=== PATIENT | male | born 1980 | race African-American/Black ===

== ENCOUNTER 2017-01-09 04:27 | Emergency (ER) | payer MEDICAID, OTHER ==
[~2017-01-09] VITALS: Ht 195.6 cm; Wt 94.0 kg
[~2017-01-09 04:27] MED LIST: DEPAKOTE PO; Docusate Sodium PO; FURO-151 PO; LAM25 PO; PHEN100C4 PO; VALP250C PO
[2017-01-09 07:32] VITALS: BP 128/71
== END 2017-01-09 08:10 | disposition home or self-care (01) ==
LOC: ER 08:05
DX: Z76.0 Encounter for issue of repeat prescription (principal)
CPT/HCPCS: 99283

== ENCOUNTER 2017-01-14 15:53 | Emergency (ER) | payer MEDICAID, OTHER ==
[~2017-01-14] VITALS: Ht 182.9 cm; Wt 86.0 kg
[2017-01-14] MEDS ORDERED: LORAZEPAM 2MG/ML CPJ ONE (16:13)
[2017-01-14] MEDS ORDERED: SODIUM CHLORIDE 0.9% 1,000 ML IV ONE (16:41)
[2017-01-14] MEDS ORDERED: LORAZEPAM 2MG/ML CPJ IV ONE (16:45)
[2017-01-14 18:41] LABS: BASOPHILS % 0.7 % (0.0-2.0); EOSINOPHILS % 0.4 % (0.0-5.0); HEMATOCRIT. 44.8 % (42.0-52.0); HEMOGLOBIN. 14.9 g/dL (14.0-18.0); LYMPHOCYTES % 10.7 % (20.0-50.0); MEAN CORPUSCULAR HEMOGLOBIN 30.1 pg (28.0-32.0); MEAN CORPUSCULAR HGB CONC 33.2 g/dL (31.0-37.0); MEAN CORPUSCULAR VOLUME 90.7 fL (80.0-94.0); MEAN PLATELET VOLUME 10.8 fl (7.4-10.4); MONOCYTES % 4.5 % (2.0-8.0); NEUTROPHILS % 83.7 % (40.0-76.0); PLATELET 143 x1000/uL (130-400); RED BLOOD CELL COUNT 4.94 mill/uL (4.7-6.1); RED CELL DISTRIBUTION WIDTH 14.4 % (11.6-14.6); WHITE BLOOD COUNT 6.9 x1000/uL (4.5-11.0)
[2017-01-14 18:45] LABS: CHLORIDE 105 mEq/L (98-107); INDEX HEMOLYSI 1 (1-3); INDEX ICTERIC 1 (1-4); INDEX LIPEMIC 1 (1-3)
[2017-01-14 18:55] LABS: ALANINE AMINOTRANSFERASE 16 IU/L (13-61); ALBUMIN 3.4 g/dL (3.4-5.0); ANION GAP 14; CALCIUM 8.8 mg/dL (8.5-10.1); CARBON DIOXIDE 28 mEq/L (21-32); ETHANOL BLOOD < 10 mg/dL; UREA NITROGEN BLOOD 15 mg/dL (7-21); eGFR > 60 mL/min (>60)
[2017-01-14 18:56] LABS: PHENYTOIN 0.8 ug/mL (10-20); VALPROIC ACID 44.7 ug/mL (50-100)
[2017-01-14 18:59] LABS: CARBAMAZEPINE < 0.5 ug/mL (4-12); PHENOBARBITAL < 2.1 ug/mL (15.0-40.0)
[2017-01-14] MEDS ORDERED: PHENYTOIN SODIUM 1,000 MG in SODIUM CHLORIDE 0.9% 100 ML IV ONE (19:15)
[2017-01-14 19:25] VITALS: BP 142/69
== END 2017-01-15 00:45 | disposition home or self-care (01) ==
LOC: ER 15:54
DX: G40.909 Epilepsy, unspecified, not intractable, without status epilepticus (principal); R91.1 Solitary pulmonary nodule; J18.9 Pneumonia, unspecified organism; F12.10 Cannabis abuse, uncomplicated; Z91.14 Patient's other noncompliance with medication regimen; Z98.890 Other specified postprocedural states
CPT/HCPCS: 36415; 70450; 71010; 80053; 80156; 80165; 80184; 80185; 85025; 93005; 96361; 96365; 99285; G0482; J1165; J2060; Z7610; J7030; J7050

== ENCOUNTER 2017-01-15 06:00 | Emergency (ER) | payer OTHER | END 2017-01-15 07:45 | disposition left against medical advice (07) | LOC: ER 07:33 | DX: Z53.21 Procedure and treatment not carried out due to patient leaving prior to being seen by health care provider (principal) ==

== ENCOUNTER 2017-01-24 02:48 | Emergency (ER) | payer MEDICAID, OTHER ==
[~2017-01-24] VITALS: Ht 195.6 cm; Wt 94.0 kg
[2017-01-24 02:59] VITALS: BP 143/69
[2017-01-24] MEDS ORDERED: PHENYTOIN SODIUM EXTENDED 100MG CAPSULE PO NR (07:30)
== END 2017-01-24 08:44 | disposition left against medical advice (07) ==
LOC: ER 05:09
DX: Z76.0 Encounter for issue of repeat prescription (principal); Z79.899 Other long term (current) drug therapy
CPT/HCPCS: 36415; 80185; 99283

== ENCOUNTER 2017-02-07 01:39 | Emergency (ER) | payer MEDICAID, OTHER ==
[~2017-02-07] VITALS: Ht 175.3 cm; Wt 69.0 kg
[2017-02-07] MEDS ORDERED: HYDROCODONE/ACETAMINOPHEN 10/325MG TABLET PO ONE (06:45)
[2017-02-07 08:37] VITALS: BP 133/81
== END 2017-02-07 09:47 | disposition home or self-care (01) ==
LOC: ER 05:41
DX: M25.552 Pain in left hip (principal); F17.210 Nicotine dependence, cigarettes, uncomplicated; G81.94 Hemiplegia, unspecified affecting left nondominant side
CPT/HCPCS: 73502; 99284; Z7610

== ENCOUNTER 2017-02-10 03:15 | Emergency (ER) | payer OTHER ==
[~2017-02-10] VITALS: Ht 193 cm; Wt 94.0 kg
[2017-02-10 03:39] VITALS: BP 149/87
== END 2017-02-10 07:09 | disposition left against medical advice (07) ==
LOC: ER 03:15
DX: M79.606 Pain in leg, unspecified (principal); Z53.21 Procedure and treatment not carried out due to patient leaving prior to being seen by health care provider

== ENCOUNTER 2017-02-16 03:13 | Emergency (ER) | payer OTHER ==
[~2017-02-16] VITALS: Ht 195.6 cm; Wt 91.0 kg
[2017-02-16] MEDS ORDERED: KETOROLAC 60MG/2ML VIAL IM ONE (07:30)
[2017-02-16 08:17] VITALS: BP 142/58
== END 2017-02-16 08:47 | disposition left against medical advice (07) ==
LOC: ER 07:12
DX: M79.652 Pain in left thigh (principal); Z79.899 Other long term (current) drug therapy; F17.200 Nicotine dependence, unspecified, uncomplicated
CPT/HCPCS: 96372; 99283; J1885; Z7610

== ENCOUNTER 2017-02-17 01:39 | Emergency (ER) | payer OTHER ==
[~2017-02-17] VITALS: Ht 195.6 cm; Wt 94.0 kg
[2017-02-17] MEDS: IBUPROFEN 600MG TABLET PO ONE (07:17)
[2017-02-17 07:51] VITALS: BP 138/79
== END 2017-02-17 08:05 | disposition home or self-care (01) ==
LOC: ER 01:40
DX: R60.0 Localized edema (principal); Z79.899 Other long term (current) drug therapy; F17.200 Nicotine dependence, unspecified, uncomplicated
CPT/HCPCS: 99283; Z7610

== ENCOUNTER 2017-03-03 02:01 | Emergency (ER) | payer MEDICAID, OTHER ==
[~2017-03-03] VITALS: Ht 195.6 cm; Wt 94.0 kg
[2017-03-03 06:17] VITALS: BP 140/81
[2017-03-03] MEDS ORDERED: ACETAMINOPHEN 500MG TABLET PO ONE (07:00)
== END 2017-03-03 08:03 | disposition home or self-care (01) ==
LOC: ER 02:01
DX: M25.552 Pain in left hip (principal); G89.29 Other chronic pain; F17.200 Nicotine dependence, unspecified, uncomplicated; Z92.29 Personal history of other drug therapy
CPT/HCPCS: 99282

== ENCOUNTER 2017-03-25 05:00 | Emergency (ER) | payer MEDICAID, OTHER ==
[~2017-03-25] VITALS: Ht 190.5 cm; Wt 94.0 kg
[2017-03-25 05:49] VITALS: BP 121/61
== END 2017-03-25 08:16 | disposition left against medical advice (07) ==
LOC: ER 08:09
DX: M25.552 Pain in left hip (principal); Z53.21 Procedure and treatment not carried out due to patient leaving prior to being seen by health care provider

== ENCOUNTER 2017-03-27 06:30 | Emergency (ER) | payer OTHER ==
[~2017-03-27] VITALS: Ht 182.9 cm; Wt 80.0 kg
[2017-03-27] MEDS ORDERED: IBUPROFEN 800MG TABLET PO ONE (08:45)
[2017-03-27 11:21] VITALS: BP 132/91
[2017-03-27] MEDS ORDERED: CEFTRIAXONE SODIUM 250 MG/VIAL IM ONE (11:45)
[2017-03-27] MEDS ORDERED: LIDOCAINE HCL 1% 20ML VIAL (Pyxis) INJ INFIL ONE (11:45)
[2017-03-27] MEDS ORDERED: AZITHROMYCIN 500 MG TABLET PO ONE (11:45)
== END 2017-03-27 13:14 | disposition home or self-care (01) ==
LOC: ER 06:30
DX: N45.3 Epididymo-orchitis (principal); L72.0 Epidermal cyst; L03.116 Cellulitis of left lower limb; K59.00 Constipation, unspecified; Z79.899 Other long term (current) drug therapy; Z98.890 Other specified postprocedural states
CPT/HCPCS: 76870; 93976; 96365; 99284; J0696; J3490; Z7610

== ENCOUNTER 2017-04-21 04:39 | Emergency (ER) | payer OTHER ==
[~2017-04-21] VITALS: Ht 180.3 cm; Wt 95.0 kg
[2017-04-21 07:30] VITALS: BP 110/80
[2017-04-21] MEDS ORDERED: PHENYTOIN SODIUM 100MG/2ML VIAL IV ONE (08:15)
[2017-04-21] MEDS ORDERED: PHENYTOIN SODIUM EXTENDED 100MG CAPSULE PO ONE (08:30)
== END 2017-04-21 09:00 | disposition home or self-care (01) ==
LOC: ER 08:20
DX: Z76.0 Encounter for issue of repeat prescription (principal); F17.200 Nicotine dependence, unspecified, uncomplicated
CPT/HCPCS: 36415; 80185; 99283; Z7610

== ENCOUNTER 2017-04-25 08:10 | Emergency (ER) | payer OTHER ==
[~2017-04-25] VITALS: Ht 195.6 cm; Wt 94.0 kg
[2017-04-25 08:17] VITALS: BP 126/72
[2017-04-25 12:45] LABS: BASOPHILS % 1.1 % (0.0-2.0); EOSINOPHILS % 3.8 % (0.0-5.0); HEMATOCRIT. 42.6 % (42.0-52.0); HEMOGLOBIN. 14.5 g/dL (14.0-18.0); LYMPHOCYTES % 34.1 % (20.0-50.0); MEAN CORPUSCULAR HEMOGLOBIN 31.5 pg (28.0-32.0); MEAN CORPUSCULAR VOLUME 92.2 fL (80.0-94.0); MEAN PLATELET VOLUME 10.7 fl (7.4-10.4); MONOCYTES % 8.1 % (2.0-8.0); NEUTROPHILS % 52.9 % (40.0-76.0); PLATELET 138 x1000/uL (130-400); RED BLOOD CELL COUNT 4.61 mill/uL (4.7-6.1); RED CELL DISTRIBUTION WIDTH 13.4 % (11.6-14.6)
[2017-04-25] MEDS ORDERED: HEPARIN 5000 UNITS/ML VIAL IV ONE (12:45)
[2017-04-25 12:52] LABS: PARTIAL THROMBOPLASTIN TIME 29.1 sec (24.0-34.0); PROTHROMBIN TIME 10.6 sec
[2017-04-25 13:01] LABS: CARBON DIOXIDE 30 mEq/L (21-32); CHLORIDE 108 mEq/L (98-107); PHENYTOIN 0.7 ug/mL (10-20)
[2017-04-25] MEDS ORDERED: PHENYTOIN SODIUM EXTENDED 100MG CAPSULE PO ONE ×2 (14:00→14:15)
[2017-04-25] MEDS ORDERED: WARFARIN SODIUM 5MG TABLET PO ONE (14:00)
== END 2017-04-25 15:32 | disposition left against medical advice (07) ==
LOC: ER 11:04 → CANBEDREQ 16:51
DX: I82.432 Acute embolism and thrombosis of left popliteal vein (principal); F17.210 Nicotine dependence, cigarettes, uncomplicated; Z79.01 Long term (current) use of anticoagulants; Z99.3 Dependence on wheelchair; Z87.820 Personal history of traumatic brain injury
CPT/HCPCS: 36415; 73502; 73552; 80053; 80185; 83880; 85025; 85610; 85730; 93971; 99285; Z7610

== ENCOUNTER 2017-04-26 16:26 | Emergency (ER) | payer OTHER ==
[~2017-04-26] VITALS: Ht 177.8 cm; Wt 89.0 kg
[2017-04-26] MEDS ORDERED: ENOXAPARIN 120MG/0.8ML SYR SUBCUT ONE (18:30)
[2017-04-26 20:30] VITALS: BP 147/70
== END 2017-04-26 22:20 | disposition home or self-care (01) ==
LOC: ER 16:33
DX: I82.402 Acute embolism and thrombosis of unspecified deep veins of left lower extremity (principal); Z86.73 Personal history of transient ischemic attack (TIA), and cerebral infarction without residual deficits
CPT/HCPCS: 96372; 99283; J1650; Z7610

== ENCOUNTER 2017-05-11 03:24 | Emergency (ER) | payer OTHER ==
[~2017-05-11] VITALS: Ht 195.6 cm; Wt 91.0 kg
[2017-05-11] MEDS ORDERED: FAMOTIDINE 20MG TABLET PO ONE (08:30)
[2017-05-11 08:50] VITALS: BP 120/75
[2017-05-11] MEDS ORDERED: LORATADINE 10MG TABLET PO SCH (09:00)
== END 2017-05-11 09:10 | disposition home or self-care (01) ==
LOC: ER 03:24
DX: B86 Scabies (principal); Z86.73 Personal history of transient ischemic attack (TIA), and cerebral infarction without residual deficits
CPT/HCPCS: 99283

== ENCOUNTER 2017-05-16 02:47 | Emergency (ER) | payer OTHER ==
[~2017-05-16] VITALS: Ht 195.6 cm; Wt 94.0 kg
[2017-05-16 04:31] VITALS: BP 154/91
== END 2017-05-16 05:15 | disposition home or self-care (01) ==
LOC: ER 02:47
DX: I82.502 Chronic embolism and thrombosis of unspecified deep veins of left lower extremity (principal); R03.0 Elevated blood-pressure reading, without diagnosis of hypertension; M24.50 Contracture, unspecified joint; Z79.01 Long term (current) use of anticoagulants; F17.210 Nicotine dependence, cigarettes, uncomplicated
CPT/HCPCS: 99281; Z7610

== ENCOUNTER 2017-05-21 03:59 | Emergency (ER) | payer OTHER ==
[~2017-05-21] VITALS: Ht 182.9 cm; Wt 91.0 kg
[2017-05-21 04:12] VITALS: BP 142/56
== END 2017-05-21 11:19 | disposition left against medical advice (07) ==
LOC: ER 03:59
DX: Z53.21 Procedure and treatment not carried out due to patient leaving prior to being seen by health care provider (principal)
CPT/HCPCS: J7030

== ENCOUNTER 2017-06-07 03:51 | Emergency (ER) | payer OTHER ==
[~2017-06-07] VITALS: Ht 193 cm; Wt 97.0 kg
[2017-06-07 04:01] VITALS: BP 120/57
== END 2017-06-08 10:39 | disposition left against medical advice (07) ==
LOC: ER 10:58
DX: M25.559 Pain in unspecified hip (principal); Z53.21 Procedure and treatment not carried out due to patient leaving prior to being seen by health care provider

== ENCOUNTER 2017-06-17 22:12 | Inpatient (IN) | payer MEDICAID, OTHER ==
[~2017-06-17] VITALS: Ht 190.5 cm; Wt 93.4 kg
[2017-06-18] MEDS ORDERED: ASPIRIN 81MG TABLET PO ONE (02:00)
[2017-06-18 02:18] LABS: BASOPHILS % 0.7 % (0.0-2.0); EOSINOPHILS % 3.2 % (0.0-5.0); HEMATOCRIT. 42.4 % (42.0-52.0); HEMOGLOBIN. 14.6 g/dL (14.0-18.0); MEAN CORPUSCULAR HEMOGLOBIN 31.7 pg (28.0-32.0); MEAN CORPUSCULAR VOLUME 91.8 fL (80.0-94.0); MEAN PLATELET VOLUME 10.2 fl (7.4-10.4); MONOCYTES % 13.4 % (2.0-8.0); NEUTROPHILS % 57.7 % (40.0-76.0); PLATELET 157 x1000/uL (130-400); RED BLOOD CELL COUNT 4.61 mill/uL (4.7-6.1); RED CELL DISTRIBUTION WIDTH 13.2 % (11.6-14.6)
[2017-06-18 02:21] LABS: D-DIMER 0.41 mg/L FEU (<0.50); PROTHROMBIN TIME 10.9 sec (9.4-11.6)
[2017-06-18 02:32] LABS: CARBON DIOXIDE 26 mEq/L (21-32); CHLORIDE 100 mEq/L (98-107); ETHANOL BLOOD < 10 mg/dL; TROPONIN I < 0.02 ng/mL (0.00-0.04)
[2017-06-18 04:04] LABS: *AMPHETAMINES SCREEN URINE NEGATIVE (NEGATIVE); *BARBITURATES SCREEN URINE NEGATIVE (NEGATIVE); *BENZODIAZEPINES SCREEN URINE NEGATIVE (NEGATIVE); *COCAINE SCREEN URINE NEGATIVE (NEGATIVE); CANNABINOID URINE SCREEN PRESUMTIVE POSITIVE (NEGATIVE); METHADONE URINE SCREEN NEGATIVE (NEGATIVE); OPIATES URINE SCREEN NEGATIVE (NEGATIVE); PHENCYCLIDINE URINE SCREEN PRESUMTIVE POSITIVE (NEGATIVE)
[2017-06-18] MEDS ORDERED: VALPROATE SODIUM 1,000 MG in DEXT 5% WATER 100 ML IV NR (04:30)
[2017-06-18] MEDS ORDERED: PHENYTOIN SODIUM 1,000 MG in SODIUM CHLORIDE 0.9% 80 ML IV NR (04:30)
[2017-06-18] MEDS ORDERED: POTASSIUM BICARB/CIT ACID 25 MEQ TABLET.EFF PO NR (05:45)
[2017-06-18] MEDS: SODIUM CHLORIDE 0.9% INJ 3ML FLUSH IVF SCH ×2 (06:00→21:34)
[2017-06-18 09:00] VITALS: BP 129/74
[2017-06-18 09:37] VITALS: BP 129/74
[2017-06-18] MEDS ORDERED: FUROSEMIDE 40MG/4ML VIAL IVP SCH (10:00)
[2017-06-18 10:30] LABS: T4 FREE 0.94 ng/dL (0.76-1.46)
[2017-06-18] MEDS ORDERED: NA PHOS,M-B/NA PHOS,DI-BA ENEMA 118ML PR PRN (11:30)
[2017-06-18] MEDS ORDERED: CLONIDINE 0.1MG TABLET PO PRN (11:30)
[2017-06-18] MEDS ORDERED: DOCUSATE SODIUM 100MG CAPSULE PO PRN (11:30)
[2017-06-18] MEDS ORDERED: IPRATROPIUM/ALBUTEROL 0.5-3(2.5)MG/3ML NEB INH PRN (11:30)
[2017-06-18] MEDS ORDERED: GUAIFENESIN 200MG/10ML SUGAR FREE UDC PO PRN (11:30)
[2017-06-18] MEDS ORDERED: ACETAMINOPHEN 650MG/20.3ML UDC GT PRN (11:30)
[2017-06-18] MEDS ORDERED: ONDANSETRON HCL 4MG/2ML VIAL IV PRN (11:30)
[2017-06-18] MEDS ORDERED: HYDROCODONE/ACETAMINOPHEN 5/325MG TABLET PO PRN (11:30)
[2017-06-18] MEDS ORDERED: MAGNESIUM/ALUMINUM HYDROXIDE/SIMETHICONE 30ML UDC PO PRN (11:30)
[2017-06-18] MEDS: FUROSEMIDE 40MG/4ML VIAL IV SCH (11:30)
[2017-06-18] MEDS ORDERED: ACETAMINOPHEN 325MG TABLET PO PRN (11:30)
[2017-06-18] MEDS ORDERED: DIPHENHYDRAMINE 50MG/ML VIAL IV PRN (11:30)
[2017-06-18 12:00] VITALS: BP 135/71
[2017-06-18 16:00] VITALS: BP 125/56
[2017-06-18] MEDS ORDERED: RIVAROXABAN 10 MG TABLET PO SCH (17:00)
[2017-06-18] MEDS ORDERED: RIVAROXABAN 20 MG TABLET PO SCH (17:00)
[2017-06-18] MEDS: RIVAROXABAN 20 MG TABLET PO SCH (18:45)
[2017-06-18 20:00] VITALS: BP 139/58
[2017-06-18] MEDS ORDERED: PHENYTOIN SODIUM EXTENDED 100MG CAPSULE PO SCH (23:21)
[2017-06-19] VITALS: BP 140/60
[2017-06-19 01:15] LABS: CARBON DIOXIDE 28 mEq/L (21-32); CHLORIDE 107 mEq/L (98-107); CREATINE KINASE 172 IU/L (39-308)
[2017-06-19 01:17] LABS: CREATINE KINASE MB FRACTION 1.1 ng/mL (0.5-3.6); TROPONIN I < 0.02 ng/mL (0.00-0.04)
[2017-06-19 04:00] VITALS: BP 138/67
[2017-06-19] MEDS: VALPROIC ACID 250MG CAPSULE PO SCH ×2 (06:01→15:50)
[2017-06-19] MEDS: LAMOTRIGINE 25MG TABLET PO SCH ×2 (06:01→08:17)
[2017-06-19] MEDS: SODIUM CHLORIDE 0.9% INJ 3ML FLUSH IVF SCH ×2 (06:03→14:00)
[2017-06-19] MEDS: FUROSEMIDE 40MG/4ML VIAL IV SCH (08:17)
[2017-06-19] MEDS ORDERED: FUROSEMIDE 40MG TABLET PO SCH (09:00)
[2017-06-19 09:08] VITALS: BP 132/68
[2017-06-19 12:47] VITALS: BP 130/85
[2017-06-19 16:35] VITALS: BP 123/59
[2017-06-19] MEDS: RIVAROXABAN 20 MG TABLET PO SCH (17:03)
[2017-06-19 17:21] VITALS: BP 125/53
== END 2017-06-19 18:15 | disposition home or self-care (01) | DRG 197 ==
LOC: ER 22:12 → 6WST 06-18 02:12 → ENRESERV 06-18 07:07 → 6WST 06-18 10:09
PROVIDERS: ADMIT Family Medicine; ATTEND Family Medicine
DX: I82.432 Acute embolism and thrombosis of left popliteal vein (principal); E44.1 Mild protein-calorie malnutrition; G83.9 Paralytic syndrome, unspecified; Q24.0 Dextrocardia; I10 Essential (primary) hypertension; E78.00 Pure hypercholesterolemia, unspecified; E78.5 Hyperlipidemia, unspecified; E87.6 Hypokalemia; F17.210 Nicotine dependence, cigarettes, uncomplicated; G40.909 Epilepsy, unspecified, not intractable, without status epilepticus; J98.11 Atelectasis; Z79.01 Long term (current) use of anticoagulants; Z59.0 Homelessness; Z87.820 Personal history of traumatic brain injury; Z91.14 Patient's other noncompliance with medication regimen; Z79.899 Other long term (current) drug therapy; Z88.8 Allergy status to other drugs, medicaments and biological substances; Z68.25 Body mass index [BMI] 25.0-25.9, adult; Z86.718 Personal history of other venous thrombosis and embolism
CPT/HCPCS: 36415; 70450; 71010; 80048; 80053; 80061; 80165; 80185; 80305; 82550; 82553; 83036; 83605; 83690; 83880; 84439; 84443; 84484; 85025; 85379; 85610; 93005; 93306; 93970; 96365; 96366; 99291; C1893; G0482; J1165; J3490; J7050; J7060

== ENCOUNTER 2017-06-25 04:55 | Emergency (ER) | payer MEDICAID, OTHER ==
[~2017-06-25] VITALS: Ht 195.6 cm; Wt 97.0 kg
[2017-06-25 05:01] VITALS: BP 136/75
== END 2017-06-25 07:09 | disposition left against medical advice (07) ==
LOC: ER 04:55
DX: M79.605 Pain in left leg (principal); Z53.21 Procedure and treatment not carried out due to patient leaving prior to being seen by health care provider

== ENCOUNTER 2017-06-28 01:47 | Emergency (ER) | payer OTHER ==
[~2017-06-28] VITALS: Ht 185.4 cm; Wt 73.0 kg
[2017-06-28 07:45] VITALS: BP 130/88
== END 2017-06-28 09:53 | disposition home or self-care (01) ==
LOC: ER 02:51
DX: L25.9 Unspecified contact dermatitis, unspecified cause (principal); S70.369A Insect bite (nonvenomous), unspecified thigh, initial encounter; E78.00 Pure hypercholesterolemia, unspecified; I10 Essential (primary) hypertension; R56.9 Unspecified convulsions; W57.XXXA Bitten or stung by nonvenomous insect and other nonvenomous arthropods, initial encounter; Y93.89 Activity, other specified; Y92.89 Other specified places as the place of occurrence of the external cause
CPT/HCPCS: 99283

== ENCOUNTER 2017-07-10 02:56 | Emergency (ER) | payer OTHER ==
[~2017-07-10] VITALS: Ht 170.2 cm; Wt 72.0 kg
[2017-07-10] MEDS ORDERED: KETOROLAC 60MG/2ML VIAL IM ONE (06:45)
[2017-07-10 10:35] VITALS: BP 101/65
== END 2017-07-10 11:09 | disposition home or self-care (01) ==
LOC: ER 02:56
DX: M79.605 Pain in left leg (principal); Z91.018 Allergy to other foods; Z86.718 Personal history of other venous thrombosis and embolism; Z79.01 Long term (current) use of anticoagulants; Z87.828 Personal history of other (healed) physical injury and trauma
CPT/HCPCS: 73560; 93970; 96372; 99284; J1885

== ENCOUNTER 2017-07-13 04:46 | Emergency (ER) | payer OTHER ==
[~2017-07-13] VITALS: Ht 182.9 cm; Wt 93.0 kg
[2017-07-13 07:48] VITALS: BP 137/85
== END 2017-07-13 10:27 | disposition left against medical advice (07) ==
LOC: ER 04:46
DX: Z48.00 Encounter for change or removal of nonsurgical wound dressing (principal); Z53.21 Procedure and treatment not carried out due to patient leaving prior to being seen by health care provider

== ENCOUNTER 2017-07-15 09:11 | Emergency (ER) | payer OTHER | END 2017-07-15 10:55 | disposition left against medical advice (07) | LOC: ER 09:11 | DX: Z76.0 Encounter for issue of repeat prescription (principal); Z53.21 Procedure and treatment not carried out due to patient leaving prior to being seen by health care provider ==

== ENCOUNTER 2017-07-24 02:38 | Emergency (ER) | payer OTHER ==
[~2017-07-24] VITALS: Ht 195.6 cm; Wt 95.0 kg
[2017-07-24 02:50] VITALS: BP 138/79
[2017-07-24] MEDS ORDERED: KETOROLAC 30MG/ML VIAL IV STA (06:25)
[2017-07-24] MEDS ORDERED: SODIUM CHLORIDE 0.9% 1,000 ML IV ONE (06:25)
[2017-07-24] MEDS ORDERED: ONDANSETRON HCL 4MG/2ML VIAL IV STA (06:25)
[2017-07-24] MEDS ORDERED: KETOROLAC 60MG/2ML VIAL IM ONE (07:00)
== END 2017-07-24 09:20 | disposition left against medical advice (07) ==
LOC: ER 02:38
DX: M79.605 Pain in left leg (principal); G40.909 Epilepsy, unspecified, not intractable, without status epilepticus; Z87.828 Personal history of other (healed) physical injury and trauma; Z87.891 Personal history of nicotine dependence; Z91.011 Allergy to milk products; Z91.018 Allergy to other foods
CPT/HCPCS: 93971; 99284; J1885; J7030

== ENCOUNTER 2017-08-02 02:45 | Emergency (ER) | payer OTHER ==
[~2017-08-02] VITALS: Ht 195.6 cm; Wt 94.0 kg
[2017-08-02] MEDS ORDERED: KETOROLAC 30MG/ML VIAL IV STA (03:05)
[2017-08-02] MEDS ORDERED: MORPHINE SULFATE 2 MG/ML CPJ (NOT FOR IM USE) IV STA (03:24)
[2017-08-02 03:47] LABS: BASOPHILS % 0.8 % (0.0-2.0); EOSINOPHILS % 8.1 % (0.0-5.0); HEMATOCRIT. 43.2 % (42.0-52.0); HEMOGLOBIN. 14.7 g/dL (14.0-18.0); LYMPHOCYTES % 25.5 % (20.0-50.0); MEAN CORPUSCULAR VOLUME 94.3 fL (80.0-94.0); MEAN PLATELET VOLUME 10.6 fl (7.4-10.4); MONOCYTES % 6.9 % (2.0-8.0); NEUTROPHILS % 58.7 % (40.0-76.0); PLATELET 140 x1000/uL (130-400); RED BLOOD CELL COUNT 4.58 mill/uL (4.7-6.1); RED CELL DISTRIBUTION WIDTH 13.5 % (11.6-14.6)
[2017-08-02 04:02] LABS: CARBON DIOXIDE 24 mEq/L (21-32); CHLORIDE 110 mEq/L (98-107); ETHANOL BLOOD < 10 mg/dL
[2017-08-02 04:30] VITALS: BP 138/82
[2017-08-02] MEDS ORDERED: VALPROIC ACID 250MG CAPSULE PO NR (04:45)
[2017-08-02] MEDS ORDERED: PHENYTOIN SODIUM EXTENDED 100MG CAPSULE PO NR (04:45)
[2017-08-02 05:57] LABS: *AMPHETAMINES SCREEN URINE NEGATIVE (NEGATIVE); *BARBITURATES SCREEN URINE NEGATIVE (NEGATIVE); *BENZODIAZEPINES SCREEN URINE NEGATIVE (NEGATIVE); *COCAINE SCREEN URINE NEGATIVE (NEGATIVE); CANNABINOID URINE SCREEN PRESUMTIVE POSITIVE (NEGATIVE); METHADONE URINE SCREEN NEGATIVE (NEGATIVE); OPIATES URINE SCREEN NEGATIVE (NEGATIVE); PHENCYCLIDINE URINE SCREEN NEGATIVE (NEGATIVE)
[2017-08-02 06:08] LABS: D-DIMER 0.45 mg/L FEU (<0.50); PARTIAL THROMBOPLASTIN TIME 26.1 sec (23.4-31.0); PROTHROMBIN TIME 10.7 sec (9.4-11.6)
== END 2017-08-02 07:09 | disposition home or self-care (01) ==
LOC: ER 02:46
DX: R60.0 Localized edema (principal); S06.899S Other specified intracranial injury with loss of consciousness of unspecified duration, sequela; G81.94 Hemiplegia, unspecified affecting left nondominant side; X93.XXXS Assault by handgun discharge, sequela; F17.210 Nicotine dependence, cigarettes, uncomplicated; Z91.14 Patient's other noncompliance with medication regimen; Z91.011 Allergy to milk products; Z91.018 Allergy to other foods
CPT/HCPCS: 36415; 80053; 80165; 80185; 80305; 85025; 85379; 85610; 85730; 93970; 96374; 99285; G0482; J1885; Z7610

== ENCOUNTER 2017-08-25 03:24 | Emergency (ER) | payer OTHER ==
[~2017-08-25] VITALS: Ht 195.6 cm; Wt 98.0 kg
[2017-08-25] MEDS ORDERED: HYDROCODONE/ACETAMINOPHEN 5/325MG TABLET PO ONE (06:45)
[2017-08-25 07:35] VITALS: BP 107/65
[2017-08-25] MEDS ORDERED: PHENYTOIN SODIUM EXTENDED 100MG CAPSULE PO ONE (07:45)
[2017-08-25] MEDS ORDERED: DIVALPROEX SODIUM 250MG DR TABLET PO ONE (07:45)
== END 2017-08-25 08:15 | disposition home or self-care (01) ==
LOC: ER 03:24
DX: R21 Rash and other nonspecific skin eruption (principal); R60.0 Localized edema; I87.2 Venous insufficiency (chronic) (peripheral); R03.0 Elevated blood-pressure reading, without diagnosis of hypertension; F17.200 Nicotine dependence, unspecified, uncomplicated; Z91.011 Allergy to milk products
CPT/HCPCS: 99284; Z7610

== ENCOUNTER 2017-09-02 02:23 | Emergency (ER) | payer OTHER ==
[~2017-09-02] VITALS: Ht 195.6 cm; Wt 94.0 kg
[2017-09-02 06:40] VITALS: BP 127/78
== END 2017-09-02 07:04 | disposition home or self-care (01) ==
LOC: ER 02:47
DX: Z76.0 Encounter for issue of repeat prescription (principal); R56.9 Unspecified convulsions; F17.200 Nicotine dependence, unspecified, uncomplicated; Z91.011 Allergy to milk products
CPT/HCPCS: 99281

== ENCOUNTER 2017-09-10 02:03 | Emergency (ER) | payer OTHER ==
[~2017-09-10] VITALS: Ht 175.3 cm; Wt 97.0 kg
[2017-09-10 06:25] VITALS: BP 138/81
== END 2017-09-10 07:09 | disposition home or self-care (01) ==
LOC: ER 02:03
DX: R21 Rash and other nonspecific skin eruption (principal); Z91.011 Allergy to milk products
CPT/HCPCS: 99283; Z7610

== ENCOUNTER 2017-09-14 02:29 | Emergency (ER) | payer OTHER ==
[~2017-09-14] VITALS: Ht 193 cm; Wt 85.0 kg
[2017-09-14] MEDS ORDERED: NON FORMULARY PATIENT HOME MED EA INJ SCH (08:00)
[2017-09-14 09:00] LABS: EOSINOPHILS % 8.8 % (0.0-5.0); HEMATOCRIT. 43.9 % (42.0-52.0); HEMOGLOBIN. 14.5 g/dL (14.0-18.0); LYMPHOCYTES % 24.6 % (20.0-50.0); MEAN CORPUSCULAR HEMOGLOBIN 31.3 pg (28.0-32.0); MEAN CORPUSCULAR VOLUME 94.5 fL (80.0-94.0); MEAN PLATELET VOLUME 9.6 fl (7.4-10.4); MONOCYTES % 8.7 % (2.0-8.0); NEUTROPHILS % 56.9 % (40.0-76.0); PLATELET 208 x1000/uL (130-400); RED BLOOD CELL COUNT 4.65 mill/uL (4.7-6.1); RED CELL DISTRIBUTION WIDTH 13.8 % (11.6-14.6)
[2017-09-14 09:07] LABS: CHLORIDE 109 mEq/L (98-107)
[2017-09-14 09:18] LABS: CARBON DIOXIDE 31 mEq/L (21-32)
[2017-09-14 09:19] LABS: VALPROIC ACID < 3.0 ug/mL (50-100)
[2017-09-14 11:14] VITALS: BP 145/96
== END 2017-09-14 11:38 | disposition home or self-care (01) ==
LOC: ER 02:29
DX: L03.116 Cellulitis of left lower limb (principal); L03.115 Cellulitis of right lower limb; B35.4 Tinea corporis; Z91.011 Allergy to milk products
CPT/HCPCS: 36415; 80048; 80165; 80185; 85025; 99284; Z7610

== ENCOUNTER 2017-09-21 03:21 | Emergency (ER) | payer OTHER ==
[~2017-09-21] VITALS: Ht 195.6 cm; Wt 93.0 kg
[2017-09-21 03:32] VITALS: BP 127/68
== END 2017-09-21 09:02 | disposition left against medical advice (07) ==
LOC: ER 03:21
DX: R21 Rash and other nonspecific skin eruption (principal); Z53.21 Procedure and treatment not carried out due to patient leaving prior to being seen by health care provider

== ENCOUNTER 2017-10-01 04:21 | Emergency (ER) | payer OTHER | END 2017-10-01 05:39 | disposition left against medical advice (07) | LOC: ER 04:21 | DX: R21 Rash and other nonspecific skin eruption (principal); Z53.21 Procedure and treatment not carried out due to patient leaving prior to being seen by health care provider ==

== ENCOUNTER 2017-10-21 02:13 | Emergency (ER) | payer OTHER ==
[~2017-10-21] VITALS: Ht 193 cm; Wt 85.0 kg
[2017-10-21 02:26] VITALS: BP 135/68
== END 2017-10-21 09:48 | disposition left against medical advice (07) ==
LOC: ER 02:46
DX: Z53.21 Procedure and treatment not carried out due to patient leaving prior to being seen by health care provider (principal)

== ENCOUNTER 2017-10-26 04:10 | Emergency (ER) | payer OTHER ==
[~2017-10-26] VITALS: Ht 195.6 cm; Wt 98.0 kg
[2017-10-26 08:56] VITALS: BP 124/76
== END 2017-10-26 08:59 | disposition home or self-care (01) ==
LOC: ER 04:23
DX: G40.909 Epilepsy, unspecified, not intractable, without status epilepticus (principal); F17.200 Nicotine dependence, unspecified, uncomplicated; Z91.011 Allergy to milk products
CPT/HCPCS: 99283

== ENCOUNTER 2017-11-03 02:30 | Emergency (ER) | payer OTHER ==
[~2017-11-03] VITALS: Ht 195.6 cm; Wt 98.0 kg
[2017-11-03 02:47] VITALS: BP 140/82
== END 2017-11-03 10:46 | disposition left against medical advice (07) ==
LOC: ER 02:30
DX: Z53.21 Procedure and treatment not carried out due to patient leaving prior to being seen by health care provider (principal)

== ENCOUNTER 2017-11-15 01:27 | Emergency (ER) | payer OTHER ==
[~2017-11-15] VITALS: Ht 195.6 cm; Wt 97.0 kg
[2017-11-15 01:36] VITALS: BP 142/80
== END 2017-11-15 09:31 | disposition left against medical advice (07) ==
LOC: ER 01:27
DX: Z53.21 Procedure and treatment not carried out due to patient leaving prior to being seen by health care provider (principal); F17.210 Nicotine dependence, cigarettes, uncomplicated

== ENCOUNTER 2017-12-13 06:25 | Emergency (ER) | payer OTHER ==
[~2017-12-13] VITALS: Ht 195.6 cm; Wt 85.0 kg
[2017-12-13] MEDS ORDERED: PHENYTOIN SODIUM EXTENDED 100MG CAPSULE PO ONE (11:30)
[2017-12-13 11:55] VITALS: BP 145/89
[2017-12-19 10:06] LABS: BARBITURATE SCREEN Negative ug/mL (Cutoff:0.1); BENZODIAZEPINE SCREEN Negative ng/mL (Cutoff:20); OPIATES SCREEN Negative ng/mL (Cutoff:5); PHENCYCLIDINE SCREEN Negative ng/mL (Cutoff:8)
== END 2017-12-13 12:05 | disposition home or self-care (01) ==
LOC: ER 07:38
DX: G40.909 Epilepsy, unspecified, not intractable, without status epilepticus (principal); Z76.0 Encounter for issue of repeat prescription; F17.200 Nicotine dependence, unspecified, uncomplicated; Z91.011 Allergy to milk products
CPT/HCPCS: 36415; 80165; 80185; 80307; 99284

== ENCOUNTER 2017-12-18 03:36 | Emergency (ER) | payer OTHER ==
[~2017-12-18] VITALS: Ht 195.6 cm; Wt 97.0 kg
[2017-12-18 06:24] VITALS: BP 112/65
== END 2017-12-18 08:01 | disposition home or self-care (01) ==
LOC: ER 03:36
DX: Z76.0 Encounter for issue of repeat prescription (principal); Z91.011 Allergy to milk products; Z91.018 Allergy to other foods
CPT/HCPCS: 99283; Z7610

== ENCOUNTER 2017-12-19 04:10 | Emergency (ER) | payer OTHER ==
[~2017-12-19] VITALS: Ht 188 cm; Wt 100.0 kg
[2017-12-19] MEDS ORDERED: ACETAMINOPHEN 325MG TABLET PO ONE (08:45)
[2017-12-19 09:05] LABS: BASOPHILS % 1.1 % (0.0-2.0); EOSINOPHILS % 4.9 % (0.0-5.0); HEMATOCRIT. 38.6 % (42.0-52.0); HEMOGLOBIN. 13.2 g/dL (14.0-18.0); LYMPHOCYTES % 31.8 % (20.0-50.0); MEAN CORPUSCULAR HEMOGLOBIN 31.2 pg (28.0-32.0); MEAN PLATELET VOLUME 10.3 fl (7.4-10.4); MONOCYTES % 6.9 % (2.0-8.0); NEUTROPHILS % 55.3 % (40.0-76.0); PLATELET 190 x1000/uL (130-400); RED BLOOD CELL COUNT 4.24 mill/uL (4.7-6.1)
[2017-12-19 09:14] LABS: CHLORIDE 109 mEq/L (98-107)
[2017-12-19 09:24] LABS: INR 1.1; PARTIAL THROMBOPLASTIN TIME 26.9 sec (23.4-31.0)
[2017-12-19] MEDS ORDERED: ENOXAPARIN 40MG/0.4ML SYR SUBCUT ONE (10:00)
[2017-12-19] MEDS ORDERED: ENOXAPARIN 80MG/0.8ML SYR SUBCUT ONE ×2 (10:15→14:30)
[2017-12-19] MEDS ORDERED: CEPHALEXIN 500MG CAPSULE PO ONE (10:30)
[2017-12-19] MEDS ORDERED: ACETAMINOPHEN 325MG TABLET PO PRN (10:30)
[2017-12-19 11:35] VITALS: BP 140/72
[2017-12-19] MEDS ORDERED: ENOXAPARIN 80MG/0.8ML SYR SUBCUT NR (14:22)
== END 2017-12-19 15:02 | disposition left against medical advice (07) ==
LOC: ER 04:10 → EDBEDREQ 10:24 → ER 15:02 → CANBEDREQ 16:41
DX: I82.411 Acute embolism and thrombosis of right femoral vein (principal); G40.909 Epilepsy, unspecified, not intractable, without status epilepticus; Z59.0 Homelessness
CPT/HCPCS: 36415; 71045; 80053; 83880; 85025; 85610; 85730; 93005; 93970; 96372; 99285

== ENCOUNTER 2018-01-23 02:50 | Emergency (ER) | payer MEDICAID, OTHER ==
[~2018-01-23] VITALS: Ht 195.6 cm; Wt 97.5 kg
[2018-01-23 08:56] LABS: KETONES URINE NEGATIVE (NEGATIVE); LEUKOCYTE ESTERASE URINE NEGATIVE (NEGATIVE); NITRITE URINE NEGATIVE (NEGATIVE); OCCULT BLOOD URINE NEGATIVE (NEGATIVE); PH URINE 6.5 (4.5-8.0); PROTEIN URINE NEGATIVE (NEGATIVE); SPECIFIC GRAVITY URINE 1.015 (1.005-1.030)
[2018-01-23 08:59] LABS: CLARITY URINE CLEAR (CLEAR); COLOR URINE YELLOW (YELLOW)
[2018-01-23 09:52] VITALS: BP 158/92
== END 2018-01-23 10:34 | disposition left against medical advice (07) ==
LOC: ER 04:08
DX: M79.89 Other specified soft tissue disorders (principal); M79.661 Pain in right lower leg; F17.200 Nicotine dependence, unspecified, uncomplicated
CPT/HCPCS: 81003; 99283

== ENCOUNTER 2018-01-28 04:49 | Emergency (ER) | payer MEDICAID, OTHER ==
[~2018-01-28] VITALS: Ht 195.6 cm; Wt 95.0 kg
[2018-01-28 05:24] VITALS: BP 159/87
== END 2018-01-28 11:56 | disposition left against medical advice (07) ==
LOC: ER 04:49
DX: Z00.8 Encounter for other general examination (principal); Z53.21 Procedure and treatment not carried out due to patient leaving prior to being seen by health care provider

== ENCOUNTER 2018-01-30 03:16 | Emergency (ER) | payer MEDICAID, OTHER ==
[~2018-01-30] VITALS: Ht 195.6 cm; Wt 94.0 kg
[2018-01-30 03:49] VITALS: BP 128/69
== END 2018-01-30 09:21 | disposition left against medical advice (07) ==
LOC: ER 03:16
DX: Z53.21 Procedure and treatment not carried out due to patient leaving prior to being seen by health care provider (principal)

== ENCOUNTER 2018-02-03 01:35 | Emergency (ER) | payer OTHER ==
[~2018-02-03] VITALS: Ht 185.4 cm; Wt 97.0 kg
[2018-02-03 06:40] VITALS: BP 141/89
== END 2018-02-03 08:00 | disposition left against medical advice (07) ==
LOC: ER 01:35
DX: M79.604 Pain in right leg (principal); Z53.21 Procedure and treatment not carried out due to patient leaving prior to being seen by health care provider

== ENCOUNTER 2018-02-04 17:53 | Emergency (ER) | payer MEDICAID, OTHER ==
[~2018-02-04] VITALS: Ht 193 cm; Wt 90.0 kg
[2018-02-04] MEDS ORDERED: TRAMADOL 50MG TABLET PO ONE (21:15)
[2018-02-04] MEDS ORDERED: KETOROLAC 60MG/2ML VIAL IM ONE (21:15)
[2018-02-04 22:06] VITALS: BP 135/77
== END 2018-02-04 22:40 | disposition home or self-care (01) ==
LOC: ER 18:02
DX: S70.02XA Contusion of left hip, initial encounter (principal); G40.909 Epilepsy, unspecified, not intractable, without status epilepticus; Z91.011 Allergy to milk products; Z86.718 Personal history of other venous thrombosis and embolism; Z99.3 Dependence on wheelchair; V09.9XXA Pedestrian injured in unspecified transport accident, initial encounter; Y93.89 Activity, other specified; Y92.89 Other specified places as the place of occurrence of the external cause; Y99.8 Other external cause status
CPT/HCPCS: 72170; 73552; 96372; 99284; J1885; Z7610

== ENCOUNTER 2018-02-09 23:19 | Emergency (ER) | payer OTHER ==
[~2018-02-09] VITALS: Ht 193 cm; Wt 93.0 kg
[2018-02-10 07:59] VITALS: BP 138/77
== END 2018-02-10 08:20 | disposition home or self-care (01) ==
LOC: ER 23:19
DX: I82.492 Acute embolism and thrombosis of other specified deep vein of left lower extremity (principal); F17.200 Nicotine dependence, unspecified, uncomplicated; G40.909 Epilepsy, unspecified, not intractable, without status epilepticus; Z91.011 Allergy to milk products; Z91.018 Allergy to other foods; Z98.890 Other specified postprocedural states
CPT/HCPCS: 99283; Z7610

== ENCOUNTER 2018-02-12 01:58 | Emergency (ER) | payer OTHER ==
[~2018-02-12] VITALS: Ht 195.6 cm; Wt 93.0 kg
[2018-02-12 05:35] VITALS: BP 159/78
[2018-02-12] MEDS ORDERED: ACETAMINOPHEN 325MG TABLET PO ONE (07:15)
[2018-02-12] MEDS ORDERED: RIVAROXABAN 15 MG TABLET PO SCH (17:00)
== END 2018-02-12 09:50 | disposition home or self-care (01) ==
LOC: ER 01:58
DX: I82.409 Acute embolism and thrombosis of unspecified deep veins of unspecified lower extremity (principal); L03.119 Cellulitis of unspecified part of limb; I10 Essential (primary) hypertension; F17.200 Nicotine dependence, unspecified, uncomplicated; Z91.19 Patient's noncompliance with other medical treatment and regimen; Z86.718 Personal history of other venous thrombosis and embolism
CPT/HCPCS: 99283

== ENCOUNTER 2018-02-16 02:42 | Emergency (ER) | payer OTHER ==
[~2018-02-16] VITALS: Ht 193 cm; Wt 98.0 kg
[2018-02-16] MEDS ORDERED: IBUPROFEN 800MG TABLET PO ONE (03:45)
[2018-02-16] MEDS ORDERED: RIVAROXABAN 15 MG TABLET PO ONE (03:45)
[2018-02-16 06:39] VITALS: BP 139/62
== END 2018-02-16 06:43 | disposition home or self-care (01) ==
LOC: ER 03:01
DX: I82.493 Acute embolism and thrombosis of other specified deep vein of lower extremity, bilateral (principal); I10 Essential (primary) hypertension; R56.9 Unspecified convulsions; F17.200 Nicotine dependence, unspecified, uncomplicated; Z91.011 Allergy to milk products; Z91.018 Allergy to other foods; Z98.890 Other specified postprocedural states
CPT/HCPCS: 99283

== ENCOUNTER 2018-03-12 05:21 | Emergency (ER) | payer OTHER ==
[~2018-03-12] VITALS: Ht 194.9 cm; Wt 98.0 kg
[2018-03-12 05:26] VITALS: BP 143/65
== END 2018-03-12 11:24 | disposition left against medical advice (07) ==
LOC: ER 05:21
DX: M79.605 Pain in left leg (principal); Z53.21 Procedure and treatment not carried out due to patient leaving prior to being seen by health care provider

== ENCOUNTER 2018-03-31 02:55 | Emergency (ER) | payer OTHER ==
[~2018-03-31] VITALS: Ht 193 cm; Wt 91.0 kg
[2018-03-31] MEDS ORDERED: BACITRACIN ZINC OINT UDPKT TOP ONE (08:15)
[2018-03-31 09:23] VITALS: BP 127/89
== END 2018-03-31 09:25 | disposition home or self-care (01) ==
LOC: ER 02:55
DX: S80.812A Abrasion, left lower leg, initial encounter (principal); I82.5Z2 Chronic embolism and thrombosis of unspecified deep veins of left distal lower extremity; Z91.011 Allergy to milk products; X58.XXXA Exposure to other specified factors, initial encounter; Y93.89 Activity, other specified; Y92.89 Other specified places as the place of occurrence of the external cause; Y99.8 Other external cause status
CPT/HCPCS: 99283; Z7610

== ENCOUNTER 2018-04-14 03:54 | Emergency (ER) | payer OTHER ==
[~2018-04-14] VITALS: Ht 193 cm; Wt 94.0 kg
[2018-04-14 04:02] VITALS: BP 114/71
== END 2018-04-14 10:27 | disposition left against medical advice (07) ==
LOC: ER 04:23
DX: M79.605 Pain in left leg (principal); Z53.21 Procedure and treatment not carried out due to patient leaving prior to being seen by health care provider

== ENCOUNTER 2018-04-27 06:19 | Emergency (ER) | payer OTHER ==
[~2018-04-27] VITALS: Ht 193 cm; Wt 95.0 kg
[2018-04-27 08:01] VITALS: BP 135/74
== END 2018-04-27 10:49 | disposition left against medical advice (07) ==
LOC: ER 06:19
DX: Z53.21 Procedure and treatment not carried out due to patient leaving prior to being seen by health care provider (principal)

== ENCOUNTER 2018-05-21 22:42 | Emergency (ER) | payer OTHER ==
[~2018-05-21] VITALS: Ht 195.6 cm; Wt 94.0 kg
[2018-05-21 22:51] VITALS: BP 151/89
== END 2018-05-21 23:53 | disposition home or self-care (01) ==
LOC: ER 22:42
DX: R56.9 Unspecified convulsions (principal); Z76.0 Encounter for issue of repeat prescription; Z91.011 Allergy to milk products; Z98.890 Other specified postprocedural states; Z79.899 Other long term (current) drug therapy
CPT/HCPCS: 99283

== ENCOUNTER 2018-05-22 05:38 | Emergency (ER) | payer OTHER ==
[~2018-05-22] VITALS: Ht 195.6 cm; Wt 94.0 kg
[2018-05-22 07:04] VITALS: BP 124/67
== END 2018-05-22 07:20 | disposition home or self-care (01) ==
LOC: ER 05:38
DX: L03.115 Cellulitis of right lower limb (principal); I87.2 Venous insufficiency (chronic) (peripheral); G40.909 Epilepsy, unspecified, not intractable, without status epilepticus; Z87.820 Personal history of traumatic brain injury; Z91.018 Allergy to other foods; Z91.011 Allergy to milk products; Z99.3 Dependence on wheelchair
CPT/HCPCS: 99283; Z7610

== ENCOUNTER 2018-05-23 23:00 | Emergency (ER) | payer OTHER ==
[~2018-05-23] VITALS: Ht 195.6 cm; Wt 94.0 kg
[2018-05-24] MEDS ORDERED: CLINDAMYCIN PHOSPHATE 600MG/4ML VIAL IM ONE (03:30)
[2018-05-24] MEDS ORDERED: CLINDAMYCIN PHOSPHATE 600MG/4ML VIAL IM NR (04:00)
[2018-05-24 04:05] VITALS: BP 140/84
== END 2018-05-24 04:19 | disposition home or self-care (01) ==
LOC: ER 23:00
DX: L03.115 Cellulitis of right lower limb (principal); F17.200 Nicotine dependence, unspecified, uncomplicated; I87.2 Venous insufficiency (chronic) (peripheral); Z79.899 Other long term (current) drug therapy; Z98.890 Other specified postprocedural states; Z91.011 Allergy to milk products
CPT/HCPCS: 96372; 99283; J3490; Z7610

== ENCOUNTER 2018-06-12 03:46 | Emergency (ER) | payer OTHER ==
[~2018-06-12] VITALS: Ht 195.6 cm; Wt 97.0 kg
[2018-06-12] MEDS ORDERED: MORPHINE SULFATE 4 MG/ML CPJ (NOT FOR IM USE) IV ONE (06:45)
[2018-06-12 07:05] VITALS: BP 139/78
== END 2018-06-12 13:00 | disposition home or self-care (01) ==
LOC: ER 11:28
DX: Z76.0 Encounter for issue of repeat prescription (principal); G40.909 Epilepsy, unspecified, not intractable, without status epilepticus; I10 Essential (primary) hypertension
CPT/HCPCS: 99283; Z7610

== ENCOUNTER 2018-06-30 02:48 | Emergency (ER) | payer OTHER ==
[~2018-06-30] VITALS: Ht 193 cm; Wt 98.0 kg
[2018-06-30] MEDS ORDERED: ACETAMINOPHEN 325MG TABLET PO ONE (06:45)
[2018-06-30 07:20] LABS: BASOPHILS % 0.6 % (0.0-2.0); EOSINOPHILS % 3.4 % (0.0-5.0); HEMATOCRIT. 40.5 % (42.0-52.0); HEMOGLOBIN. 13.7 g/dL (14.0-18.0); LYMPHOCYTES % 39.2 % (20.0-50.0); MEAN CORPUSCULAR HEMOGLOBIN 31.4 pg (28.0-32.0); MEAN PLATELET VOLUME 9.5 fl (7.4-10.4); MONOCYTES % 7.6 % (2.0-8.0); NEUTROPHILS % 49.2 % (40.0-76.0); PLATELET 191 x1000/uL (130-400); RED BLOOD CELL COUNT 4.36 mill/uL (4.7-6.1); RED CELL DISTRIBUTION WIDTH 14.7 % (11.6-14.6)
[2018-06-30 07:26] LABS: CHLORIDE 109 mEq/L (98-107)
[2018-06-30 07:27] LABS: PARTIAL THROMBOPLASTIN TIME 28.6 sec (23.4-31.0); PROTHROMBIN TIME 10.4 sec (9.1-11.1)
[2018-06-30 07:47] VITALS: BP 129/82
[2018-06-30] MEDS ORDERED: RIVAROXABAN 15 MG TABLET PO SCH (17:00)
== END 2018-06-30 08:17 | disposition home or self-care (01) ==
LOC: ER 02:48
DX: I82.593 Chronic embolism and thrombosis of other specified deep vein of lower extremity, bilateral (principal); F17.200 Nicotine dependence, unspecified, uncomplicated; Z98.890 Other specified postprocedural states; Z79.899 Other long term (current) drug therapy; Z91.011 Allergy to milk products
CPT/HCPCS: 36415; 71045; 80053; 85025; 85610; 85730; 93005; 99285

== ENCOUNTER 2018-07-31 00:28 | Emergency (ER) | payer OTHER ==
[~2018-07-31] VITALS: Ht 195.6 cm; Wt 90.9 kg
[2018-07-31] MEDS ORDERED: PHENOBARBITAL 100MG TABLET PO ONE (04:15)
[2018-07-31 06:17] VITALS: BP 136/88
== END 2018-07-31 06:20 | disposition home or self-care (01) ==
LOC: ER 00:28
DX: G40.909 Epilepsy, unspecified, not intractable, without status epilepticus (principal); S20.469A Insect bite (nonvenomous) of unspecified back wall of thorax, initial encounter; W57.XXXA Bitten or stung by nonvenomous insect and other nonvenomous arthropods, initial encounter; Y93.9 Activity, unspecified; Y92.9 Unspecified place or not applicable
CPT/HCPCS: 99283

== ENCOUNTER 2018-08-03 17:34 | Emergency (ER) | payer OTHER ==
[~2018-08-03] VITALS: Ht 180.3 cm; Wt 75.0 kg
[2018-08-03] MEDS ORDERED: SODIUM CHLORIDE 0.9% 1,000 ML IV ONE (18:08)
[2018-08-03 18:52] LABS: BASOPHILS % 0.7 % (0.0-2.0); EOSINOPHILS % 10.3 % (0.0-5.0); HEMATOCRIT. 44.1 % (42.0-52.0); HEMOGLOBIN. 14.8 g/dL (14.0-18.0); LYMPHOCYTES % 26.5 % (20.0-50.0); MEAN CORPUSCULAR HEMOGLOBIN 31.4 pg (28.0-32.0); MEAN CORPUSCULAR VOLUME 93.4 fL (80.0-94.0); MEAN PLATELET VOLUME 10.7 fl (7.4-10.4); MONOCYTES % 9.1 % (2.0-8.0); NEUTROPHILS % 53.4 % (40.0-76.0); PLATELET 215 x1000/uL (130-400); RED BLOOD CELL COUNT 4.72 mill/uL (4.7-6.1); RED CELL DISTRIBUTION WIDTH 13.5 % (11.6-14.6)
[2018-08-03 18:59] LABS: CHLORIDE 108 mEq/L (98-107); INR 1.1; PROTHROMBIN TIME 10.7 sec (9.1-11.1)
[2018-08-03 19:09] LABS: ETHANOL BLOOD < 10 mg/dL
[2018-08-03] MEDS ORDERED: VALPROATE SODIUM 1,000 MG in DEXT 5% WATER 100 ML IV ONE (19:45)
[2018-08-04 05:20] VITALS: BP 119/69
== END 2018-08-04 05:28 | disposition home or self-care (01) ==
LOC: ER 17:34
DX: R56.9 Unspecified convulsions (principal); R21 Rash and other nonspecific skin eruption; B86 Scabies; I87.2 Venous insufficiency (chronic) (peripheral); Z91.14 Patient's other noncompliance with medication regimen; Z86.718 Personal history of other venous thrombosis and embolism; Z79.899 Other long term (current) drug therapy; Z91.011 Allergy to milk products
CPT/HCPCS: 36415; 80053; 80165; 80185; 85025; 85610; 93005; 96365; 99285; G0482; J3490; J7030; J7060

== ENCOUNTER 2018-08-15 04:34 | Emergency (ER) | payer MEDICAID, OTHER ==
[~2018-08-15] VITALS: Ht 195.6 cm; Wt 98.0 kg
[2018-08-15 05:38] VITALS: BP 136/84
== END 2018-08-15 05:55 | disposition home or self-care (01) ==
LOC: ER 04:34
DX: R56.9 Unspecified convulsions (principal); I10 Essential (primary) hypertension; Z91.011 Allergy to milk products; Z98.890 Other specified postprocedural states; Z79.899 Other long term (current) drug therapy
CPT/HCPCS: 99283

== ENCOUNTER 2018-08-15 09:57 | Emergency (ER) | payer MEDICAID | END 2018-08-15 10:10 | disposition left against medical advice (07) | LOC: ER 09:57 | DX: R68.89 Other general symptoms and signs (principal); Z76.0 Encounter for issue of repeat prescription; Z53.21 Procedure and treatment not carried out due to patient leaving prior to being seen by health care provider ==

== ENCOUNTER 2018-09-10 03:29 | Emergency (ER) | payer MEDICAID, OTHER ==
[~2018-09-10] VITALS: Ht 182.9 cm; Wt 91.0 kg
[2018-09-10 09:15] VITALS: BP 142/97
[2018-09-10] MEDS ORDERED: KETOROLAC 15MG/ML VIAL IM ONE (09:45)
== END 2018-09-10 10:24 | disposition left against medical advice (07) ==
LOC: ER 03:29
DX: M79.605 Pain in left leg (principal); M79.89 Other specified soft tissue disorders; I10 Essential (primary) hypertension; Z86.718 Personal history of other venous thrombosis and embolism; Z98.890 Other specified postprocedural states; Z79.899 Other long term (current) drug therapy; Z91.011 Allergy to milk products
CPT/HCPCS: 99283; J1885

== ENCOUNTER 2018-09-13 03:37 | Emergency (ER) | payer OTHER ==
[~2018-09-13] VITALS: Ht 195.6 cm; Wt 91.0 kg
[2018-09-13 03:40] VITALS: BP 142/82
== END 2018-09-13 08:15 | disposition home or self-care (01) ==
LOC: ER 03:37
DX: L25.9 Unspecified contact dermatitis, unspecified cause (principal); I10 Essential (primary) hypertension; Z79.899 Other long term (current) drug therapy; Z91.011 Allergy to milk products; Z86.718 Personal history of other venous thrombosis and embolism
CPT/HCPCS: 99282

== ENCOUNTER 2018-09-29 23:37 | Emergency (ER) | payer OTHER ==
[~2018-09-29] VITALS: Ht 193 cm; Wt 97.0 kg
[2018-09-30 07:04] VITALS: BP 136/66
== END 2018-09-30 09:06 | disposition home or self-care (01) ==
LOC: EDBD → ER 09-30 07:29
DX: B86 Scabies (principal); L08.9 Local infection of the skin and subcutaneous tissue, unspecified; R03.0 Elevated blood-pressure reading, without diagnosis of hypertension; Z91.011 Allergy to milk products; Z91.018 Allergy to other foods
CPT/HCPCS: 99283

== ENCOUNTER 2018-10-11 01:38 | Emergency (ER) | payer OTHER ==
[~2018-10-11] VITALS: Ht 198.1 cm; Wt 99.0 kg
[2018-10-11] MEDS ORDERED: KETOROLAC 30MG/ML VIAL IV STA (02:32)
[2018-10-11] MEDS ORDERED: CLINDAMYCIN 600 MG in DEXTROSE 5% WATER 50 ML IV ONE (02:45)
[2018-10-11 03:33] LABS: BASOPHILS % 0.9 % (0.0-2.0); EOSINOPHILS % 7.7 % (0.0-5.0); HEMATOCRIT. 44.1 % (42.0-52.0); HEMOGLOBIN. 14.7 g/dL (14.0-18.0); LYMPHOCYTES % 27.8 % (20.0-50.0); MEAN CORPUSCULAR HEMOGLOBIN 30.7 pg (28.0-32.0); MEAN CORPUSCULAR VOLUME 92.5 fL (80.0-94.0); MEAN PLATELET VOLUME 10.7 fl (7.4-10.4); MONOCYTES % 8.1 % (2.0-8.0); NEUTROPHILS % 55.5 % (40.0-76.0); PLATELET 193 x1000/uL (130-400); RED BLOOD CELL COUNT 4.77 mill/uL (4.7-6.1); RED CELL DISTRIBUTION WIDTH 12.8 % (11.6-14.6)
[2018-10-11 03:40] LABS: CHLORIDE 108 mEq/L (98-107)
[2018-10-11 03:42] LABS: INR 1.1; PROTHROMBIN TIME 10.6 sec (9.1-11.1)
[2018-10-11] MEDS ORDERED: SODIUM CHLORIDE 0.9% 1000ML BAG (SEPSIS BOLUS) IV ONE (04:30)
[2018-10-11 07:46] VITALS: BP 134/88
== END 2018-10-12 00:06 | disposition short-term general hospital (02) ==
LOC: EDBD → ER 01:38
DX: L03.116 Cellulitis of left lower limb (principal); L03.115 Cellulitis of right lower limb; Z86.718 Personal history of other venous thrombosis and embolism
CPT/HCPCS: 36415; 80053; 83605; 85025; 85610; 87040; 93971; 96365; 96375; 99285; J1885; J3490; J7030; J7060; Z7610

== ENCOUNTER 2018-11-02 00:31 | Emergency (ER) | payer OTHER ==
[~2018-11-02] VITALS: Ht 195.6 cm; Wt 98.0 kg
[2018-11-02 01:47] VITALS: BP 177/89
== END 2018-11-02 05:48 | disposition home or self-care (01) ==
LOC: EDBD → ER 00:31
DX: M79.662 Pain in left lower leg (principal); G89.29 Other chronic pain; G40.909 Epilepsy, unspecified, not intractable, without status epilepticus; I10 Essential (primary) hypertension; Z87.820 Personal history of traumatic brain injury; Z91.011 Allergy to milk products; Z98.890 Other specified postprocedural states; Z91.018 Allergy to other foods
CPT/HCPCS: 99283; Z7610

== ENCOUNTER 2018-11-19 02:49 | Emergency (ER) | payer OTHER ==
[~2018-11-19] VITALS: Ht 177.8 cm; Wt 77.0 kg
[2018-11-19] MEDS ORDERED: DIPHENHYDRAMINE 25MG CAPSULE PO ONE (08:45)
[2018-11-19 09:06] VITALS: BP 138/71
== END 2018-11-19 09:10 | disposition home or self-care (01) ==
LOC: EDBD → ER 03:33
DX: L29.9 Pruritus, unspecified (principal); I10 Essential (primary) hypertension; Z86.718 Personal history of other venous thrombosis and embolism; Z98.890 Other specified postprocedural states; Z91.011 Allergy to milk products; Z79.899 Other long term (current) drug therapy
CPT/HCPCS: 99283

== ENCOUNTER 2018-11-20 03:58 | Emergency (ER) | payer OTHER ==
[~2018-11-20] VITALS: Ht 193 cm; Wt 97.0 kg
[2018-11-20 04:10] VITALS: BP 148/91
[2018-11-20] MEDS ORDERED: BACITRACIN 15GM TUBE TOP ONE (07:00)
== END 2018-11-20 07:05 | disposition home or self-care (01) ==
LOC: EDBD → ER 03:58
DX: S30.810A Abrasion of lower back and pelvis, initial encounter (principal); X58.XXXA Exposure to other specified factors, initial encounter; Y93.9 Activity, unspecified; Y92.89 Other specified places as the place of occurrence of the external cause; G81.94 Hemiplegia, unspecified affecting left nondominant side; R03.0 Elevated blood-pressure reading, without diagnosis of hypertension
CPT/HCPCS: 99282

== ENCOUNTER 2018-12-12 05:16 | Emergency (ER) | payer MEDICAID, OTHER ==
[~2018-12-12] VITALS: Ht 195.6 cm; Wt 97.8 kg
[2018-12-12 06:26] VITALS: BP 142/71
== END 2018-12-12 06:28 | disposition home or self-care (01) ==
LOC: EDBD → ER 05:16
DX: R56.9 Unspecified convulsions (principal); I10 Essential (primary) hypertension; Z98.890 Other specified postprocedural states; Z79.899 Other long term (current) drug therapy; Z91.011 Allergy to milk products
CPT/HCPCS: 99283

== ENCOUNTER 2018-12-18 04:02 | Emergency (ER) | payer MEDICAID ==
[~2018-12-18] VITALS: Ht 195.6 cm; Wt 97.5 kg
[2018-12-18 04:12] VITALS: BP 140/78
== END 2018-12-18 07:51 | disposition left against medical advice (07) ==
LOC: EDBD → ER 04:02
DX: I10 Essential (primary) hypertension (principal); Z53.21 Procedure and treatment not carried out due to patient leaving prior to being seen by health care provider

== ENCOUNTER 2018-12-27 04:15 | Emergency (ER) | payer MEDICAID ==
[~2018-12-27] VITALS: Ht 195.6 cm; Wt 98.0 kg
[2018-12-27 08:54] VITALS: BP 169/95
== END 2018-12-27 08:58 | disposition home or self-care (01) ==
LOC: ER 04:15
DX: Z76.0 Encounter for issue of repeat prescription (principal); I10 Essential (primary) hypertension
CPT/HCPCS: 99283; Z7610

== ENCOUNTER 2019-01-18 04:43 | Emergency (ER) | payer MEDICAID ==
[~2019-01-18] VITALS: Ht 193 cm; Wt 127.0 kg
[2019-01-18] MEDS ORDERED: KETOROLAC 30MG/ML VIAL IM ONE (07:15)
[2019-01-18 07:50] LABS: BASOPHILS % 1.1 % (0.0-2.0); EOSINOPHILS % 7.8 % (0.0-5.0); HEMATOCRIT. 43.2 % (42.0-52.0); HEMOGLOBIN. 14.5 g/dL (14.0-18.0); LYMPHOCYTES % 26.4 % (20.0-50.0); MEAN CORPUSCULAR HEMOGLOBIN 31.1 pg (28.0-32.0); MEAN CORPUSCULAR VOLUME 92.8 fL (80.0-94.0); MEAN PLATELET VOLUME 10.5 fl (7.4-10.4); MONOCYTES % 10.4 % (2.0-8.0); NEUTROPHILS % 54.3 % (40.0-76.0); PLATELET 174 x1000/uL (130-400); RED BLOOD CELL COUNT 4.66 mill/uL (4.7-6.1); RED CELL DISTRIBUTION WIDTH 14.6 % (11.6-14.6)
[2019-01-18 07:56] LABS: CHLORIDE 109 mEq/L (98-107)
[2019-01-18 09:36] VITALS: BP 128/68
== END 2019-01-18 10:03 | disposition home or self-care (01) ==
LOC: ER 04:43
DX: I87.2 Venous insufficiency (chronic) (peripheral) (principal); F17.200 Nicotine dependence, unspecified, uncomplicated; I10 Essential (primary) hypertension; Z98.890 Other specified postprocedural states; Z79.899 Other long term (current) drug therapy; Z91.011 Allergy to milk products
CPT/HCPCS: 36415; 80053; 85025; 93970; 96372; 99284; J1885

== ENCOUNTER 2019-01-25 12:32 | Emergency (ER) | payer MEDICAID ==
[~2019-01-25] VITALS: Ht 185.4 cm; Wt 103.0 kg
[2019-01-25] MEDS ORDERED: SODIUM CHLORIDE 0.9% 1,000 ML IV ONE (12:51)
[2019-01-25] MEDS ORDERED: LORAZEPAM 2MG/ML CPJ IV ONE (13:15)
[2019-01-25 14:16] LABS: EOSINOPHILS % 3.4 % (0.0-5.0); HEMATOCRIT. 45.6 % (42.0-52.0); HEMOGLOBIN. 15.1 g/dL (14.0-18.0); LYMPHOCYTES % 19.1 % (20.0-50.0); MEAN CORPUSCULAR HEMOGLOBIN 30.8 pg (28.0-32.0); MEAN CORPUSCULAR VOLUME 93.2 fL (80.0-94.0); MEAN PLATELET VOLUME 11.8 fl (7.4-10.4); MONOCYTES % 7.3 % (2.0-8.0); NEUTROPHILS % 69.2 % (40.0-76.0); PLATELET 214 x1000/uL (130-400); RED BLOOD CELL COUNT 4.89 mill/uL (4.7-6.1); RED CELL DISTRIBUTION WIDTH 14.3 % (11.6-14.6)
[2019-01-25 14:23] LABS: CHLORIDE 108 mEq/L (98-107)
[2019-01-25 14:24] LABS: PROTHROMBIN TIME 9.8 sec (9.6-11.0)
[2019-01-25 14:28] LABS: ETHANOL BLOOD < 10 mg/dL
[2019-01-25] MEDS ORDERED: DIVALPROEX SODIUM 125MG EC TABLET PO NR (15:15)
[2019-01-25 15:53] LABS: CLARITY URINE CLEAR (CLEAR); COLOR URINE YELLOW (YELLOW); KETONES URINE NEGATIVE (NEGATIVE); LEUKOCYTE ESTERASE URINE 1+ (NEGATIVE); NITRITE URINE NEGATIVE (NEGATIVE); OCCULT BLOOD URINE NEGATIVE (NEGATIVE); PROTEIN URINE NEGATIVE (NEGATIVE); SPECIFIC GRAVITY URINE 1.018 (1.005-1.030); UROBILINOGEN URINE 0.2 E.U./dL (0.2-1.0)
[2019-01-25 16:02] LABS: METHADONE URINE SCREEN NEGATIVE (NEGATIVE)
[2019-01-25 16:03] LABS: *AMPHETAMINES SCREEN URINE NEGATIVE (NEGATIVE); *BARBITURATES SCREEN URINE NEGATIVE (NEGATIVE); *BENZODIAZEPINES SCREEN URINE PRESUMTIVE POSITIVE (NEGATIVE); *COCAINE SCREEN URINE NEGATIVE (NEGATIVE); CANNABINOID URINE SCREEN PRESUMTIVE POSITIVE (NEGATIVE); OPIATES URINE SCREEN NEGATIVE (NEGATIVE); PHENCYCLIDINE URINE SCREEN NEGATIVE (NEGATIVE)
[2019-01-25] MEDS ORDERED: PHENYTOIN SODIUM 500 MG in SODIUM CHLORIDE 0.9% 50 ML IV ONE (17:00)
[2019-01-25] MEDS ORDERED: PHENYTOIN SODIUM EXTENDED 100MG CAPSULE PO ONE (17:15)
[2019-01-25 17:40] VITALS: BP 146/88
== END 2019-01-25 18:00 | disposition home or self-care (01) ==
LOC: ER 12:32 → CANBEDREQ 19:02
DX: G40.909 Epilepsy, unspecified, not intractable, without status epilepticus (principal); I10 Essential (primary) hypertension
CPT/HCPCS: 36415; 71045; 80053; 80165; 80185; 80305; 80320; 81003; 85025; 85610; 93005; 96374; 99284; J1165; J2060; J7030; G0480

== ENCOUNTER 2019-02-08 07:13 | Emergency (ER) | payer MEDICAID ==
[~2019-02-08] VITALS: Ht 182.9 cm; Wt 98.0 kg
[2019-02-08] MEDS ORDERED: ONDANSETRON HCL 4MG/2ML INJ IV STA (09:32)
[2019-02-08] MEDS ORDERED: MORPHINE SULFATE 4 MG/ML CPJ (NOT FOR IM USE) IV STA (09:32)
[2019-02-08] MEDS ORDERED: SODIUM CHLORIDE 0.9% 1,000 ML IV ONE ×2 (10:32→13:53)
[2019-02-08 10:49] LABS: HEMATOCRIT. 36.9 % (42.0-52.0); HEMOGLOBIN. 12.2 g/dL (14.0-18.0); MEAN CORPUSCULAR HEMOGLOBIN 30.4 pg (28.0-32.0); MEAN CORPUSCULAR VOLUME 92.4 fL (80.0-94.0); MEAN PLATELET VOLUME 10.2 fl (7.4-10.4); PLATELET 236 x1000/uL (130-400); RED BLOOD CELL COUNT 3.99 mill/uL (4.7-6.1); RED CELL DISTRIBUTION WIDTH 13.5 % (11.6-14.6)
[2019-02-08 11:03] LABS: CHLORIDE 106 mEq/L (98-107)
[2019-02-08 11:06] LABS: PLATELET ESTIMATE NORMAL
[2019-02-08] MEDS ORDERED: POTASSIUM CHLORIDE 20MEQ TABLET SR PO ONE (11:15)
[2019-02-08] MEDS ORDERED: VALPROIC ACID 250MG CAPSULE PO ONE (11:30)
[2019-02-08] MEDS ORDERED: PHENYTOIN SODIUM EXTENDED 100MG CAPSULE PO ONE (11:30)
[2019-02-08] MEDS ORDERED: MORPHINE SULFATE 4 MG/ML CPJ (NOT FOR IM USE) IV ONE (13:30)
[2019-02-08] MEDS ORDERED: MORPHINE SULFATE 10 MG/ML CPJ IM ONE (15:15)
[2019-02-08] MEDS ORDERED: LORAZEPAM 2MG/ML CPJ IM ONE (15:30)
[2019-02-08] MEDS ORDERED: SUCCINYLCHOLINE CHLORIDE 200MG/10ML IV ONE ×2 (16:30→17:22)
[2019-02-08] MEDS ORDERED: PROPOFOL 10MG/ML 100ML 100 ML IV ONE ×3 (16:30→18:31)
[2019-02-08] MEDS ORDERED: ETOMIDATE 2MG/ML 10ML VIAL IV ONE ×2 (16:30→17:22)
[2019-02-08] MEDS ORDERED: DEXTROSE 50% WATER 50ML SYRINGE IV ONE (17:22)
[2019-02-08] MEDS ORDERED: LIDOCAINE HCL 1% 20ML VIAL (Pyxis) INJ ONE (17:38)
[2019-02-08] MEDS ORDERED: LIDOCAINE HCL/EPINEPHRINE 0.5%-EPI 1:200,000 50 ML VIAL INFIL ONE (17:45)
[2019-02-08] MEDS ORDERED: LIDOCAINE HCL 2%/EPINEPHRINE/PF 10 ML VIAL INFIL ONE (17:45)
[2019-02-08] MEDS ORDERED: LIDOCAINE HCL/EPINEPHRINE 1%-EPI 1:100,000 50 ML VIAL INFIL ONE (17:45)
[2019-02-08] MEDS ORDERED: LIDOCAINE HCL/EPINEPHRINE 1%-EPI 1:100,000 20 ML VIAL INFIL ONE ×2 (17:45)
[2019-02-08 18:45] VITALS: BP 88/48
== END 2019-02-08 19:11 | disposition short-term general hospital (02) ==
LOC: ER 07:13
DX: S27.1XXA Traumatic hemothorax, initial encounter (principal); S22.42XA Multiple fractures of ribs, left side, initial encounter for closed fracture; G40.909 Epilepsy, unspecified, not intractable, without status epilepticus; E87.2 Acidosis; G82.20 Paraplegia, unspecified; W05.0XXA Fall from non-moving wheelchair, initial encounter; Y93.89 Activity, other specified; Y92.89 Other specified places as the place of occurrence of the external cause; Z99.3 Dependence on wheelchair
CPT/HCPCS: 31500; 32551; 36415; 51702; 71045; 71250; 74176; 80053; 80165; 80185; 83605; 85025; 86850; 86900; 86901; 86920; 87040; 96361; 96372; 96374; 96375; 96376; 99291; J0330; J2060; J2270; J2405; J2704; J3490; J7030; Z7610; P9016

== ENCOUNTER 2019-02-17 03:19 | Inpatient (IN) | payer MEDICAID ==
[~2019-02-17] VITALS: Ht 182.9 cm; Wt 94.6 kg
[2019-02-17] MEDS ORDERED: ONDANSETRON HCL 4MG/2ML INJ IV STA (03:34)
[2019-02-17 03:48] LABS: CLARITY URINE CLEAR (CLEAR); COLOR URINE DARK YELLOW (YELLOW); KETONES URINE TRACE (NEGATIVE); LEUKOCYTE ESTERASE URINE NEGATIVE (NEGATIVE); NITRITE URINE NEGATIVE (NEGATIVE); OCCULT BLOOD URINE NEGATIVE (NEGATIVE); PROTEIN URINE TRACE (NEGATIVE); SPECIFIC GRAVITY URINE 1.037 (1.005-1.030)
[2019-02-17 04:23] LABS: BASOPHILS % 0.7 % (0.0-2.0); EOSINOPHILS % 3.4 % (0.0-5.0); HEMATOCRIT. 40.4 % (42.0-52.0); HEMOGLOBIN. 13.3 g/dL (14.0-18.0); LYMPHOCYTES % 11.4 % (20.0-50.0); MEAN CORPUSCULAR HEMOGLOBIN 30.3 pg (28.0-32.0); MEAN PLATELET VOLUME 9.6 fl (7.4-10.4); MONOCYTES % 8.3 % (2.0-8.0); NEUTROPHILS % 76.2 % (40.0-76.0); PLATELET 248 x1000/uL (130-400); RED BLOOD CELL COUNT 4.39 mill/uL (4.7-6.1); RED CELL DISTRIBUTION WIDTH 14.9 % (11.6-14.6)
[2019-02-17 04:25] LABS: CHLORIDE 105 mEq/L (98-107)
[2019-02-17 04:35] LABS: CREATINE KINASE 180 IU/L (39-308)
[2019-02-17] MEDS ORDERED: CEFEPIME HCL 2000MG/VIAL INJ IV ONE (05:00)
[2019-02-17] MEDS ORDERED: AZITHROMYCIN 500 MG in DEXT 5% WATER 250 ML IV SCH (05:00)
[2019-02-17] MEDS ORDERED: VANCOMYCIN 1 G PREMIX 200 ML IV SCH (05:00)
[2019-02-17] MEDS ORDERED: SODIUM CHLORIDE 0.9% 1000ML BAG (SEPSIS BOLUS) IV ONE (05:30)
[2019-02-17] MEDS ORDERED: LIDOCAINE HCL 1% 20ML VIAL (Pyxis) INJ ONE (08:39)
[2019-02-17] MEDS ORDERED: CEFEPIME 2,000 MG in DEXT 5% WATER 100 ML IV NR (10:15)
[2019-02-17] MEDS ORDERED: LORAZEPAM 0.5MG TABLET PO PRN (11:45)
[2019-02-17] MEDS ORDERED: ONDANSETRON HCL 4MG/2ML INJ IV PRN (11:45)
[2019-02-17] MEDS ORDERED: ACETAMINOPHEN 325MG TABLET PO PRN (11:45)
[2019-02-17] MEDS ORDERED: HYDROMORPHONE HCL/PF 2MG/ML CPJ IV PRN (11:45)
[2019-02-17] MEDS ORDERED: IPRATROPIUM/ALBUTEROL 0.5-3(2.5)MG/3ML NEB INH PRN (11:45)
[2019-02-17] MEDS ORDERED: DOCUSATE SODIUM 100MG CAPSULE PO PRN (11:45)
[2019-02-17] MEDS ORDERED: CLONIDINE 0.1MG TABLET PO PRN (11:45)
[2019-02-17] MEDS ORDERED: HYDROCODONE/ACETAMINOPHEN 5/325MG TABLET PO PRN (11:45)
[2019-02-17 12:42] LABS: *AMPHETAMINES SCREEN URINE NEGATIVE (NEGATIVE); *BARBITURATES SCREEN URINE NEGATIVE (NEGATIVE)
[2019-02-17 12:43] LABS: *BENZODIAZEPINES SCREEN URINE NEGATIVE (NEGATIVE); *COCAINE SCREEN URINE NEGATIVE (NEGATIVE); CANNABINOID URINE SCREEN PRESUMTIVE POSITIVE (NEGATIVE); METHADONE URINE SCREEN NEGATIVE (NEGATIVE); OPIATES URINE SCREEN PRESUMTIVE POSITIVE (NEGATIVE); PHENCYCLIDINE URINE SCREEN NEGATIVE (NEGATIVE)
[2019-02-17 14:26] VITALS: BP 131/83
[2019-02-17] MEDS ORDERED: DEXTROSE 50% WATER 50ML SYRINGE IV PRN (15:30)
[2019-02-17] MEDS: BLOOD SUGAR DIAGNOSTIC STRIP TEST SCH ×2 (17:28→21:00)
[2019-02-17 18:00] VITALS: BP 155/75
[2019-02-17] MEDS: INSULIN LISPRO 100 UNITS/ML SUBCUT SCH ×2 (18:00→21:00)
[2019-02-17] MEDS: PIPERACILLIN/TAZ 3.375G PREMIX 50 ML IV SCH (21:00)
[2019-02-17] MEDS ORDERED: VANCOMYCIN 1500MG in DEXTROSE 5% WATER 250ML IV NR (22:00)
[2019-02-18] MEDS: PIPERACILLIN/TAZ 3.375G PREMIX 50 ML IV SCH ×4 (02:55→21:00)
[2019-02-18] MEDS: VANCOMYCIN 1 G PREMIX 200 ML IV SCH ×3 (05:46→22:00)
[2019-02-18] MEDS: BLOOD SUGAR DIAGNOSTIC STRIP TEST SCH ×4 (07:46→21:01)
[2019-02-18] MEDS: INSULIN LISPRO 100 UNITS/ML SUBCUT SCH ×4 (07:47→21:00)
[2019-02-18] MEDS: OLANZAPINE 10MG TABLET PO SCH (10:54)
[2019-02-18 16:00] VITALS: BP 132/93
[2019-02-18] MEDS ORDERED: LORAZEPAM 0.5MG TABLET PO PRN (16:00)
[2019-02-18] MEDS ORDERED: LORAZEPAM 2MG/ML CPJ IV PRN (16:00)
[2019-02-18 16:27] LABS: BASOPHILS % 0.4 % (0.0-2.0); EOSINOPHILS % 0.6 % (0.0-5.0); HEMATOCRIT. 36.3 % (42.0-52.0); HEMOGLOBIN. 11.2 g/dL (14.0-18.0); MEAN CORPUSCULAR HEMOGLOBIN 29.5 pg (28.0-32.0); MEAN CORPUSCULAR VOLUME 95.9 fL (80.0-94.0); MEAN PLATELET VOLUME 10.3 fl (7.4-10.4); MONOCYTES % 14.3 % (2.0-8.0); NEUTROPHILS % 75.7 % (40.0-76.0); PLATELET 210 x1000/uL (130-400); RED BLOOD CELL COUNT 3.78 mill/uL (4.7-6.1); RED CELL DISTRIBUTION WIDTH 15.9 % (11.6-14.6)
[2019-02-18 16:36] LABS: CHLORIDE 108 mEq/L (98-107)
[2019-02-18] MEDS: CLONIDINE 0.1MG TABLET PO SCH ×2 (16:37→21:01)
[2019-02-18] MEDS ORDERED: OLANZAPINE 5MG TABLET PO SCH (18:00)
[2019-02-18 20:00] VITALS: BP 145/69
[2019-02-18] MEDS: HALOPERIDOL LACTATE 5MG/ML VIAL IM PRN (21:00)
[2019-02-18 22:00] VITALS: BP 120/87
[2019-02-19 02:00] VITALS: BP 136/60
[2019-02-19] MEDS: PIPERACILLIN/TAZ 3.375G PREMIX 50 ML IV SCH ×4 (03:00→21:00)
[2019-02-19 04:00] VITALS: BP 109/63
[2019-02-19] MEDS: CLONIDINE 0.1MG TABLET PO SCH ×4 (04:00→22:00)
[2019-02-19] MEDS: HALOPERIDOL LACTATE 5MG/ML VIAL IM PRN ×2 (05:01→13:08)
[2019-02-19] MEDS: VANCOMYCIN 1 G PREMIX 200 ML IV SCH ×3 (06:00→22:00)
[2019-02-19 06:38] LABS: BASOPHILS % 0.5 % (0.0-2.0); EOSINOPHILS % 2.3 % (0.0-5.0); HEMATOCRIT. 30.2 % (42.0-52.0); HEMOGLOBIN. 10.2 g/dL (14.0-18.0); LYMPHOCYTES % 13.4 % (20.0-50.0); MEAN CORPUSCULAR HEMOGLOBIN 30.5 pg (28.0-32.0); MEAN PLATELET VOLUME 9.1 fl (7.4-10.4); MONOCYTES % 13.8 % (2.0-8.0); PLATELET 384 x1000/uL (130-400); RED BLOOD CELL COUNT 3.36 mill/uL (4.7-6.1); RED CELL DISTRIBUTION WIDTH 14.7 % (11.6-14.6)
[2019-02-19 07:13] LABS: CHLORIDE 107 mEq/L (98-107)
[2019-02-19] MEDS: BLOOD SUGAR DIAGNOSTIC STRIP TEST SCH ×4 (07:30→21:00)
[2019-02-19 08:00] VITALS: BP 133/82
[2019-02-19] MEDS: INSULIN LISPRO 100 UNITS/ML SUBCUT SCH ×4 (08:00→21:00)
[2019-02-19] MEDS: OLANZAPINE 10MG TABLET PO SCH (09:00)
[2019-02-19 10:22] LABS: VITAMIN B12 SERUM 413 pg/mL (211-911)
[2019-02-19] MEDS: FOLIC ACID 1MG TABLET PO SCH (13:00)
[2019-02-19] MEDS: THIAMINE HCL 100MG TABLET PO SCH (13:00)
[2019-02-19] MEDS ORDERED: MIDAZOLAM HCL 2 MG/2 ML VIAL IV SCH (13:00)
[2019-02-19] MEDS ORDERED: LIDOCAINE HCL/PF 1% 10 MG/ML 5ML VIAL IJ SCH (13:00)
[2019-02-19] MEDS: MULTIVITAMINS,THER W-MINERALS TABLET PO SCH (13:00)
[2019-02-19] MEDS ORDERED: FENTANYL CITRATE/PF 50MCG/ML 2ML VIAL IV SCH (13:00)
[2019-02-19 14:00] VITALS: BP 131/72
[2019-02-19] MEDS: VALPROIC ACID 250MG CAPSULE PO SCH ×2 (14:00→22:00)
[2019-02-19] MEDS ORDERED: ACETAMINOPHEN 325MG TABLET PO PRN (14:30)
[2019-02-19 16:00] VITALS: BP 118/65
[2019-02-19] MEDS: HYDROCODONE/ACETAMINOPHEN 5/325MG TABLET PO PRN (16:42)
[2019-02-19 18:00] VITALS: BP 144/72
[2019-02-19] MEDS: DOXYCYCLINE HYCLATE 100MG CAPSULE PO SCH (18:48)
[2019-02-19] MEDS: AMOXICILLIN/POTASSIUM CLAVULANATE 875/125MG TAB PO SCH (21:00)
[2019-02-19] MEDS ORDERED: PHENYTOIN SODIUM EXTENDED 100MG CAPSULE PO SCH (21:00)
[2019-02-20] MEDS: HYDROCODONE/ACETAMINOPHEN 5/325MG TABLET PO PRN ×2 (01:31→09:36)
[2019-02-20] MEDS: PIPERACILLIN/TAZ 3.375G PREMIX 50 ML IV SCH ×3 (03:00→15:00)
[2019-02-20] MEDS: CLONIDINE 0.1MG TABLET PO SCH ×3 (04:00→16:00)
[2019-02-20] MEDS: VANCOMYCIN 1 G PREMIX 200 ML IV SCH ×2 (06:00→14:00)
[2019-02-20] MEDS: VALPROIC ACID 250MG CAPSULE PO SCH ×2 (06:00→14:00)
[2019-02-20 06:04] LABS: BASOPHILS % 0.5 % (0.0-2.0); EOSINOPHILS % 2.1 % (0.0-5.0); HEMATOCRIT. 33.4 % (42.0-52.0); HEMOGLOBIN. 11.2 g/dL (14.0-18.0); LYMPHOCYTES % 11.4 % (20.0-50.0); MEAN CORPUSCULAR HEMOGLOBIN 30.4 pg (28.0-32.0); MEAN CORPUSCULAR VOLUME 90.6 fL (80.0-94.0); MEAN PLATELET VOLUME 9.3 fl (7.4-10.4); MONOCYTES % 10.6 % (2.0-8.0); NEUTROPHILS % 75.4 % (40.0-76.0); PLATELET 551 x1000/uL (130-400); RED BLOOD CELL COUNT 3.69 mill/uL (4.7-6.1); RED CELL DISTRIBUTION WIDTH 14.8 % (11.6-14.6)
[2019-02-20] MEDS: BLOOD SUGAR DIAGNOSTIC STRIP TEST SCH ×2 (06:20→12:00)
[2019-02-20 07:16] LABS: CHLORIDE 106 mEq/L (98-107)
[2019-02-20 08:00] VITALS: BP 113/80
[2019-02-20] MEDS: INSULIN LISPRO 100 UNITS/ML SUBCUT SCH ×2 (08:00→13:00)
[2019-02-20] MEDS: MULTIVITAMINS,THER W-MINERALS TABLET PO SCH (09:34)
[2019-02-20] MEDS: THIAMINE HCL 100MG TABLET PO SCH (09:34)
[2019-02-20] MEDS: OLANZAPINE 10MG TABLET PO SCH (09:34)
[2019-02-20] MEDS: FOLIC ACID 1MG TABLET PO SCH (09:34)
[2019-02-20] MEDS: DOXYCYCLINE HYCLATE 100MG CAPSULE PO SCH (09:34)
[2019-02-20] MEDS: AMOXICILLIN/POTASSIUM CLAVULANATE 875/125MG TAB PO SCH (09:36)
[2019-02-20 10:00] VITALS: BP 119/98
[2019-02-20] MEDS ORDERED: LIDOCAINE HCL 1% 20ML VIAL (Pyxis) INJ ONE (12:50)
[2019-02-21 06:11] LABS: HIV SCREEN 4G Non Reactive (Non Reactive)
== END 2019-02-20 15:30 | disposition left against medical advice (07) | DRG 720 ==
LOC: ER 03:19 → 5EST 04:59 → ENRESERV 13:12
PROVIDERS: ADMIT Internal Medicine; ATTEND Internal Medicine
PROC: 05HY33Z Insertion of Infusion Device into Upper Vein, Percutaneous Approach (ICD-10-PCS; principal; 2019-02-17)
PROC: B54MZZA Ultrasonography of Right Upper Extremity Veins, Guidance (ICD-10-PCS; 2019-02-17)
DX: A41.89 Other specified sepsis (principal); J96.00 Acute respiratory failure, unspecified whether with hypoxia or hypercapnia; J86.9 Pyothorax without fistula; G92 Toxic encephalopathy; S27.1XXA Traumatic hemothorax, initial encounter; S22.43XA Multiple fractures of ribs, bilateral, initial encounter for closed fracture; G82.20 Paraplegia, unspecified; D64.9 Anemia, unspecified; E11.9 Type 2 diabetes mellitus without complications; F99 Mental disorder, not otherwise specified; X58.XXXA Exposure to other specified factors, initial encounter; E78.5 Hyperlipidemia, unspecified; G40.909 Epilepsy, unspecified, not intractable, without status epilepticus; I10 Essential (primary) hypertension; Z79.84 Long term (current) use of oral hypoglycemic drugs; Z91.011 Allergy to milk products; Z79.899 Other long term (current) drug therapy; Y93.89 Activity, other specified; Z78.1 Physical restraint status; Y92.89 Other specified places as the place of occurrence of the external cause; Y99.8 Other external cause status; Z91.19 Patient's noncompliance with other medical treatment and regimen
CPT/HCPCS: 36415; 36569; 71045; 71250; 76604; 76937; 80048; 80061; 80305; 82550; 82607; 82728; 82962; 83036; 83540; 83550; 83605; 84145; 84443; 87077; 87186; 87389; 93005; 96365; 96367; 96368; 96375; 99291; C1725; J0456; J0692; J1630; J2543; J3370; J3490; J7030; J7050; J7060

== ENCOUNTER 2019-02-20 19:12 | Inpatient (IN) | payer MEDICAID ==
[~2019-02-20] VITALS: Ht 182.9 cm; Wt 97.1 kg
[2019-02-20] MEDS ORDERED: SODIUM CHLORIDE 0.9% 1,000 ML IV ONE (19:57)
[2019-02-20] MEDS ORDERED: LEVETIRACETAM 1000MG/100ML 100 ML IV ONE (20:00)
[2019-02-20] MEDS ORDERED: ALBUTEROL (0.5%) 2.5MG/0.5ML NEB HHN ONE (21:15)
[2019-02-20] MEDS ORDERED: IPRATROPIUM BROMIDE (0.02%) 0.5MG/2.5ML NEB HHN ONE (21:15)
[2019-02-20 21:23] LABS: CHLORIDE 104 mEq/L (98-107)
[2019-02-20 21:27] LABS: ETHANOL BLOOD < 10 mg/dL
[2019-02-20 21:30] LABS: BASOPHILS % 0.5 % (0.0-2.0); EOSINOPHILS % 0.6 % (0.0-5.0); HEMATOCRIT. 35.6 % (42.0-52.0); HEMOGLOBIN. 11.7 g/dL (14.0-18.0); LYMPHOCYTES % 8.1 % (20.0-50.0); MEAN CORPUSCULAR HEMOGLOBIN 30.3 pg (28.0-32.0); MEAN CORPUSCULAR VOLUME 91.9 fL (80.0-94.0); MEAN PLATELET VOLUME 9.1 fl (7.4-10.4); MONOCYTES % 11.3 % (2.0-8.0); NEUTROPHILS % 79.5 % (40.0-76.0); PLATELET 620 x1000/uL (130-400); RED BLOOD CELL COUNT 3.88 mill/uL (4.7-6.1); RED CELL DISTRIBUTION WIDTH 15.4 % (11.6-14.6)
[2019-02-20] MEDS ORDERED: SODIUM CHLORIDE 0.9% 1000ML BAG (SEPSIS BOLUS) IV ONE (23:15)
[2019-02-20] MEDS ORDERED: VANCOMYCIN 1 G PREMIX 200 ML IV ONE (23:15)
[2019-02-20] MEDS ORDERED: PIPERACILLIN/TAZ 3.375G PREMIX 50 ML IV ONE (23:15)
[2019-02-21] VITALS (18 sets, daily range): BP systolic 143–243; BP diastolic 72–162
[2019-02-21] MEDS ORDERED: LORAZEPAM 2MG/ML CPJ IV ONE ×4 (00:15→09:30)
[2019-02-21] MEDS ORDERED: HALOPERIDOL LACTATE 5MG/ML VIAL IM ONE ×2 (00:15→01:45)
[2019-02-21] MEDS ORDERED: DIPHENHYDRAMINE 50MG/ML VIAL IV ONE (01:45)
[2019-02-21 01:57] LABS: CLARITY URINE CLEAR (CLEAR); COLOR URINE DARK YELLOW (YELLOW); KETONES URINE NEGATIVE (NEGATIVE); LEUKOCYTE ESTERASE URINE NEGATIVE (NEGATIVE); NITRITE URINE NEGATIVE (NEGATIVE); OCCULT BLOOD URINE NEGATIVE (NEGATIVE); PROTEIN URINE 1+ (NEGATIVE); SPECIFIC GRAVITY URINE 1.029 (1.005-1.030); UROBILINOGEN URINE 0.2 E.U./dL (0.2-1.0)
[2019-02-21] MEDS ORDERED: KETAMINE HCL 50 MG/ML 10ML IV ONE (02:15)
[2019-02-21 02:18] LABS: *AMPHETAMINES SCREEN URINE NEGATIVE (NEGATIVE); *BARBITURATES SCREEN URINE NEGATIVE (NEGATIVE); *BENZODIAZEPINES SCREEN URINE NEGATIVE (NEGATIVE); *COCAINE SCREEN URINE NEGATIVE (NEGATIVE); METHADONE URINE SCREEN NEGATIVE (NEGATIVE); OPIATES URINE SCREEN PRESUMTIVE POSITIVE (NEGATIVE); PHENCYCLIDINE URINE SCREEN NEGATIVE (NEGATIVE)
[2019-02-21 02:19] LABS: CANNABINOID URINE SCREEN PRESUMTIVE POSITIVE (NEGATIVE)
[2019-02-21] MEDS ORDERED: ETOMIDATE 2MG/ML 10ML VIAL IV ONE ×2 (02:30→02:50)
[2019-02-21] MEDS ORDERED: LORAZEPAM 2MG/ML CPJ ONE (02:56)
[2019-02-21] MEDS ORDERED: VANCOMYCIN 1 G PREMIX 200 ML IV SCH ×2 (06:41→09:00)
[2019-02-21] MEDS ORDERED: PIPERACILLIN/TAZ 3.375G PREMIX 50 ML IV ONE (06:45)
[2019-02-21] MEDS ORDERED: LEVETIRACETAM 1000MG/100ML 100 ML IV ONE (08:00)
[2019-02-21] MEDS ORDERED: LIDOCAINE HCL 1% 20ML VIAL (Pyxis) INJ ONE (08:25)
[2019-02-21] MEDS ORDERED: DIPHENHYDRAMINE 50MG/ML VIAL IV PRN ×2 (09:00→10:00)
[2019-02-21] MEDS ORDERED: IPRATROPIUM/ALBUTEROL 0.5-3(2.5)MG/3ML NEB INH PRN (09:00)
[2019-02-21] MEDS ORDERED: MAGNESIUM/ALUMINUM HYDROXIDE/SIMETHICONE 30ML UDC PO PRN (09:00)
[2019-02-21] MEDS ORDERED: HYDROCODONE/ACETAMINOPHEN 5/325MG TABLET PO PRN (09:00)
[2019-02-21] MEDS ORDERED: DOCUSATE SODIUM 100MG CAPSULE PO PRN (09:00)
[2019-02-21] MEDS ORDERED: HALOPERIDOL LACTATE 5MG/ML VIAL IM NR (10:00)
[2019-02-21] MEDS ORDERED: LORAZEPAM 2MG/ML CPJ IV PRN (10:00)
[2019-02-21 10:06] LABS: PHOSPHORUS 3.3 mg/dL (2.5-4.9)
[2019-02-21] MEDS: DEXT 5%/0.9% NACL 1,000 ML IV SCH ×2 (12:29→21:15)
[2019-02-21] MEDS: FAMOTIDINE 20MG/2ML VIAL IV SCH (13:15)
[2019-02-21] MEDS: PIPERACILLIN/TAZ 3.375G PREMIX 50 ML IV SCH ×2 (13:42→19:25)
[2019-02-21] MEDS: VANCOMYCIN 1500MG in DEXTROSE 5% WATER 250ML IV SCH ×2 (14:28→22:51)
[2019-02-21] MEDS: HYDRALAZINE 20MG/ML VIAL IV PRN (14:29)
[2019-02-21] MEDS: DIPHENHYDRAMINE 50MG/ML VIAL IV PRN (16:14)
[2019-02-21 18:06] LABS: CREATINE KINASE MB FRACTION 1.9 ng/mL (0.5-3.6)
[2019-02-21] MEDS ORDERED: ACETAMINOPHEN 650MG SUPP PR PRN (20:15)
[2019-02-21] MEDS: MORPHINE SULFATE 2 MG/ML CPJ (NOT FOR IM USE) IV PRN (20:18)
[2019-02-21] MEDS: ACETAMINOPHEN 325MG TABLET PO PRN (20:18)
[2019-02-21] MEDS: LEVETIRACETAM 500 MG in SODIUM CHLORIDE 0.9% 100 ML IV SCH (21:15)
[2019-02-22] VITALS (55 sets, daily range): BP systolic 126–224; BP diastolic 53–220
[2019-02-22 00:21] LABS: CREATINE KINASE MB FRACTION 1.6 ng/mL (0.5-3.6)
[2019-02-22] MEDS: DIPHENHYDRAMINE 50MG/ML VIAL IV PRN ×2 (01:30→12:50)
[2019-02-22] MEDS: PIPERACILLIN/TAZ 3.375G PREMIX 50 ML IV SCH ×4 (01:49→20:25)
[2019-02-22] MEDS: MORPHINE SULFATE 2 MG/ML CPJ (NOT FOR IM USE) IV PRN ×4 (02:59→16:57)
[2019-02-22] MEDS: VANCOMYCIN 1500MG in DEXTROSE 5% WATER 250ML IV SCH ×3 (06:00→22:58)
[2019-02-22] MEDS: LORAZEPAM 2MG/ML CPJ IV PRN ×2 (06:04→11:26)
[2019-02-22 06:08] LABS: HEMOGLOBIN. 10.5 g/dL (14.0-18.0); MEAN CORPUSCULAR VOLUME 91.7 fL (80.0-94.0); RED BLOOD CELL COUNT 3.38 mill/uL (4.7-6.1); RED CELL DISTRIBUTION WIDTH 15.1 % (11.6-14.6)
[2019-02-22 06:33] LABS: CHLORIDE 108 mEq/L (98-107)
[2019-02-22 06:40] LABS: LDL CHOLESTEROL 85 mg/dL (5-100)
[2019-02-22 06:42] LABS: HDL CHOLESTEROL 42 mg/dL (40-59)
[2019-02-22] MEDS: DEXT 5%/0.9% NACL 1,000 ML IV SCH ×2 (07:42→18:05)
[2019-02-22] MEDS: FAMOTIDINE 20MG/2ML VIAL IV SCH (08:16)
[2019-02-22 09:03] LABS: INR 1.2; PARTIAL THROMBOPLASTIN TIME 37.1 sec (23.4-31.0); PROTHROMBIN TIME 12.2 sec (9.6-11.0)
[2019-02-22] MEDS: LEVETIRACETAM 500 MG in SODIUM CHLORIDE 0.9% 100 ML IV SCH ×2 (09:52→20:56)
[2019-02-22] MEDS ORDERED: TALC 3 GM VIAL IX SCH ×2 (10:15)
[2019-02-22] MEDS ORDERED: TETRACAINE/BENZOCAINE/BUTAMBEN 20 GM SPRAY MM ONE (10:25)
[2019-02-22 10:29] LABS: ATYPICAL LYMPHOCYTES 1; PLATELET ESTIMATE INCREASED
[2019-02-22 10:30] LABS: PLATELET 483 x1000/uL (130-400)
[2019-02-22] MEDS ORDERED: BUPIVACAINE/EPINEPH/PF 0.25%/0.0005 10ML ONE (10:49)
[2019-02-22] MEDS ORDERED: BACITRACIN 50,000 UNITS/VIAL ONE (10:50)
[2019-02-22] MEDS ORDERED: NORMAL SALINE 0.9% 10 ML SYR ONE (10:50)
[2019-02-22] MEDS: HYDRALAZINE 20MG/ML VIAL IV PRN ×2 (12:17→19:46)
[2019-02-22] MEDS ORDERED: FENTANYL CITRATE/PF 50MCG/ML 5ML VIAL ONE (13:42)
[2019-02-22] MEDS ORDERED: PROPOFOL 200MG/20ML VIAL IV ONE (13:42)
[2019-02-22] MEDS ORDERED: ROCURONIUM BROMIDE 10MG/ML VIAL 5ML IV ONE ×2 (13:42→15:51)
[2019-02-22] MEDS ORDERED: MIDAZOLAM HCL 2 MG/2 ML VIAL ONE (13:44)
[2019-02-22] MEDS ORDERED: LABETALOL HCL 5MG/ML VIAL 20ML IV ONE ×2 (15:30→15:51)
[2019-02-22] MEDS: PROPOFOL 10MG/ML 100ML 100 ML IV PRN ×3 (16:58→22:33)
[2019-02-22 17:00] LABS: BG BASE EXCESS -3.8 mmol/L (-2.0-2.0); BG CARBOXYHEMOGLOBIN 0.7 % (0.5-1.5); BG DEOXYHEMOGLOBIN 1.4 % (0.0-5.0); BG FRACTION INSPIRED OXYGEN 100; BG HCO3 ACT 20.8 mmol/L (22.0-26.0); BG METHEMOGLOBIN 0.2 % (0.0-1.5); BG OXYGEN SATURATION 98.6 % (92.0-98.5); BG OXYHEMOGLOBIN 97.7 % (94.0-97.0); BG PCO2 36.5 mmHg (35.0-45.0); BG PH 7.374 (7.350-7.450); BG PO2 140.9 mmHg (75.0-100.0); BG SAMPLE SITE A-LINE; BG TIDAL VOLUME(mL) 500 mL; BG TOTAL HEMOGLOBIN 12.1 g/dL (12.0-18.0); BG VENT MODE VENT - A/C; BG VENT RATE 14 set
[2019-02-22 17:21] LABS: CHLORIDE 109 mEq/L (98-107)
[2019-02-22 17:23] LABS: HEMATOCRIT. 33.9 % (42.0-52.0); HEMOGLOBIN. 11.2 g/dL (14.0-18.0); MEAN CORPUSCULAR HEMOGLOBIN 30.1 pg (28.0-32.0); MEAN CORPUSCULAR VOLUME 90.8 fL (80.0-94.0); MEAN PLATELET VOLUME 8.4 fl (7.4-10.4); PLATELET 660 x1000/uL (130-400); RED BLOOD CELL COUNT 3.73 mill/uL (4.7-6.1); RED CELL DISTRIBUTION WIDTH 15.3 % (11.6-14.6)
[2019-02-22 17:50] LABS: PLATELET ESTIMATE INCREASED
[2019-02-22] MEDS: FENTANYL CITRATE/PF 500 MCG in SODIUM CHLORIDE 0.9% 40 ML IV PRN (18:06)
[2019-02-23] VITALS (96 sets, daily range): BP systolic 106–254; BP diastolic 53–114
[2019-02-23] MEDS: PROPOFOL 10MG/ML 100ML 100 ML IV PRN ×7 (02:01→21:51)
[2019-02-23] MEDS: PIPERACILLIN/TAZ 3.375G PREMIX 50 ML IV SCH ×4 (02:03→20:28)
[2019-02-23] MEDS: FENTANYL CITRATE/PF 500 MCG in SODIUM CHLORIDE 0.9% 40 ML IV PRN ×3 (02:33→21:53)
[2019-02-23 05:08] LABS: HEMATOCRIT. 30.3 % (42.0-52.0); HEMOGLOBIN. 10.2 g/dL (14.0-18.0); MEAN CORPUSCULAR HEMOGLOBIN 30.5 pg (28.0-32.0); MEAN CORPUSCULAR VOLUME 90.8 fL (80.0-94.0); MEAN PLATELET VOLUME 8.3 fl (7.4-10.4); PLATELET 638 x1000/uL (130-400); RED BLOOD CELL COUNT 3.34 mill/uL (4.7-6.1); RED CELL DISTRIBUTION WIDTH 15.6 % (11.6-14.6)
[2019-02-23] MEDS: DEXT 5%/0.9% NACL 1,000 ML IV SCH ×2 (05:15→15:40)
[2019-02-23 05:20] LABS: VANCOMYCIN TROUGH 45.7 ug/mL (5.0-10.0)
[2019-02-23] MEDS: VANCOMYCIN 1500MG in DEXTROSE 5% WATER 250ML IV SCH (06:23)
[2019-02-23 08:26] LABS: BG BASE EXCESS -5.1 mmol/L (-2.0-2.0); BG CARBOXYHEMOGLOBIN 0.3 % (0.5-1.5); BG DEOXYHEMOGLOBIN 1.4 % (0.0-5.0); BG FRACTION INSPIRED OXYGEN 55; BG HCO3 ACT 19.4 mmol/L (22.0-26.0); BG METHEMOGLOBIN 0.1 % (0.0-1.5); BG OXYGEN SATURATION 98.6 % (92.0-98.5); BG OXYHEMOGLOBIN 98.2 % (94.0-97.0); BG PCO2 33.8 mmHg (35.0-45.0); BG PH 7.376 (7.350-7.450); BG PO2 140.8 mmHg (75.0-100.0); BG SAMPLE SITE A-LINE; BG TIDAL VOLUME(mL) 500 mL; BG TOTAL HEMOGLOBIN 9.9 g/dL (12.0-18.0); BG VENT MODE VENT - A/C; BG VENT RATE 14 set
[2019-02-23] MEDS ORDERED: SODIUM CHLORIDE 0.9% 1000ML BAG (SEPSIS BOLUS) IV ONE (09:00)
[2019-02-23] MEDS: LEVETIRACETAM 500 MG in SODIUM CHLORIDE 0.9% 100 ML IV SCH ×2 (09:21→20:29)
[2019-02-23] MEDS: FAMOTIDINE 20MG/2ML VIAL IV SCH (09:21)
[2019-02-23 10:12] LABS: PLATELET ESTIMATE INCREASED
[2019-02-23 10:31] LABS: CLARITY URINE TURBID (CLEAR); COLOR URINE YELLOW (YELLOW); KETONES URINE NEGATIVE (NEGATIVE); LEUKOCYTE ESTERASE URINE TRACE (NEGATIVE); NITRITE URINE NEGATIVE (NEGATIVE); OCCULT BLOOD URINE 2+ (NEGATIVE); PH URINE 5.5 (4.5-8.0); PROTEIN URINE 2+ (NEGATIVE); SPECIFIC GRAVITY URINE 1.008 (1.005-1.030); UROBILINOGEN URINE 0.2 E.U./dL (0.2-1.0)
[2019-02-23] MEDS: QUETIAPINE FUMARATE 25MG TABLET PO SCH ×2 (11:58→20:30)
[2019-02-23] MEDS: LORAZEPAM 2MG/ML CPJ IV PRN (11:58)
[2019-02-23] MEDS: ACETYLCYSTEINE 100MG/ML 10% VIAL 4ML INH SCH ×2 (12:14→15:44)
[2019-02-23] MEDS: IPRATROPIUM/ALBUTEROL 0.5-3(2.5)MG/3ML NEB HHN SCH ×3 (12:14→20:18)
[2019-02-23] MEDS ORDERED: QUETIAPINE FUMARATE 25MG TABLET PO SCH (21:00)
[2019-02-24] VITALS (71 sets, daily range): BP systolic 118–174; BP diastolic 64–120
[2019-02-24] MEDS: DEXT 5%/0.9% NACL 1,000 ML IV SCH ×2 (00:07→13:11)
[2019-02-24] MEDS: ACETYLCYSTEINE 100MG/ML 10% VIAL 4ML INH SCH ×3 (00:18→16:50)
[2019-02-24] MEDS: IPRATROPIUM/ALBUTEROL 0.5-3(2.5)MG/3ML NEB HHN SCH ×6 (00:18→19:52)
[2019-02-24] MEDS: PROPOFOL 10MG/ML 100ML 100 ML IV PRN ×7 (01:22→23:36)
[2019-02-24] MEDS: PIPERACILLIN/TAZ 3.375G PREMIX 50 ML IV SCH ×2 (01:57→09:20)
[2019-02-24] MEDS: DOXYCYCLINE 100 MG in DEXT 5% WATER 100 ML IV SCH ×2 (03:21→12:14)
[2019-02-24 05:26] LABS: HEMOGLOBIN. 9.4 g/dL (14.0-18.0); MEAN CORPUSCULAR HEMOGLOBIN 30.4 pg (28.0-32.0); MEAN CORPUSCULAR VOLUME 93.4 fL (80.0-94.0); MEAN PLATELET VOLUME 8.6 fl (7.4-10.4); PLATELET 501 x1000/uL (130-400); RED CELL DISTRIBUTION WIDTH 15.5 % (11.6-14.6)
[2019-02-24] MEDS: FENTANYL CITRATE/PF 500 MCG in SODIUM CHLORIDE 0.9% 40 ML IV PRN ×4 (06:00→23:43)
[2019-02-24] MEDS: LORAZEPAM 2MG/ML CPJ IV PRN ×2 (06:23→09:19)
[2019-02-24 07:40] LABS: BG BASE EXCESS -9.6 mmol/L (-2.0-2.0); BG CARBOXYHEMOGLOBIN 0.2 % (0.5-1.5); BG DEOXYHEMOGLOBIN 3.6 % (0.0-5.0); BG HCO3 ACT 15.3 mmol/L (22.0-26.0); BG METHEMOGLOBIN 0.3 % (0.0-1.5); BG OXYGEN SATURATION 96.4 % (92.0-98.5); BG OXYHEMOGLOBIN 95.9 % (94.0-97.0); BG PH 7.326 (7.350-7.450); BG PO2 87.7 mmHg (75.0-100.0); BG SAMPLE SITE RIGHT BRACHIAL; BG TIDAL VOLUME(mL) 500 mL; BG TOTAL HEMOGLOBIN 9.7 g/dL (12.0-18.0); BG VENT MODE VENT - A/C; BG VENT RATE 14 set
[2019-02-24] MEDS: CLONIDINE 0.1MG TABLET PO PRN (09:19)
[2019-02-24] MEDS: FAMOTIDINE 20MG/2ML VIAL IV SCH (09:19)
[2019-02-24] MEDS: LEVETIRACETAM 500 MG in SODIUM CHLORIDE 0.9% 100 ML IV SCH ×2 (09:20→21:10)
[2019-02-24 10:44] LABS: PLATELET ESTIMATE INCREASED
[2019-02-24] MEDS: QUETIAPINE FUMARATE 25MG TABLET PO SCH ×2 (12:31→21:11)
[2019-02-24] MEDS ORDERED: PIPERACILLIN/TAZ 2.25G PREMIX 50 ML IV SCH (16:00)
[2019-02-24] MEDS ORDERED: SODIUM BICARBONATE 100 MEQ in DEXTROSE 5% WATER 1,000 ML IV SCH (17:30)
[2019-02-24] MEDS: PIPERACILLIN/TAZ 2.25G PREMIX 50 ML IV SCH ×2 (19:00→21:10)
[2019-02-24] MEDS: BLOOD SUGAR DIAGNOSTIC STRIP TEST SCH (21:35)
[2019-02-25] VITALS (59 sets, daily range): BP systolic 123–157; BP diastolic 62–103
[2019-02-25] MEDS: PIPERACILLIN/TAZ 2.25G PREMIX 50 ML IV SCH ×4 (00:04→18:28)
[2019-02-25] MEDS: ACETYLCYSTEINE 100MG/ML 10% VIAL 4ML INH SCH ×3 (00:06→16:02)
[2019-02-25] MEDS: IPRATROPIUM/ALBUTEROL 0.5-3(2.5)MG/3ML NEB HHN SCH ×6 (00:07→20:07)
[2019-02-25] MEDS: DOXYCYCLINE 100 MG in DEXT 5% WATER 100 ML IV SCH ×2 (01:03→12:30)
[2019-02-25] MEDS: PROPOFOL 10MG/ML 100ML 100 ML IV PRN ×7 (02:42→23:51)
[2019-02-25] MEDS: LORAZEPAM 2MG/ML CPJ IV PRN ×3 (02:42→21:41)
[2019-02-25] MEDS: FENTANYL CITRATE/PF 500 MCG in SODIUM CHLORIDE 0.9% 40 ML IV PRN ×4 (05:22→22:24)
[2019-02-25 07:16] LABS: BG BASE EXCESS -9.6 mmol/L (-2.0-2.0); BG DEOXYHEMOGLOBIN 2.6 % (0.0-5.0); BG HCO3 ACT 16.4 mmol/L (22.0-26.0); BG METHEMOGLOBIN 0.3 % (0.0-1.5); BG OXYGEN SATURATION 97.4 % (92.0-98.5); BG OXYHEMOGLOBIN 97.1 % (94.0-97.0); BG PCO2 36.3 mmHg (35.0-45.0); BG PH 7.274 (7.350-7.450); BG PO2 106.2 mmHg (75.0-100.0); BG SAMPLE SITE RIGHT BRACHIAL; BG TIDAL VOLUME(mL) 500 mL; BG TOTAL HEMOGLOBIN 9.3 g/dL (12.0-18.0); BG VENT MODE VENT - A/C; BG VENT RATE 14 set
[2019-02-25] MEDS: BLOOD SUGAR DIAGNOSTIC STRIP TEST SCH ×4 (08:40→20:48)
[2019-02-25] MEDS: FAMOTIDINE 20MG/2ML VIAL IV SCH (08:54)
[2019-02-25] MEDS: LEVETIRACETAM 500 MG in SODIUM CHLORIDE 0.9% 100 ML IV SCH ×2 (08:54→20:48)
[2019-02-25] MEDS: QUETIAPINE FUMARATE 25MG TABLET PO SCH (08:54)
[2019-02-25 09:24] LABS: HEMATOCRIT. 25.8 % (42.0-52.0); HEMOGLOBIN. 8.4 g/dL (14.0-18.0); MEAN CORPUSCULAR HEMOGLOBIN 30.1 pg (28.0-32.0); MEAN CORPUSCULAR VOLUME 91.8 fL (80.0-94.0); MEAN PLATELET VOLUME 8.4 fl (7.4-10.4); PLATELET 506 x1000/uL (130-400); RED BLOOD CELL COUNT 2.81 mill/uL (4.7-6.1); RED CELL DISTRIBUTION WIDTH 15.5 % (11.6-14.6)
[2019-02-25] MEDS ORDERED: SODIUM BICARBONATE 8.4% 1 MEQ/ML 50ML SYR IV SCH (09:30)
[2019-02-25] MEDS: SODIUM BICARBONATE 150 MEQ in DEXTROSE 5% WATER 850 ML IV SCH (12:29)
[2019-02-25] MEDS ORDERED: FLUC100T42 PO (13:10)
[2019-02-25] MEDS ORDERED: FAMO20TA8 PO (13:10)
[2019-02-25] MEDS ORDERED: FOLI-43 MT (13:10)
[2019-02-25] MEDS ORDERED: LISI10TA5 MT (13:10)
[2019-02-25] MEDS ORDERED: AMLO2.5T45 MT (13:10)
[2019-02-25 14:14] LABS: PLATELET ESTIMATE INCREASED
[2019-02-25] MEDS: QUETIAPINE FUMARATE 50MG TABLET PO SCH (20:47)
[2019-02-26] VITALS (91 sets, daily range): BP systolic 130–186; BP diastolic 66–120
[2019-02-26] MEDS: PIPERACILLIN/TAZ 2.25G PREMIX 50 ML IV SCH ×4 (00:01→20:44)
[2019-02-26] MEDS: IPRATROPIUM/ALBUTEROL 0.5-3(2.5)MG/3ML NEB HHN SCH ×7 (00:24→23:54)
[2019-02-26] MEDS: ACETYLCYSTEINE 100MG/ML 10% VIAL 4ML INH SCH ×4 (00:24→23:54)
[2019-02-26] MEDS: DOXYCYCLINE 100 MG in DEXT 5% WATER 100 ML IV SCH ×2 (01:24→13:48)
[2019-02-26] MEDS: SODIUM BICARBONATE 150 MEQ in DEXTROSE 5% WATER 850 ML IV SCH ×2 (01:24→13:50)
[2019-02-26] MEDS: PROPOFOL 10MG/ML 100ML 100 ML IV PRN ×7 (02:57→21:21)
[2019-02-26] MEDS: FENTANYL CITRATE/PF 500 MCG in SODIUM CHLORIDE 0.9% 40 ML IV PRN (03:55)
[2019-02-26 06:32] LABS: HEMATOCRIT. 23.7 % (42.0-52.0); MEAN CORPUSCULAR HEMOGLOBIN 30.6 pg (28.0-32.0); MEAN CORPUSCULAR VOLUME 90.5 fL (80.0-94.0); MEAN PLATELET VOLUME 8.3 fl (7.4-10.4); PLATELET 484 x1000/uL (130-400); RED BLOOD CELL COUNT 2.62 mill/uL (4.7-6.1); RED CELL DISTRIBUTION WIDTH 15.2 % (11.6-14.6)
[2019-02-26] MEDS: FAMOTIDINE 20MG/2ML VIAL IV SCH (08:15)
[2019-02-26] MEDS: LEVETIRACETAM 500 MG in SODIUM CHLORIDE 0.9% 100 ML IV SCH ×2 (08:15→20:44)
[2019-02-26] MEDS: QUETIAPINE FUMARATE 50MG TABLET PO SCH ×2 (08:15→20:44)
[2019-02-26 08:30] LABS: PLATELET ESTIMATE INCREAS
[2019-02-26 08:45] LABS: BG BASE EXCESS -6.1 mmol/L (-2.0-2.0); BG CARBOXYHEMOGLOBIN 0.2 % (0.5-1.5); BG FRACTION INSPIRED OXYGEN 40; BG HCO3 ACT 19.6 mmol/L (22.0-26.0); BG METHEMOGLOBIN 0.4 % (0.0-1.5); BG OXYHEMOGLOBIN 96.4 % (94.0-97.0); BG PCO2 39.8 mmHg (35.0-45.0); BG PH 7.311 (7.350-7.450); BG PO2 100.7 mmHg (75.0-100.0); BG SAMPLE SITE RIGHT BRACHIAL; BG TIDAL VOLUME(mL) 500 mL; BG TOTAL HEMOGLOBIN 8.9 g/dL (12.0-18.0); BG VENT MODE VENT - A/C; BG VENT RATE 18 set
[2019-02-26] MEDS ORDERED: LACTULOSE 20G/30ML UDC NG ONE (10:15)
[2019-02-26] MEDS: FENTANYL CITRATE/PF 1,000 MCG in SODIUM CHLORIDE 0.9% 80 ML IV PRN ×2 (10:17→19:26)
[2019-02-26] MEDS ORDERED: DOCUSATE SODIUM SUGAR FREE 100MG/10ML UDC NG PRN (11:15)
[2019-02-26] MEDS ORDERED: BISACODYL 10MG SUPP PR NR (11:30)
[2019-02-26] MEDS: BLOOD SUGAR DIAGNOSTIC STRIP TEST SCH ×2 (12:00→17:40)
[2019-02-26] MEDS ORDERED: FUROSEMIDE 40MG/4ML VIAL IVP NR (12:00)
[2019-02-26] MEDS: DOCUSATE SODIUM SUGAR FREE 100MG/10ML UDC NG SCH (13:48)
[2019-02-26] MEDS ORDERED: DOCUSATE SODIUM SUGAR FREE 100MG/10ML UDC NG SCH (17:00)
[2019-02-26] MEDS: LORAZEPAM 2MG/ML CPJ IV PRN (17:08)
[2019-02-26] MEDS: ACETAMINOPHEN 325MG TABLET PO PRN (17:36)
[2019-02-26] MEDS ORDERED: HEPARIN SODIUM 1,000 UNIT/1ML VIAL IV NR (18:00)
[2019-02-26] MEDS: HYDRALAZINE 20MG/ML VIAL IV PRN (21:26)
[2019-02-26] MEDS: CLONIDINE 0.1MG TABLET PO PRN (23:08)
[2019-02-27] VITALS (90 sets, daily range): BP systolic 135–187; BP diastolic 65–101
[2019-02-27] MEDS: BLOOD SUGAR DIAGNOSTIC STRIP TEST SCH ×4 (00:22→17:37)
[2019-02-27] MEDS: DOXYCYCLINE 100 MG in DEXT 5% WATER 100 ML IV SCH ×2 (00:26→13:14)
[2019-02-27] MEDS: PROPOFOL 10MG/ML 100ML 100 ML IV PRN ×6 (00:31→20:35)
[2019-02-27] MEDS: PIPERACILLIN/TAZ 2.25G PREMIX 50 ML IV SCH ×5 (01:35→20:33)
[2019-02-27] MEDS: IPRATROPIUM/ALBUTEROL 0.5-3(2.5)MG/3ML NEB HHN SCH ×5 (04:01→20:18)
[2019-02-27] MEDS: SODIUM BICARBONATE 150 MEQ in DEXTROSE 5% WATER 850 ML IV SCH (05:06)
[2019-02-27 05:40] LABS: HEMATOCRIT. 21.2 % (42.0-52.0); HEMOGLOBIN. 7.2 g/dL (14.0-18.0); MEAN CORPUSCULAR HEMOGLOBIN 30.1 pg (28.0-32.0); MEAN CORPUSCULAR VOLUME 88.8 fL (80.0-94.0); MEAN PLATELET VOLUME 8.1 fl (7.4-10.4); PLATELET 384 x1000/uL (130-400); RED BLOOD CELL COUNT 2.39 mill/uL (4.7-6.1); RED CELL DISTRIBUTION WIDTH 14.9 % (11.6-14.6)
[2019-02-27] MEDS: FENTANYL CITRATE/PF 1,000 MCG in SODIUM CHLORIDE 0.9% 80 ML IV PRN ×2 (06:28→17:22)
[2019-02-27 07:35] LABS: BG BASE EXCESS 1.4 mmol/L (-2.0-2.0); BG CARBOXYHEMOGLOBIN 0.5 % (0.5-1.5); BG DEOXYHEMOGLOBIN 2.5 % (0.0-5.0); BG HCO3 ACT 25.4 mmol/L (22.0-26.0); BG METHEMOGLOBIN 0.2 % (0.0-1.5); BG OXYGEN SATURATION 97.5 % (92.0-98.5); BG OXYHEMOGLOBIN 96.8 % (94.0-97.0); BG PCO2 37.4 mmHg (35.0-45.0); BG PO2 105.2 mmHg (75.0-100.0); BG SAMPLE SITE RIGHT RADIAL; BG TIDAL VOLUME(mL) 500 mL; BG TOTAL HEMOGLOBIN 7.5 g/dL (12.0-18.0); BG VENT MODE VENT - A/C; BG VENT RATE 18 set
[2019-02-27] MEDS: ACETYLCYSTEINE 100MG/ML 10% VIAL 4ML INH SCH ×2 (07:40→15:28)
[2019-02-27] MEDS: HYDRALAZINE 20MG/ML VIAL IV PRN (09:17)
[2019-02-27] MEDS: QUETIAPINE FUMARATE 50MG TABLET PO SCH ×2 (09:21→20:55)
[2019-02-27] MEDS: DOCUSATE SODIUM SUGAR FREE 100MG/10ML UDC NG SCH (09:21)
[2019-02-27] MEDS: LEVETIRACETAM 500 MG in SODIUM CHLORIDE 0.9% 100 ML IV SCH ×2 (09:21→20:55)
[2019-02-27] MEDS: FAMOTIDINE 20MG/2ML VIAL IV SCH (09:21)
[2019-02-27] MEDS: FUROSEMIDE 100MG/10ML VIAL IVP SCH (13:16)
[2019-02-27 14:00] LABS: PLATELET ESTIMATE NORMAL
[2019-02-27] MEDS: LORAZEPAM 2MG/ML CPJ IV PRN (16:19)
[2019-02-27] MEDS: EPOETIN ALFA 10000UNITS/ML VIAL SUBCUT SCH (22:01)
[2019-02-28] VITALS (86 sets, daily range): BP systolic 112–217; BP diastolic 70–134
[2019-02-28] MEDS: BLOOD SUGAR DIAGNOSTIC STRIP TEST SCH ×5 (00:03→23:56)
[2019-02-28] MEDS: IPRATROPIUM/ALBUTEROL 0.5-3(2.5)MG/3ML NEB HHN SCH ×7 (00:09→23:50)
[2019-02-28] MEDS: ACETYLCYSTEINE 100MG/ML 10% VIAL 4ML INH SCH ×2 (00:10→07:41)
[2019-02-28] MEDS: DOXYCYCLINE 100 MG in DEXT 5% WATER 100 ML IV SCH ×2 (00:46→12:57)
[2019-02-28] MEDS: FENTANYL CITRATE/PF 1,000 MCG in SODIUM CHLORIDE 0.9% 80 ML IV PRN (01:12)
[2019-02-28] MEDS: PROPOFOL 10MG/ML 100ML 100 ML IV PRN ×2 (01:30→05:32)
[2019-02-28] MEDS: PIPERACILLIN/TAZ 2.25G PREMIX 50 ML IV SCH ×4 (01:34→21:55)
[2019-02-28] MEDS: HYDRALAZINE 20MG/ML VIAL IV PRN ×3 (02:48→19:37)
[2019-02-28] MEDS: CLONIDINE 0.1MG TABLET PO PRN (03:22)
[2019-02-28 06:11] LABS: MEAN CORPUSCULAR HEMOGLOBIN 31.6 pg (28.0-32.0); MEAN CORPUSCULAR VOLUME 89.5 fL (80.0-94.0); MEAN PLATELET VOLUME 8.5 fl (7.4-10.4); PLATELET 338 x1000/uL (130-400); RED CELL DISTRIBUTION WIDTH 15.1 % (11.6-14.6)
[2019-02-28 06:44] LABS: HEMATOCRIT. 20.5 % (42.0-52.0); HEMOGLOBIN. 7.3 g/dL (14.0-18.0)
[2019-02-28] MEDS: FAMOTIDINE 20MG/2ML VIAL IV SCH (08:26)
[2019-02-28] MEDS: QUETIAPINE FUMARATE 50MG TABLET PO SCH ×2 (08:26→20:41)
[2019-02-28] MEDS: DOCUSATE SODIUM SUGAR FREE 100MG/10ML UDC NG SCH (08:26)
[2019-02-28] MEDS: FUROSEMIDE 100MG/10ML VIAL IVP SCH (08:26)
[2019-02-28 08:48] LABS: PLATELET ESTIMATE NORMAL
[2019-02-28 09:00] LABS: BG BASE EXCESS 1.7 mmol/L (-2.0-2.0); BG CARBOXYHEMOGLOBIN 0.3 % (0.5-1.5); BG DEOXYHEMOGLOBIN 2.9 % (0.0-5.0); BG FRACTION INSPIRED OXYGEN 35; BG HCO3 ACT 25.1 mmol/L (22.0-26.0); BG METHEMOGLOBIN 0.2 % (0.0-1.5); BG OXYGEN SATURATION 97.1 % (92.0-98.5); BG OXYHEMOGLOBIN 96.6 % (94.0-97.0); BG PCO2 34.2 mmHg (35.0-45.0); BG PH 7.484 (7.350-7.450); BG PO2 92.9 mmHg (75.0-100.0); BG SAMPLE SITE RIGHT RADIAL; BG TIDAL VOLUME(mL) 500 mL; BG TOTAL HEMOGLOBIN 8.2 g/dL (12.0-18.0); BG VENT MODE VENT - A/C; BG VENT RATE 18 set
[2019-02-28] MEDS: LEVETIRACETAM 500 MG in SODIUM CHLORIDE 0.9% 100 ML IV SCH ×2 (10:00→20:40)
[2019-02-28] MEDS ORDERED: HALOPERIDOL LACTATE 5MG/ML VIAL IM ONE (10:29)
[2019-02-28] MEDS ORDERED: HALOPERIDOL LACTATE 5MG/ML VIAL IM SCH ×2 (10:30)
[2019-02-28] MEDS: LORAZEPAM 2MG/ML CPJ IV PRN ×3 (10:43→20:40)
[2019-02-28] MEDS: NICARDIPINE 50 MG in SODIUM CHLORIDE 0.9% 230 ML IV PRN ×2 (13:55→18:32)
[2019-02-28] MEDS ORDERED: CLONIDINE HCL 0.2MG/24HR PATCH TD SCH (14:00)
[2019-02-28] MEDS: MORPHINE SULFATE 4 MG/ML CPJ (NOT FOR IM USE) IV PRN ×2 (14:52→22:19)
[2019-02-28] MEDS ORDERED: HEPARIN SODIUM 1,000 UNIT/1ML VIAL IV ONE (16:30)
[2019-02-28] MEDS: DIPHENHYDRAMINE 50MG/ML VIAL IV PRN (19:37)
[2019-02-28] MEDS: ENALAPRIL 1.25MG/ML VIAL 1ML IV SCH (22:01)
[2019-02-28] MEDS: DEXT 5%/0.45% NACL 1000ML 1,000 ML IV SCH (22:15)
[2019-02-28] MEDS: NICARDIPINE IV PRN (22:28)
[2019-02-28] MEDS: SODIUM CHLORIDE 0.9% IV PRN (22:28)
[2019-02-28] MEDS: HALOPERIDOL LACTATE 5MG/ML VIAL IM PRN (23:43)
[2019-03-01] VITALS (95 sets, daily range): BP systolic 130–187; BP diastolic 57–130
[2019-03-01] MEDS ORDERED: ENALAPRIL 1.25MG/ML VIAL 1ML IV SCH
[2019-03-01] MEDS: DOXYCYCLINE 100 MG in DEXT 5% WATER 100 ML IV SCH ×2 (01:39→12:27)
[2019-03-01] MEDS: DIPHENHYDRAMINE 50MG/ML VIAL IV PRN ×2 (02:06→10:25)
[2019-03-01] MEDS: ONDANSETRON HCL 4MG/2ML INJ IV PRN (02:06)
[2019-03-01] MEDS: ENALAPRIL 1.25MG/ML VIAL 1ML IV SCH ×4 (04:06→21:42)
[2019-03-01] MEDS: MORPHINE SULFATE 4 MG/ML CPJ (NOT FOR IM USE) IV PRN ×4 (04:07→17:00)
[2019-03-01] MEDS: IPRATROPIUM/ALBUTEROL 0.5-3(2.5)MG/3ML NEB HHN SCH ×5 (04:12→20:57)
[2019-03-01] MEDS: NICARDIPINE IV PRN ×3 (04:56→18:56)
[2019-03-01] MEDS: SODIUM CHLORIDE 0.9% IV PRN ×3 (04:56→18:56)
[2019-03-01 05:50] LABS: BASOPHILS % 0.6 % (0.0-2.0); EOSINOPHILS % 0.6 % (0.0-5.0); HEMATOCRIT. 28.7 % (42.0-52.0); HEMOGLOBIN. 9.4 g/dL (14.0-18.0); LYMPHOCYTES % 7.5 % (20.0-50.0); MEAN CORPUSCULAR HEMOGLOBIN 29.3 pg (28.0-32.0); MEAN CORPUSCULAR VOLUME 89.2 fL (80.0-94.0); MEAN PLATELET VOLUME 8.3 fl (7.4-10.4); MONOCYTES % 13.2 % (2.0-8.0); NEUTROPHILS % 78.1 % (40.0-76.0); PLATELET 395 x1000/uL (130-400); RED BLOOD CELL COUNT 3.21 mill/uL (4.7-6.1); RED CELL DISTRIBUTION WIDTH 15.3 % (11.6-14.6)
[2019-03-01] MEDS: BLOOD SUGAR DIAGNOSTIC STRIP TEST SCH ×3 (05:55→18:39)
[2019-03-01] MEDS: PIPERACILLIN/TAZ 2.25G PREMIX 50 ML IV SCH ×3 (05:55→21:42)
[2019-03-01] MEDS: LORAZEPAM 2MG/ML CPJ IV PRN (06:37)
[2019-03-01] MEDS: FUROSEMIDE 100MG/10ML VIAL IVP SCH (08:57)
[2019-03-01] MEDS: FAMOTIDINE 20MG/2ML VIAL IV SCH (08:57)
[2019-03-01] MEDS: DOCUSATE SODIUM SUGAR FREE 100MG/10ML UDC NG SCH (08:57)
[2019-03-01] MEDS: LEVETIRACETAM 500 MG in SODIUM CHLORIDE 0.9% 100 ML IV SCH ×2 (08:57→20:59)
[2019-03-01] MEDS: QUETIAPINE FUMARATE 50MG TABLET PO SCH ×2 (08:58→20:33)
[2019-03-01] MEDS: HYDRALAZINE 20MG/ML VIAL IV PRN ×2 (10:26→15:49)
[2019-03-01] MEDS ORDERED: KCL 20MEQ/100ML PREMIX 100 ML IV NR (14:00)
[2019-03-01] MEDS: DEXT 5%/0.45% NACL 1000ML 1,000 ML IV SCH (17:01)
[2019-03-01] MEDS: EPOETIN ALFA 10000UNITS/ML VIAL SUBCUT SCH (21:42)
[2019-03-02] VITALS (67 sets, daily range): BP systolic 141–192; BP diastolic 64–123
[2019-03-02] MEDS: IPRATROPIUM/ALBUTEROL 0.5-3(2.5)MG/3ML NEB HHN SCH ×6 (00:57→20:08)
[2019-03-02] MEDS: SODIUM CHLORIDE 0.9% IV PRN (02:08)
[2019-03-02] MEDS: DOXYCYCLINE 100 MG in DEXT 5% WATER 100 ML IV SCH ×2 (02:08→13:39)
[2019-03-02] MEDS: NICARDIPINE IV PRN (02:08)
[2019-03-02] MEDS: BLOOD SUGAR DIAGNOSTIC STRIP TEST SCH ×5 (05:20→20:51)
[2019-03-02] MEDS: PIPERACILLIN/TAZ 2.25G PREMIX 50 ML IV SCH ×3 (05:20→21:17)
[2019-03-02 05:48] LABS: BASOPHILS % 1.1 % (0.0-2.0); EOSINOPHILS % 1.7 % (0.0-5.0); HEMATOCRIT. 28.5 % (42.0-52.0); HEMOGLOBIN. 9.5 g/dL (14.0-18.0); LYMPHOCYTES % 7.9 % (20.0-50.0); MEAN CORPUSCULAR HEMOGLOBIN 29.5 pg (28.0-32.0); MEAN CORPUSCULAR VOLUME 88.5 fL (80.0-94.0); MEAN PLATELET VOLUME 8.3 fl (7.4-10.4); MONOCYTES % 12.5 % (2.0-8.0); NEUTROPHILS % 76.8 % (40.0-76.0); PLATELET 378 x1000/uL (130-400); RED BLOOD CELL COUNT 3.22 mill/uL (4.7-6.1); RED CELL DISTRIBUTION WIDTH 15.7 % (11.6-14.6)
[2019-03-02] MEDS: LEVETIRACETAM 500 MG in SODIUM CHLORIDE 0.9% 100 ML IV SCH ×2 (10:08→20:38)
[2019-03-02] MEDS: FUROSEMIDE 100MG/10ML VIAL IVP SCH (10:08)
[2019-03-02] MEDS: FAMOTIDINE 20MG/2ML VIAL IV SCH (10:08)
[2019-03-02] MEDS: DOCUSATE SODIUM SUGAR FREE 100MG/10ML UDC NG SCH (10:09)
[2019-03-02] MEDS: ENALAPRIL 1.25MG/ML VIAL 1ML IV SCH ×4 (10:09→21:18)
[2019-03-02] MEDS: QUETIAPINE FUMARATE 50MG TABLET PO SCH ×2 (10:10→20:38)
[2019-03-02] MEDS: DEXT 5%/0.45% NACL 1000ML 1,000 ML IV SCH (13:39)
[2019-03-02] MEDS ORDERED: CLONIDINE 0.2MG TABLET PO SCH (14:00)
[2019-03-02] MEDS: MORPHINE SULFATE 4 MG/ML CPJ (NOT FOR IM USE) IV PRN ×2 (15:28→21:27)
[2019-03-02] MEDS: METOPROLOL TARTRATE 50MG TABLET PO SCH (20:39)
[2019-03-02] MEDS: AMLODIPINE 5MG TABLET PO SCH (20:39)
[2019-03-03] VITALS (41 sets, daily range): BP systolic 136–165; BP diastolic 74–101
[2019-03-03] MEDS: DOXYCYCLINE 100 MG in DEXT 5% WATER 100 ML IV SCH (00:13)
[2019-03-03] MEDS: IPRATROPIUM/ALBUTEROL 0.5-3(2.5)MG/3ML NEB HHN SCH ×6 (00:26→20:09)
[2019-03-03] MEDS: LORAZEPAM 2MG/ML CPJ IV PRN ×3 (02:13→17:24)
[2019-03-03] MEDS: ENALAPRIL 1.25MG/ML VIAL 1ML IV SCH (03:37)
[2019-03-03] MEDS: PIPERACILLIN/TAZ 2.25G PREMIX 50 ML IV SCH ×3 (05:12→22:19)
[2019-03-03 05:15] LABS: HEMATOCRIT. 24.2 % (42.0-52.0); HEMOGLOBIN. 8.3 g/dL (14.0-18.0); MEAN CORPUSCULAR HEMOGLOBIN 30.6 pg (28.0-32.0); MEAN PLATELET VOLUME 8.1 fl (7.4-10.4); PLATELET 305 x1000/uL (130-400); RED BLOOD CELL COUNT 2.73 mill/uL (4.7-6.1); RED CELL DISTRIBUTION WIDTH 15.9 % (11.6-14.6)
[2019-03-03] MEDS: BLOOD SUGAR DIAGNOSTIC STRIP TEST SCH ×4 (07:50→20:30)
[2019-03-03] MEDS: DOCUSATE SODIUM SUGAR FREE 100MG/10ML UDC NG SCH (09:00)
[2019-03-03] MEDS ORDERED: LOSARTAN POTASSIUM 100 MG TABLET PO SCH (09:30)
[2019-03-03] MEDS: FAMOTIDINE 20MG/2ML VIAL IV SCH (09:31)
[2019-03-03] MEDS: FUROSEMIDE 100MG/10ML VIAL IVP SCH (09:31)
[2019-03-03] MEDS: METOPROLOL TARTRATE 50MG TABLET PO SCH ×2 (09:31→20:25)
[2019-03-03] MEDS: AMLODIPINE 5MG TABLET PO SCH ×2 (09:31→20:25)
[2019-03-03] MEDS: QUETIAPINE FUMARATE 50MG TABLET PO SCH ×2 (09:31→20:25)
[2019-03-03] MEDS: LEVETIRACETAM 500 MG in SODIUM CHLORIDE 0.9% 100 ML IV SCH ×2 (09:32→20:54)
[2019-03-03] MEDS ORDERED: ENALAPRIL 1.25MG/ML VIAL 1ML IV PRN (10:45)
[2019-03-03] MEDS: ACETAMINOPHEN 325MG TABLET PO PRN (12:17)
[2019-03-03] MEDS: HYDRALAZINE 20MG/ML VIAL IV PRN (14:04)
[2019-03-03 15:12] LABS: BG BASE EXCESS -0.5 mmol/L (-2.0-2.0); BG CARBOXYHEMOGLOBIN 0.3 % (0.5-1.5); BG DEOXYHEMOGLOBIN 1.2 % (0.0-5.0); BG FRACTION INSPIRED OXYGEN 100; BG HCO3 ACT 22.5 mmol/L (22.0-26.0); BG METHEMOGLOBIN 0.5 % (0.0-1.5); BG OXYGEN SATURATION 98.8 % (92.0-98.5); BG PCO2 31.3 mmHg (35.0-45.0); BG PH 7.475 (7.350-7.450); BG PO2 169.3 mmHg (75.0-100.0); BG SAMPLE SITE RIGHT RADIAL; BG TOTAL HEMOGLOBIN 10.3 g/dL (12.0-18.0); BG VENT MODE MASK - NRB
[2019-03-03] MEDS ORDERED: FUROSEMIDE 100MG/10ML VIAL IVP NR (17:15)
[2019-03-03 17:56] LABS: PLATELET ESTIMATE NORMAL
[2019-03-03] MEDS: MORPHINE SULFATE 4 MG/ML CPJ (NOT FOR IM USE) IV PRN (18:36)
[2019-03-03] MEDS: EPOETIN ALFA 10000UNITS/ML VIAL SUBCUT SCH (20:54)
[2019-03-04] VITALS (52 sets, daily range): BP systolic 105–163; BP diastolic 56–119
[2019-03-04] MEDS: IPRATROPIUM/ALBUTEROL 0.5-3(2.5)MG/3ML NEB HHN SCH ×6 (00:32→20:29)
[2019-03-04] MEDS: LORAZEPAM 2MG/ML CPJ IV PRN ×2 (01:33→16:37)
[2019-03-04 05:03] LABS: BASOPHILS % 0.5 % (0.0-2.0); EOSINOPHILS % 3.5 % (0.0-5.0); HEMATOCRIT. 27.4 % (42.0-52.0); LYMPHOCYTES % 9.3 % (20.0-50.0); MEAN CORPUSCULAR VOLUME 90.8 fL (80.0-94.0); MEAN PLATELET VOLUME 8.6 fl (7.4-10.4); MONOCYTES % 10.1 % (2.0-8.0); NEUTROPHILS % 76.6 % (40.0-76.0); PLATELET 305 x1000/uL (130-400); RED BLOOD CELL COUNT 3.02 mill/uL (4.7-6.1); RED CELL DISTRIBUTION WIDTH 16.1 % (11.6-14.6)
[2019-03-04] MEDS: PIPERACILLIN/TAZ 2.25G PREMIX 50 ML IV SCH ×3 (05:13→21:14)
[2019-03-04] MEDS: BLOOD SUGAR DIAGNOSTIC STRIP TEST SCH ×4 (07:50→20:53)
[2019-03-04] MEDS: LEVETIRACETAM 500 MG in SODIUM CHLORIDE 0.9% 100 ML IV SCH ×2 (08:49→20:35)
[2019-03-04] MEDS: FUROSEMIDE 100MG/10ML VIAL IVP SCH (08:49)
[2019-03-04] MEDS: DOCUSATE SODIUM SUGAR FREE 100MG/10ML UDC NG SCH (08:49)
[2019-03-04] MEDS: FAMOTIDINE 20MG/2ML VIAL IV SCH (08:49)
[2019-03-04] MEDS: QUETIAPINE FUMARATE 50MG TABLET PO SCH ×2 (08:50→20:36)
[2019-03-04] MEDS: METOPROLOL TARTRATE 100MG TABLET PO SCH ×2 (08:50→20:36)
[2019-03-04] MEDS: AMLODIPINE 5MG TABLET PO SCH ×2 (08:50→20:36)
[2019-03-04] MEDS: DEXT 5%/0.45% NACL 1000ML 1,000 ML IV SCH (15:15)
[2019-03-05] VITALS (48 sets, daily range): BP systolic 131–168; BP diastolic 69–117
[2019-03-05] MEDS: IPRATROPIUM/ALBUTEROL 0.5-3(2.5)MG/3ML NEB HHN SCH ×6 (00:26→21:04)
[2019-03-05] MEDS: PIPERACILLIN/TAZ 2.25G PREMIX 50 ML IV SCH ×3 (05:17→22:05)
[2019-03-05 05:48] LABS: BASOPHILS % 0.5 % (0.0-2.0); EOSINOPHILS % 5.8 % (0.0-5.0); HEMATOCRIT. 28.6 % (42.0-52.0); HEMOGLOBIN. 9.4 g/dL (14.0-18.0); LYMPHOCYTES % 9.6 % (20.0-50.0); MEAN CORPUSCULAR HEMOGLOBIN 29.5 pg (28.0-32.0); MEAN CORPUSCULAR VOLUME 89.6 fL (80.0-94.0); MEAN PLATELET VOLUME 8.6 fl (7.4-10.4); NEUTROPHILS % 74.1 % (40.0-76.0); PLATELET 282 x1000/uL (130-400); RED CELL DISTRIBUTION WIDTH 16.2 % (11.6-14.6)
[2019-03-05] MEDS: FUROSEMIDE 100MG/10ML VIAL IVP SCH (08:25)
[2019-03-05] MEDS: LEVETIRACETAM 500 MG in SODIUM CHLORIDE 0.9% 100 ML IV SCH ×2 (08:25→20:50)
[2019-03-05] MEDS: DOCUSATE SODIUM SUGAR FREE 100MG/10ML UDC NG SCH (08:25)
[2019-03-05] MEDS: FAMOTIDINE 20MG/2ML VIAL IV SCH (08:25)
[2019-03-05] MEDS: METOPROLOL TARTRATE 100MG TABLET PO SCH ×2 (08:26→20:51)
[2019-03-05] MEDS: AMLODIPINE 5MG TABLET PO SCH ×2 (08:26→20:51)
[2019-03-05] MEDS: QUETIAPINE FUMARATE 50MG TABLET PO SCH ×2 (08:26→20:51)
[2019-03-05] MEDS: BLOOD SUGAR DIAGNOSTIC STRIP TEST SCH ×4 (08:27→20:52)
[2019-03-05] MEDS: LORAZEPAM 2MG/ML CPJ IV PRN ×2 (11:26→17:06)
[2019-03-05] MEDS: HYDRALAZINE HCL 25MG TABLET PO SCH ×2 (13:35→22:06)
[2019-03-05] MEDS ORDERED: HYDRALAZINE HCL 25MG TABLET PO SCH (14:00)
[2019-03-05] MEDS: DEXT 5%/0.45% NACL 1000ML 1,000 ML IV SCH (16:03)
[2019-03-05 16:41] LABS: CLARITY URINE CLEAR (CLEAR); COLOR URINE YELLOW (YELLOW); KETONES URINE NEGATIVE (NEGATIVE); LEUKOCYTE ESTERASE URINE TRACE (NEGATIVE); NITRITE URINE NEGATIVE (NEGATIVE); OCCULT BLOOD URINE TRACE (NEGATIVE); PH URINE 6.5 (4.5-8.0); PROTEIN URINE TRACE (NEGATIVE); SPECIFIC GRAVITY URINE 1.008 (1.005-1.030); UROBILINOGEN URINE 0.2 E.U./dL (0.2-1.0)
[2019-03-06] VITALS (10 sets, daily range): BP systolic 137–180; BP diastolic 68–102
[2019-03-06] MEDS: IPRATROPIUM/ALBUTEROL 0.5-3(2.5)MG/3ML NEB HHN SCH ×6 (00:15→20:51)
[2019-03-06] MEDS: HYDRALAZINE HCL 25MG TABLET PO SCH (06:04)
[2019-03-06 06:44] LABS: BASOPHILS % 0.6 % (0.0-2.0); EOSINOPHILS % 4.2 % (0.0-5.0); HEMATOCRIT. 28.6 % (42.0-52.0); HEMOGLOBIN. 9.5 g/dL (14.0-18.0); LYMPHOCYTES % 8.2 % (20.0-50.0); MEAN CORPUSCULAR HEMOGLOBIN 29.2 pg (28.0-32.0); MEAN CORPUSCULAR VOLUME 88.1 fL (80.0-94.0); MEAN PLATELET VOLUME 8.7 fl (7.4-10.4); MONOCYTES % 8.9 % (2.0-8.0); NEUTROPHILS % 78.1 % (40.0-76.0); PLATELET 316 x1000/uL (130-400); RED BLOOD CELL COUNT 3.25 mill/uL (4.7-6.1); RED CELL DISTRIBUTION WIDTH 16.4 % (11.6-14.6)
[2019-03-06] MEDS: BLOOD SUGAR DIAGNOSTIC STRIP TEST SCH ×4 (06:46→21:15)
[2019-03-06 07:12] LABS: CHLORIDE 104 mEq/L (98-107)
[2019-03-06] MEDS: METOPROLOL TARTRATE 100MG TABLET PO SCH ×2 (09:00→20:08)
[2019-03-06] MEDS: DOCUSATE SODIUM SUGAR FREE 100MG/10ML UDC NG SCH (09:00)
[2019-03-06] MEDS: AMLODIPINE 5MG TABLET PO SCH ×2 (09:00→20:08)
[2019-03-06] MEDS: LORAZEPAM 2MG/ML CPJ IV PRN ×2 (10:05→20:08)
[2019-03-06] MEDS: QUETIAPINE FUMARATE 50MG TABLET PO SCH ×2 (10:05→20:08)
[2019-03-06] MEDS: FAMOTIDINE 20MG/2ML VIAL IV SCH (11:51)
[2019-03-06] MEDS: DEXT 5%/0.45% NACL 1000ML 1,000 ML IV SCH (11:52)
[2019-03-06] MEDS: LEVETIRACETAM 500 MG in SODIUM CHLORIDE 0.9% 100 ML IV SCH ×2 (11:52→21:05)
[2019-03-06] MEDS: HYDRALAZINE HCL 100MG TABLET PO SCH ×2 (14:00→21:05)
[2019-03-06] MEDS: FUROSEMIDE 100MG/10ML VIAL IVP SCH (14:58)
[2019-03-06] MEDS: ONDANSETRON HCL 4MG/2ML INJ IV PRN (14:58)
[2019-03-06] MEDS: HYDRALAZINE 20MG/ML VIAL IV PRN (16:58)
[2019-03-06] MEDS: HALOPERIDOL LACTATE 5MG/ML VIAL IM PRN (22:50)
[2019-03-07] VITALS (13 sets, daily range): BP systolic 145–177; BP diastolic 72–92
[2019-03-07] MEDS: IPRATROPIUM/ALBUTEROL 0.5-3(2.5)MG/3ML NEB HHN SCH ×6 (01:17→20:41)
[2019-03-07] MEDS: LORAZEPAM 2MG/ML CPJ IV PRN ×3 (03:32→17:29)
[2019-03-07] MEDS: CLONIDINE 0.1MG TABLET PO PRN (04:09)
[2019-03-07] MEDS: HYDRALAZINE HCL 100MG TABLET PO SCH ×3 (05:54→21:25)
[2019-03-07] MEDS: BLOOD SUGAR DIAGNOSTIC STRIP TEST SCH ×4 (05:54→20:52)
[2019-03-07 07:35] LABS: CHLORIDE 106 mEq/L (98-107)
[2019-03-07 07:43] LABS: BASOPHILS % 0.8 % (0.0-2.0); HEMATOCRIT. 31.2 % (42.0-52.0); HEMOGLOBIN. 10.4 g/dL (14.0-18.0); LYMPHOCYTES % 8.8 % (20.0-50.0); MEAN CORPUSCULAR HEMOGLOBIN 30.1 pg (28.0-32.0); MONOCYTES % 9.5 % (2.0-8.0); NEUTROPHILS % 75.9 % (40.0-76.0); RED BLOOD CELL COUNT 3.47 mill/uL (4.7-6.1); RED CELL DISTRIBUTION WIDTH 16.6 % (11.6-14.6)
[2019-03-07] MEDS: FUROSEMIDE 100MG/10ML VIAL IVP SCH (08:28)
[2019-03-07] MEDS: METOPROLOL TARTRATE 100MG TABLET PO SCH ×2 (08:29→21:25)
[2019-03-07] MEDS: QUETIAPINE FUMARATE 50MG TABLET PO SCH ×2 (08:29→21:25)
[2019-03-07] MEDS: LEVETIRACETAM 500 MG in SODIUM CHLORIDE 0.9% 100 ML IV SCH ×2 (08:29→21:25)
[2019-03-07] MEDS: AMLODIPINE 5MG TABLET PO SCH ×2 (08:30→21:25)
[2019-03-07] MEDS: DOCUSATE SODIUM SUGAR FREE 100MG/10ML UDC NG SCH ×2 (08:30→12:08)
[2019-03-07] MEDS: FAMOTIDINE 20MG/2ML VIAL IV SCH (08:30)
[2019-03-07] MEDS ORDERED: CLONIDINE HCL 0.2MG/24HR PATCH TD SCH (09:00)
[2019-03-07] MEDS ORDERED: CLONIDINE 0.2MG TABLET PO SCH (10:15)
[2019-03-07 10:25] LABS: PLATELET 323 x1000/uL (130-400)
[2019-03-07] MEDS: ONDANSETRON HCL 4MG/2ML INJ IV PRN (12:23)
[2019-03-07] MEDS: CLONIDINE HCL 0.3MG/24HR PATCH TD SCH (13:45)
[2019-03-07] MEDS: DEXT 5%/0.45% NACL 1000ML 1,000 ML IV SCH (13:50)
[2019-03-08] VITALS (11 sets, daily range): BP systolic 139–185; BP diastolic 69–95
[2019-03-08] MEDS: IPRATROPIUM/ALBUTEROL 0.5-3(2.5)MG/3ML NEB HHN SCH ×6 (00:27→21:03)
[2019-03-08] MEDS: LORAZEPAM 2MG/ML CPJ IV PRN (01:29)
[2019-03-08] MEDS: HYDRALAZINE HCL 100MG TABLET PO SCH ×3 (06:04→21:56)
[2019-03-08] MEDS: BLOOD SUGAR DIAGNOSTIC STRIP TEST SCH ×4 (06:04→21:42)
[2019-03-08 06:27] LABS: BASOPHILS % 0.7 % (0.0-2.0); EOSINOPHILS % 7.8 % (0.0-5.0); HEMATOCRIT. 29.8 % (42.0-52.0); HEMOGLOBIN. 9.7 g/dL (14.0-18.0); LYMPHOCYTES % 10.9 % (20.0-50.0); MEAN CORPUSCULAR VOLUME 89.1 fL (80.0-94.0); MEAN PLATELET VOLUME 8.8 fl (7.4-10.4); MONOCYTES % 8.3 % (2.0-8.0); NEUTROPHILS % 72.3 % (40.0-76.0); PLATELET 382 x1000/uL (130-400); RED BLOOD CELL COUNT 3.35 mill/uL (4.7-6.1); RED CELL DISTRIBUTION WIDTH 16.6 % (11.6-14.6)
[2019-03-08] MEDS: DOCUSATE SODIUM SUGAR FREE 100MG/10ML UDC NG SCH (08:25)
[2019-03-08] MEDS: METOPROLOL TARTRATE 100MG TABLET PO SCH ×2 (08:25→21:56)
[2019-03-08] MEDS: LEVETIRACETAM 500 MG in SODIUM CHLORIDE 0.9% 100 ML IV SCH ×2 (08:25→22:08)
[2019-03-08] MEDS: FAMOTIDINE 20MG/2ML VIAL IV SCH (08:26)
[2019-03-08] MEDS: FUROSEMIDE 100MG/10ML VIAL IVP SCH (08:26)
[2019-03-08] MEDS: AMLODIPINE 5MG TABLET PO SCH ×2 (08:26→21:56)
[2019-03-08] MEDS ORDERED: POTASSIUM CHLORIDE 20MEQ TABLET SR PO SCH (08:45)
[2019-03-08] MEDS: ENOXAPARIN 30MG/0.3ML SYR SUBCUT SCH (09:07)
[2019-03-08] MEDS: QUETIAPINE FUMARATE 25MG TABLET PO SCH ×2 (09:09→21:56)
[2019-03-08] MEDS: DEXT 5%/0.45% NACL 1000ML 1,000 ML IV SCH (14:53)
[2019-03-09] VITALS (7 sets, daily range): BP systolic 117–149; BP diastolic 70–81
[2019-03-09] MEDS: LORAZEPAM 2MG/ML CPJ IV PRN ×2 (01:57→17:48)
[2019-03-09] MEDS: IPRATROPIUM/ALBUTEROL 0.5-3(2.5)MG/3ML NEB HHN SCH ×5 (04:30→21:45)
[2019-03-09] MEDS: BLOOD SUGAR DIAGNOSTIC STRIP TEST SCH ×4 (05:14→21:00)
[2019-03-09] MEDS: HYDRALAZINE HCL 100MG TABLET PO SCH ×3 (06:14→21:10)
[2019-03-09] MEDS: METOPROLOL TARTRATE 100MG TABLET PO SCH ×2 (09:40→21:10)
[2019-03-09] MEDS: AMLODIPINE 5MG TABLET PO SCH ×2 (09:40→21:10)
[2019-03-09] MEDS: ENOXAPARIN 30MG/0.3ML SYR SUBCUT SCH (09:50)
[2019-03-09] MEDS: FUROSEMIDE 100MG/10ML VIAL IVP SCH (09:56)
[2019-03-09] MEDS: FAMOTIDINE 20MG/2ML VIAL IV SCH (09:56)
[2019-03-09] MEDS: DOCUSATE SODIUM SUGAR FREE 100MG/10ML UDC NG SCH (10:07)
[2019-03-09] MEDS: LEVETIRACETAM 500 MG in SODIUM CHLORIDE 0.9% 100 ML IV SCH ×2 (10:18→21:10)
[2019-03-09] MEDS: DEXT 5%/0.45% NACL 1000ML 1,000 ML IV SCH (14:32)
[2019-03-09 16:34] LABS: BASOPHILS % 0.7 % (0.0-2.0); EOSINOPHILS % 5.4 % (0.0-5.0); HEMATOCRIT. 33.1 % (42.0-52.0); MEAN CORPUSCULAR HEMOGLOBIN 29.6 pg (28.0-32.0); MEAN CORPUSCULAR VOLUME 89.3 fL (80.0-94.0); MONOCYTES % 8.7 % (2.0-8.0); NEUTROPHILS % 73.2 % (40.0-76.0); PLATELET 391 x1000/uL (130-400); RED BLOOD CELL COUNT 3.71 mill/uL (4.7-6.1); RED CELL DISTRIBUTION WIDTH 16.7 % (11.6-14.6)
[2019-03-09] MEDS: QUETIAPINE FUMARATE 100MG TABLET PO SCH (21:10)
[2019-03-09] MEDS: ACETAMINOPHEN 325MG TABLET PO PRN (21:11)
[2019-03-10] VITALS: BP 116/64
[2019-03-10 04:00] VITALS: BP 125/79
[2019-03-10] MEDS: BLOOD SUGAR DIAGNOSTIC STRIP TEST SCH ×4 (05:11→22:54)
[2019-03-10] MEDS: HYDRALAZINE HCL 100MG TABLET PO SCH ×3 (05:32→21:59)
[2019-03-10 06:19] LABS: BASOPHILS % 1.1 % (0.0-2.0); EOSINOPHILS % 7.9 % (0.0-5.0); HEMATOCRIT. 30.5 % (42.0-52.0); HEMOGLOBIN. 10.2 g/dL (14.0-18.0); LYMPHOCYTES % 14.9 % (20.0-50.0); MEAN CORPUSCULAR HEMOGLOBIN 29.7 pg (28.0-32.0); MEAN CORPUSCULAR VOLUME 88.6 fL (80.0-94.0); MEAN PLATELET VOLUME 8.9 fl (7.4-10.4); MONOCYTES % 10.2 % (2.0-8.0); NEUTROPHILS % 65.9 % (40.0-76.0); PLATELET 399 x1000/uL (130-400); RED BLOOD CELL COUNT 3.44 mill/uL (4.7-6.1); RED CELL DISTRIBUTION WIDTH 16.5 % (11.6-14.6)
[2019-03-10] MEDS: METOPROLOL TARTRATE 100MG TABLET PO SCH ×2 (08:03→21:54)
[2019-03-10] MEDS: FUROSEMIDE 100MG/10ML VIAL IVP SCH (08:03)
[2019-03-10] MEDS: AMLODIPINE 5MG TABLET PO SCH ×2 (08:04→21:54)
[2019-03-10] MEDS: ENOXAPARIN 30MG/0.3ML SYR SUBCUT SCH (08:05)
[2019-03-10] MEDS: IPRATROPIUM/ALBUTEROL 0.5-3(2.5)MG/3ML NEB HHN SCH ×4 (08:06→20:00)
[2019-03-10] MEDS: DOCUSATE SODIUM SUGAR FREE 100MG/10ML UDC NG SCH (08:40)
[2019-03-10] MEDS: FAMOTIDINE 20MG/2ML VIAL IV SCH (08:40)
[2019-03-10] MEDS: QUETIAPINE FUMARATE 100MG TABLET PO SCH ×2 (08:40→21:59)
[2019-03-10] MEDS: LEVETIRACETAM 500 MG in SODIUM CHLORIDE 0.9% 100 ML IV SCH ×2 (08:40→21:53)
[2019-03-10] MEDS ORDERED: POTASSIUM CHLORIDE 20MEQ/PACKET PO SCH (08:45)
[2019-03-10 08:51] VITALS: BP 163/81
[2019-03-10] MEDS: LORAZEPAM 2MG/ML CPJ IV PRN ×3 (10:08→21:54)
[2019-03-10 11:40] VITALS: BP 138/71
[2019-03-10] MEDS: DEXT 5%/0.45% NACL 1000ML 1,000 ML IV SCH (14:52)
[2019-03-10 16:14] VITALS: BP 148/83
[2019-03-10 20:00] VITALS: BP 137/79
[2019-03-11] VITALS: BP 141/80
[2019-03-11] MEDS: IPRATROPIUM/ALBUTEROL 0.5-3(2.5)MG/3ML NEB HHN SCH ×6 (00:30→20:48)
[2019-03-11 04:00] VITALS: BP 134/74
[2019-03-11] MEDS: HYDRALAZINE HCL 100MG TABLET PO SCH ×3 (05:45→21:19)
[2019-03-11] MEDS: BLOOD SUGAR DIAGNOSTIC STRIP TEST SCH ×4 (06:05→21:00)
[2019-03-11 06:54] LABS: BASOPHILS % 1.1 % (0.0-2.0); EOSINOPHILS % 6.8 % (0.0-5.0); HEMATOCRIT. 31.6 % (42.0-52.0); HEMOGLOBIN. 10.4 g/dL (14.0-18.0); LYMPHOCYTES % 14.5 % (20.0-50.0); MEAN CORPUSCULAR HEMOGLOBIN 29.2 pg (28.0-32.0); MEAN CORPUSCULAR VOLUME 88.9 fL (80.0-94.0); MEAN PLATELET VOLUME 8.5 fl (7.4-10.4); NEUTROPHILS % 67.6 % (40.0-76.0); PLATELET 328 x1000/uL (130-400); RED BLOOD CELL COUNT 3.55 mill/uL (4.7-6.1); RED CELL DISTRIBUTION WIDTH 16.3 % (11.6-14.6)
[2019-03-11 08:00] VITALS: BP 130/73
[2019-03-11] MEDS: DOCUSATE SODIUM SUGAR FREE 100MG/10ML UDC PO SCH ×2 (09:00→13:09)
[2019-03-11] MEDS: AMLODIPINE 5MG TABLET PO SCH ×2 (09:11→21:01)
[2019-03-11] MEDS: QUETIAPINE FUMARATE 100MG TABLET PO SCH ×2 (09:12→21:01)
[2019-03-11] MEDS: METOPROLOL TARTRATE 100MG TABLET PO SCH ×2 (09:12→21:23)
[2019-03-11] MEDS: FUROSEMIDE 100MG/10ML VIAL IVP SCH (09:13)
[2019-03-11] MEDS: LEVETIRACETAM 500 MG in SODIUM CHLORIDE 0.9% 100 ML IV SCH ×2 (09:13→21:01)
[2019-03-11] MEDS: FAMOTIDINE 20MG/2ML VIAL IV SCH (09:13)
[2019-03-11] MEDS: ENOXAPARIN 30MG/0.3ML SYR SUBCUT SCH (09:14)
[2019-03-11] MEDS: LORAZEPAM 2MG/ML CPJ IV PRN ×2 (09:17→22:49)
[2019-03-11 12:00] VITALS: BP 140/74
[2019-03-11] MEDS ORDERED: ALTEPLASE 2MG/VIAL ITC NR (15:00)
[2019-03-11 16:00] VITALS: BP 130/68
[2019-03-11] MEDS: DEXT 5%/0.45% NACL 1000ML 1,000 ML IV SCH (19:24)
[2019-03-11 20:00] VITALS: BP 125/80
[2019-03-12] VITALS (7 sets, daily range): BP systolic 116–163; BP diastolic 71–88
[2019-03-12] MEDS: IPRATROPIUM/ALBUTEROL 0.5-3(2.5)MG/3ML NEB HHN SCH ×6 (00:26→20:50)
[2019-03-12] MEDS: HYDRALAZINE HCL 100MG TABLET PO SCH ×3 (06:00→22:00)
[2019-03-12] MEDS: BLOOD SUGAR DIAGNOSTIC STRIP TEST SCH ×4 (06:03→21:00)
[2019-03-12] MEDS: LEVETIRACETAM 500 MG in SODIUM CHLORIDE 0.9% 100 ML IV SCH ×2 (08:30→20:45)
[2019-03-12] MEDS: FAMOTIDINE 20MG/2ML VIAL IV SCH (08:30)
[2019-03-12] MEDS: FUROSEMIDE 100MG/10ML VIAL IVP SCH (08:30)
[2019-03-12] MEDS: METOPROLOL TARTRATE 100MG TABLET PO SCH ×2 (08:31→20:45)
[2019-03-12] MEDS: AMLODIPINE 5MG TABLET PO SCH ×2 (08:31→20:45)
[2019-03-12] MEDS: QUETIAPINE FUMARATE 100MG TABLET PO SCH ×2 (08:31→20:45)
[2019-03-12] MEDS: ENOXAPARIN 30MG/0.3ML SYR SUBCUT SCH (08:31)
[2019-03-12] MEDS: DEXT 5%/0.45% NACL 1000ML 1,000 ML IV SCH ×2 (10:08→22:52)
[2019-03-12] MEDS: LORAZEPAM 2MG/ML CPJ IV PRN ×3 (11:35→20:46)
[2019-03-13] VITALS: BP 109/64
[2019-03-13] MEDS: IPRATROPIUM/ALBUTEROL 0.5-3(2.5)MG/3ML NEB HHN SCH ×6 (00:25→20:00)
[2019-03-13 04:00] VITALS: BP 113/67
[2019-03-13] MEDS: HYDRALAZINE HCL 100MG TABLET PO SCH ×3 (05:06→21:26)
[2019-03-13 06:07] LABS: EOSINOPHILS % 8.5 % (0.0-5.0); HEMATOCRIT. 30.4 % (42.0-52.0); HEMOGLOBIN. 10.2 g/dL (14.0-18.0); LYMPHOCYTES % 18.7 % (20.0-50.0); MEAN CORPUSCULAR HEMOGLOBIN 29.6 pg (28.0-32.0); MEAN CORPUSCULAR VOLUME 87.8 fL (80.0-94.0); MEAN PLATELET VOLUME 8.4 fl (7.4-10.4); MONOCYTES % 8.7 % (2.0-8.0); NEUTROPHILS % 63.1 % (40.0-76.0); PLATELET 326 x1000/uL (130-400); RED BLOOD CELL COUNT 3.46 mill/uL (4.7-6.1); RED CELL DISTRIBUTION WIDTH 16.1 % (11.6-14.6)
[2019-03-13] MEDS: BLOOD SUGAR DIAGNOSTIC STRIP TEST SCH ×4 (07:02→21:00)
[2019-03-13] MEDS: LORAZEPAM 2MG/ML CPJ IV PRN (07:45)
[2019-03-13 08:00] VITALS: BP 126/65
[2019-03-13] MEDS: LEVETIRACETAM 500 MG in SODIUM CHLORIDE 0.9% 100 ML IV SCH ×2 (10:21→21:23)
[2019-03-13] MEDS: DEXT 5%/0.45% NACL 1000ML 1,000 ML IV SCH ×2 (10:22→21:24)
[2019-03-13] MEDS: FUROSEMIDE 100MG/10ML VIAL IVP SCH (10:23)
[2019-03-13] MEDS: ENOXAPARIN 30MG/0.3ML SYR SUBCUT SCH (10:23)
[2019-03-13] MEDS: METOPROLOL TARTRATE 100MG TABLET PO SCH ×2 (10:24→21:00)
[2019-03-13] MEDS: QUETIAPINE FUMARATE 100MG TABLET PO SCH ×2 (10:25→21:00)
[2019-03-13] MEDS: FAMOTIDINE 20MG/2ML VIAL IV SCH (10:29)
[2019-03-13] MEDS: AMLODIPINE 5MG TABLET PO SCH ×2 (10:32→21:00)
[2019-03-13 12:00] VITALS: BP 118/74
[2019-03-13] MEDS: DOCUSATE SODIUM SUGAR FREE 100MG/10ML UDC PO SCH (14:01)
[2019-03-13 16:00] VITALS: BP 126/65
[2019-03-13] MEDS: DIPHENHYDRAMINE 50MG/ML VIAL IV PRN (19:47)
[2019-03-14] MEDS: IPRATROPIUM/ALBUTEROL 0.5-3(2.5)MG/3ML NEB HHN SCH ×5 (00:56→21:42)
[2019-03-14 04:00] VITALS: BP 128/79
[2019-03-14] MEDS: HYDRALAZINE HCL 100MG TABLET PO SCH ×3 (06:00→23:00)
[2019-03-14] MEDS: BLOOD SUGAR DIAGNOSTIC STRIP TEST SCH ×4 (07:40→21:00)
[2019-03-14] MEDS: HALOPERIDOL LACTATE 5MG/ML VIAL IM PRN ×2 (07:46→18:21)
[2019-03-14 08:00] VITALS: BP 126/72
[2019-03-14] MEDS: CLONIDINE HCL 0.3MG/24HR PATCH TD SCH (09:00)
[2019-03-14] MEDS: LEVETIRACETAM 500MG TABLET PO SCH ×2 (09:00→17:16)
[2019-03-14] MEDS: METOPROLOL TARTRATE 100MG TABLET PO SCH ×2 (09:00→22:59)
[2019-03-14] MEDS: DOCUSATE SODIUM SUGAR FREE 100MG/10ML UDC PO SCH (09:00)
[2019-03-14] MEDS: AMLODIPINE 5MG TABLET PO SCH ×2 (09:00→22:59)
[2019-03-14] MEDS: FAMOTIDINE 20MG/2ML VIAL IV SCH (11:41)
[2019-03-14] MEDS: FUROSEMIDE 100MG/10ML VIAL IVP SCH (11:41)
[2019-03-14] MEDS: HYDRALAZINE 20MG/ML VIAL IV PRN (11:56)
[2019-03-14 12:00] VITALS: BP_SYST 116; BP_SYST 155; BP_DIAS 70; BP_DIAS 79
[2019-03-14] MEDS: QUETIAPINE FUMARATE 100MG TABLET PO SCH ×2 (12:58→22:59)
[2019-03-14] MEDS: ENOXAPARIN 30MG/0.3ML SYR SUBCUT SCH (12:58)
[2019-03-14] MEDS: DEXT 5%/0.45% NACL 1000ML 1,000 ML IV SCH (13:06)
[2019-03-14 20:00] VITALS: BP 132/82
[2019-03-15] VITALS: BP 124/58
[2019-03-15] MEDS: IPRATROPIUM/ALBUTEROL 0.5-3(2.5)MG/3ML NEB HHN SCH ×6 (01:21→22:24)
[2019-03-15] MEDS: HALOPERIDOL LACTATE 5MG/ML VIAL IM PRN ×2 (03:53→22:16)
[2019-03-15 04:00] VITALS: BP 120/54
[2019-03-15] MEDS: HYDRALAZINE HCL 100MG TABLET PO SCH ×3 (06:00→22:00)
[2019-03-15] MEDS: BLOOD SUGAR DIAGNOSTIC STRIP TEST SCH ×4 (06:15→21:00)
[2019-03-15] MEDS: DEXT 5%/0.45% NACL 1000ML 1,000 ML IV SCH ×2 (06:15→14:33)
[2019-03-15 06:32] LABS: BASOPHILS % 1.1 % (0.0-2.0); EOSINOPHILS % 6.7 % (0.0-5.0); HEMATOCRIT. 34.5 % (42.0-52.0); HEMOGLOBIN. 11.6 g/dL (14.0-18.0); LYMPHOCYTES % 21.6 % (20.0-50.0); MEAN CORPUSCULAR HEMOGLOBIN 29.4 pg (28.0-32.0); MEAN CORPUSCULAR VOLUME 87.3 fL (80.0-94.0); MEAN PLATELET VOLUME 8.7 fl (7.4-10.4); MONOCYTES % 9.9 % (2.0-8.0); NEUTROPHILS % 60.7 % (40.0-76.0); PLATELET 329 x1000/uL (130-400); RED BLOOD CELL COUNT 3.95 mill/uL (4.7-6.1); RED CELL DISTRIBUTION WIDTH 15.8 % (11.6-14.6)
[2019-03-15 08:00] VITALS: BP 123/70
[2019-03-15] MEDS ORDERED: HALOPERIDOL LACTATE 5MG/ML VIAL IM NR (09:40)
[2019-03-15] MEDS: LORAZEPAM 2MG/ML CPJ IV PRN ×2 (10:02→17:06)
[2019-03-15] MEDS: FAMOTIDINE 20MG TABLET PO SCH (10:11)
[2019-03-15] MEDS: METOPROLOL TARTRATE 100MG TABLET PO SCH ×2 (10:12→22:15)
[2019-03-15] MEDS: AMLODIPINE 5MG TABLET PO SCH ×2 (10:12→22:16)
[2019-03-15] MEDS: QUETIAPINE FUMARATE 100MG TABLET PO SCH ×2 (10:12→22:16)
[2019-03-15] MEDS: FUROSEMIDE 100MG/10ML VIAL IVP SCH (10:13)
[2019-03-15] MEDS: DOCUSATE SODIUM SUGAR FREE 100MG/10ML UDC PO SCH (10:13)
[2019-03-15] MEDS: ENOXAPARIN 30MG/0.3ML SYR SUBCUT SCH (10:13)
[2019-03-15] MEDS: LEVETIRACETAM 500MG TABLET PO SCH ×2 (10:13→17:00)
[2019-03-15] MEDS ORDERED: HALOPERIDOL LACTATE 5MG/ML VIAL IM PRN (11:30)
[2019-03-15 12:00] VITALS: BP 136/90
[2019-03-15] MEDS: DIPHENHYDRAMINE 50MG/ML VIAL IV PRN (12:19)
[2019-03-15 16:00] VITALS: BP 118/66
[2019-03-15 20:06] VITALS: BP 124/69
[2019-03-16] VITALS: BP 104/63
[2019-03-16] MEDS: DEXT 5%/0.45% NACL 1000ML 1,000 ML IV SCH ×2 (02:11→10:49)
[2019-03-16] MEDS: LORAZEPAM 2MG/ML CPJ IV PRN (02:39)
[2019-03-16 04:00] VITALS: BP 123/69
[2019-03-16] MEDS: HYDRALAZINE HCL 100MG TABLET PO SCH ×3 (05:08→22:00)
[2019-03-16] MEDS: IPRATROPIUM/ALBUTEROL 0.5-3(2.5)MG/3ML NEB HHN SCH ×6 (05:40→23:48)
[2019-03-16 06:54] LABS: BASOPHILS % 1.1 % (0.0-2.0); EOSINOPHILS % 5.7 % (0.0-5.0); HEMATOCRIT. 33.6 % (42.0-52.0); HEMOGLOBIN. 11.3 g/dL (14.0-18.0); LYMPHOCYTES % 22.6 % (20.0-50.0); MEAN CORPUSCULAR HEMOGLOBIN 29.1 pg (28.0-32.0); MEAN CORPUSCULAR VOLUME 86.7 fL (80.0-94.0); MEAN PLATELET VOLUME 8.7 fl (7.4-10.4); MONOCYTES % 8.7 % (2.0-8.0); NEUTROPHILS % 61.9 % (40.0-76.0); PLATELET 313 x1000/uL (130-400); RED BLOOD CELL COUNT 3.87 mill/uL (4.7-6.1); RED CELL DISTRIBUTION WIDTH 15.7 % (11.6-14.6)
[2019-03-16] MEDS: BLOOD SUGAR DIAGNOSTIC STRIP TEST SCH ×4 (06:57→20:30)
[2019-03-16 08:00] VITALS: BP 121/68
[2019-03-16] MEDS: FAMOTIDINE 20MG TABLET PO SCH (09:07)
[2019-03-16] MEDS: LEVETIRACETAM 500MG TABLET PO SCH ×2 (09:07→17:09)
[2019-03-16] MEDS: QUETIAPINE FUMARATE 100MG TABLET PO SCH ×2 (09:09→20:30)
[2019-03-16] MEDS: AMLODIPINE 5MG TABLET PO SCH ×3 (09:09→22:02)
[2019-03-16] MEDS: DOCUSATE SODIUM SUGAR FREE 100MG/10ML UDC PO SCH (09:10)
[2019-03-16] MEDS: METOPROLOL TARTRATE 100MG TABLET PO SCH ×2 (09:10→20:30)
[2019-03-16] MEDS: FUROSEMIDE 100MG/10ML VIAL IVP SCH (09:10)
[2019-03-16] MEDS: ENOXAPARIN 30MG/0.3ML SYR SUBCUT SCH (09:12)
[2019-03-16] MEDS: HALOPERIDOL LACTATE 5MG/ML VIAL IM PRN ×2 (11:07→11:12)
[2019-03-16 12:00] VITALS: BP 116/70
[2019-03-16 16:00] VITALS: BP 116/63
[2019-03-16 20:00] VITALS: BP 127/63
[2019-03-17] VITALS: BP 105/64
[2019-03-17] MEDS: DEXT 5%/0.45% NACL 1000ML 1,000 ML IV SCH ×2 (00:48→17:52)
[2019-03-17] MEDS: HALOPERIDOL LACTATE 5MG/ML VIAL IM PRN ×3 (03:43→21:59)
[2019-03-17 04:00] VITALS: BP 118/63
[2019-03-17] MEDS: IPRATROPIUM/ALBUTEROL 0.5-3(2.5)MG/3ML NEB HHN SCH ×5 (05:18→20:18)
[2019-03-17] MEDS: HYDRALAZINE HCL 100MG TABLET PO SCH ×3 (05:50→21:55)
[2019-03-17 05:56] LABS: PHOSPHORUS 3.5 mg/dL (2.5-4.9)
[2019-03-17 06:08] LABS: BASOPHILS % 0.8 % (0.0-2.0); EOSINOPHILS % 4.3 % (0.0-5.0); HEMATOCRIT. 32.5 % (42.0-52.0); LYMPHOCYTES % 27.1 % (20.0-50.0); MEAN CORPUSCULAR HEMOGLOBIN 29.4 pg (28.0-32.0); MONOCYTES % 10.5 % (2.0-8.0); NEUTROPHILS % 57.3 % (40.0-76.0); PLATELET 291 x1000/uL (130-400); RED BLOOD CELL COUNT 3.74 mill/uL (4.7-6.1); RED CELL DISTRIBUTION WIDTH 15.4 % (11.6-14.6)
[2019-03-17] MEDS: BLOOD SUGAR DIAGNOSTIC STRIP TEST SCH ×4 (07:40→21:00)
[2019-03-17 07:56] VITALS: BP 100/60
[2019-03-17] MEDS: LORAZEPAM 2MG/ML CPJ IV PRN ×2 (08:49→13:17)
[2019-03-17] MEDS: AMLODIPINE 5MG TABLET PO SCH ×2 (09:00→21:00)
[2019-03-17] MEDS: FUROSEMIDE 100MG/10ML VIAL IVP SCH (09:00)
[2019-03-17] MEDS: METOPROLOL TARTRATE 100MG TABLET PO SCH ×2 (09:00→21:00)
[2019-03-17] MEDS: DOCUSATE SODIUM SUGAR FREE 100MG/10ML UDC PO SCH (09:49)
[2019-03-17] MEDS: LEVETIRACETAM 500MG TABLET PO SCH ×2 (09:50→17:52)
[2019-03-17] MEDS: FAMOTIDINE 20MG TABLET PO SCH (09:50)
[2019-03-17] MEDS: QUETIAPINE FUMARATE 100MG TABLET PO SCH ×2 (09:50→21:00)
[2019-03-17] MEDS: ENOXAPARIN 40MG/0.4ML SYR SUBCUT SCH (09:52)
[2019-03-17 12:35] VITALS: BP 91/43
[2019-03-17] MEDS ORDERED: MAGNESIUM 1 G PREMIX 100 ML IV NR (14:00)
[2019-03-17 16:05] VITALS: BP 118/70
[2019-03-17 20:00] VITALS: BP 137/89
[2019-03-18] VITALS: BP 110/69
[2019-03-18] MEDS: IPRATROPIUM/ALBUTEROL 0.5-3(2.5)MG/3ML NEB HHN SCH ×6 (00:23→21:16)
[2019-03-18 04:00] VITALS: BP 120/69
[2019-03-18] MEDS: DEXT 5%/0.45% NACL 1000ML 1,000 ML IV SCH ×2 (05:05→21:53)
[2019-03-18] MEDS: HYDRALAZINE HCL 100MG TABLET PO SCH ×3 (05:40→22:00)
[2019-03-18 06:22] LABS: EOSINOPHILS % 3.3 % (0.0-5.0); HEMATOCRIT. 34.6 % (42.0-52.0); HEMOGLOBIN. 11.9 g/dL (14.0-18.0); LYMPHOCYTES % 23.8 % (20.0-50.0); MEAN CORPUSCULAR HEMOGLOBIN 29.6 pg (28.0-32.0); MEAN CORPUSCULAR VOLUME 86.3 fL (80.0-94.0); MONOCYTES % 11.7 % (2.0-8.0); NEUTROPHILS % 60.2 % (40.0-76.0); RED BLOOD CELL COUNT 4.01 mill/uL (4.7-6.1); RED CELL DISTRIBUTION WIDTH 15.4 % (11.6-14.6)
[2019-03-18] MEDS: BLOOD SUGAR DIAGNOSTIC STRIP TEST SCH ×4 (07:38→21:54)
[2019-03-18 08:00] VITALS: BP 120/75
[2019-03-18] MEDS: ENOXAPARIN 40MG/0.4ML SYR SUBCUT SCH (10:16)
[2019-03-18] MEDS: QUETIAPINE FUMARATE 100MG TABLET PO SCH ×2 (10:17→21:53)
[2019-03-18] MEDS: FAMOTIDINE 20MG TABLET PO SCH (10:17)
[2019-03-18] MEDS: AMLODIPINE 5MG TABLET PO SCH ×2 (10:17→21:53)
[2019-03-18] MEDS: METOPROLOL TARTRATE 100MG TABLET PO SCH ×2 (10:17→21:53)
[2019-03-18] MEDS: LEVETIRACETAM 500MG TABLET PO SCH ×2 (10:18→18:02)
[2019-03-18] MEDS: DOCUSATE SODIUM SUGAR FREE 100MG/10ML UDC PO SCH (10:18)
[2019-03-18] MEDS: LORAZEPAM 2MG/ML CPJ IV PRN ×3 (10:18→18:02)
[2019-03-18 12:00] VITALS: BP 112/68
[2019-03-18 16:00] VITALS: BP 105/63
[2019-03-18 20:00] VITALS: BP 126/63
[2019-03-19 00:12] VITALS: BP 127/69
[2019-03-19] MEDS: IPRATROPIUM/ALBUTEROL 0.5-3(2.5)MG/3ML NEB HHN SCH ×6 (01:05→20:42)
[2019-03-19 04:46] VITALS: BP 127/74
[2019-03-19] MEDS: LORAZEPAM 2MG/ML CPJ IV PRN ×4 (05:26→21:24)
[2019-03-19] MEDS: HYDRALAZINE HCL 100MG TABLET PO SCH ×3 (06:00→22:00)
[2019-03-19 06:22] LABS: BASOPHILS % 1.3 % (0.0-2.0); EOSINOPHILS % 4.4 % (0.0-5.0); HEMATOCRIT. 29.2 % (42.0-52.0); HEMOGLOBIN. 9.7 g/dL (14.0-18.0); LYMPHOCYTES % 32.7 % (20.0-50.0); MEAN CORPUSCULAR HEMOGLOBIN 29.1 pg (28.0-32.0); MEAN CORPUSCULAR VOLUME 87.4 fL (80.0-94.0); MEAN PLATELET VOLUME 9.5 fl (7.4-10.4); MONOCYTES % 12.3 % (2.0-8.0); NEUTROPHILS % 49.3 % (40.0-76.0); PLATELET 325 x1000/uL (130-400); RED BLOOD CELL COUNT 3.33 mill/uL (4.7-6.1); RED CELL DISTRIBUTION WIDTH 15.5 % (11.6-14.6)
[2019-03-19 06:32] LABS: CHLORIDE 108 mEq/L (98-107)
[2019-03-19] MEDS: BLOOD SUGAR DIAGNOSTIC STRIP TEST SCH ×4 (07:33→21:49)
[2019-03-19 08:00] VITALS: BP 118/64
[2019-03-19] MEDS: QUETIAPINE FUMARATE 100MG TABLET PO SCH ×2 (08:42→21:25)
[2019-03-19] MEDS: FAMOTIDINE 20MG TABLET PO SCH (08:42)
[2019-03-19] MEDS: ENOXAPARIN 40MG/0.4ML SYR SUBCUT SCH (08:42)
[2019-03-19] MEDS: AMLODIPINE 5MG TABLET PO SCH ×2 (08:42→21:26)
[2019-03-19] MEDS: METOPROLOL TARTRATE 100MG TABLET PO SCH ×2 (08:43→21:25)
[2019-03-19] MEDS: DOCUSATE SODIUM SUGAR FREE 100MG/10ML UDC PO SCH (09:26)
[2019-03-19] MEDS: DEXT 5%/0.45% NACL 1000ML 1,000 ML IV SCH ×2 (10:19→23:18)
[2019-03-19] MEDS: LEVETIRACETAM 500MG TABLET PO SCH ×2 (10:19→18:32)
[2019-03-19 12:00] VITALS: BP_SYST 68
[2019-03-19 16:00] VITALS: BP 113/64
[2019-03-19 20:00] VITALS: BP 127/70
[2019-03-20] VITALS: BP 120/79
[2019-03-20] MEDS: IPRATROPIUM/ALBUTEROL 0.5-3(2.5)MG/3ML NEB HHN SCH ×5 (01:30→20:25)
[2019-03-20 04:00] VITALS: BP 118/59
[2019-03-20] MEDS: LORAZEPAM 2MG/ML CPJ IV PRN ×3 (05:43→17:18)
[2019-03-20] MEDS: HYDRALAZINE HCL 100MG TABLET PO SCH ×3 (06:00→21:10)
[2019-03-20 06:25] LABS: CHLORIDE 108 mEq/L (98-107)
[2019-03-20 07:18] LABS: BASOPHILS % 1.2 % (0.0-2.0); EOSINOPHILS % 4.8 % (0.0-5.0); HEMATOCRIT. 29.8 % (42.0-52.0); HEMOGLOBIN. 9.9 g/dL (14.0-18.0); LYMPHOCYTES % 36.9 % (20.0-50.0); MEAN CORPUSCULAR VOLUME 87.4 fL (80.0-94.0); MEAN PLATELET VOLUME 9.7 fl (7.4-10.4); MONOCYTES % 10.9 % (2.0-8.0); NEUTROPHILS % 46.2 % (40.0-76.0); PLATELET 300 x1000/uL (130-400); RED BLOOD CELL COUNT 3.41 mill/uL (4.7-6.1); RED CELL DISTRIBUTION WIDTH 15.8 % (11.6-14.6)
[2019-03-20] MEDS: BLOOD SUGAR DIAGNOSTIC STRIP TEST SCH ×4 (07:40→21:10)
[2019-03-20 08:00] VITALS: BP 100/57
[2019-03-20] MEDS: METOPROLOL TARTRATE 100MG TABLET PO SCH ×2 (09:00→21:09)
[2019-03-20] MEDS: AMLODIPINE 5MG TABLET PO SCH ×2 (09:00→21:09)
[2019-03-20] MEDS: DOCUSATE SODIUM SUGAR FREE 100MG/10ML UDC PO SCH (10:01)
[2019-03-20] MEDS: LEVETIRACETAM 500MG TABLET PO SCH ×2 (10:02→17:17)
[2019-03-20] MEDS: ENOXAPARIN 40MG/0.4ML SYR SUBCUT SCH (10:02)
[2019-03-20] MEDS: QUETIAPINE FUMARATE 100MG TABLET PO SCH (10:02)
[2019-03-20] MEDS: FAMOTIDINE 20MG TABLET PO SCH (10:02)
[2019-03-20] MEDS: HALOPERIDOL LACTATE 5MG/ML VIAL IM PRN ×2 (11:52→23:17)
[2019-03-20 12:00] VITALS: BP 98/56
[2019-03-20] MEDS: DEXT 5%/0.45% NACL 1000ML 1,000 ML IV SCH (12:45)
[2019-03-20 20:00] VITALS: BP 132/89
[2019-03-20] MEDS: QUETIAPINE FUMARATE 50MG TABLET PO SCH (21:09)
[2019-03-20] MEDS: DIPHENHYDRAMINE 50MG/ML VIAL IV PRN (23:16)
[2019-03-21] VITALS: BP 124/78
[2019-03-21] MEDS: IPRATROPIUM/ALBUTEROL 0.5-3(2.5)MG/3ML NEB HHN SCH ×6 (00:06→20:56)
[2019-03-21] MEDS: DEXT 5%/0.45% NACL 1000ML 1,000 ML IV SCH ×2 (02:39→16:15)
[2019-03-21 04:00] VITALS: BP 102/67
[2019-03-21] MEDS: LORAZEPAM 2MG/ML CPJ IV PRN ×3 (04:37→19:49)
[2019-03-21] MEDS: HYDRALAZINE HCL 100MG TABLET PO SCH ×3 (06:00→22:00)
[2019-03-21] MEDS: HALOPERIDOL LACTATE 5MG/ML VIAL IM PRN ×3 (06:26→22:19)
[2019-03-21] MEDS: BLOOD SUGAR DIAGNOSTIC STRIP TEST SCH ×4 (07:40→20:58)
[2019-03-21 08:00] VITALS: BP 132/73
[2019-03-21] MEDS: ENOXAPARIN 40MG/0.4ML SYR SUBCUT SCH (08:55)
[2019-03-21] MEDS: CLONIDINE HCL 0.3MG/24HR PATCH TD SCH (08:55)
[2019-03-21] MEDS: LEVETIRACETAM 500MG TABLET PO SCH (08:56)
[2019-03-21] MEDS: AMLODIPINE 5MG TABLET PO SCH ×2 (08:56→21:13)
[2019-03-21] MEDS: FAMOTIDINE 20MG TABLET PO SCH (08:56)
[2019-03-21] MEDS: QUETIAPINE FUMARATE 50MG TABLET PO SCH ×2 (08:56→21:13)
[2019-03-21] MEDS: DOCUSATE SODIUM SUGAR FREE 100MG/10ML UDC PO SCH (08:56)
[2019-03-21] MEDS: METOPROLOL TARTRATE 100MG TABLET PO SCH ×2 (08:57→21:13)
[2019-03-21 12:00] VITALS: BP 109/67
[2019-03-21 16:00] VITALS: BP 124/76
[2019-03-21 20:00] VITALS: BP 112/62
[2019-03-22] VITALS: BP 118/62
[2019-03-22] MEDS: LORAZEPAM 2MG/ML CPJ IV PRN ×2 (03:39→08:17)
[2019-03-22 04:00] VITALS: BP 122/75
[2019-03-22] MEDS: HALOPERIDOL LACTATE 5MG/ML VIAL IM PRN ×3 (04:29→20:09)
[2019-03-22] MEDS: DEXT 5%/0.45% NACL 1000ML 1,000 ML IV SCH (04:32)
[2019-03-22] MEDS: IPRATROPIUM/ALBUTEROL 0.5-3(2.5)MG/3ML NEB HHN SCH ×7 (05:01→23:48)
[2019-03-22] MEDS: HYDRALAZINE HCL 100MG TABLET PO SCH ×3 (05:15→22:00)
[2019-03-22 05:39] LABS: EOSINOPHILS % 4.2 % (0.0-5.0); HEMATOCRIT. 31.4 % (42.0-52.0); HEMOGLOBIN. 10.5 g/dL (14.0-18.0); LYMPHOCYTES % 30.9 % (20.0-50.0); MEAN CORPUSCULAR VOLUME 86.7 fL (80.0-94.0); MEAN PLATELET VOLUME 9.4 fl (7.4-10.4); MONOCYTES % 9.9 % (2.0-8.0); PLATELET 333 x1000/uL (130-400); RED BLOOD CELL COUNT 3.62 mill/uL (4.7-6.1); RED CELL DISTRIBUTION WIDTH 15.7 % (11.6-14.6)
[2019-03-22 05:42] LABS: CHLORIDE 108 mEq/L (98-107)
[2019-03-22] MEDS: BLOOD SUGAR DIAGNOSTIC STRIP TEST SCH (07:40)
[2019-03-22 08:00] VITALS: BP 121/77
[2019-03-22] MEDS: DOCUSATE SODIUM SUGAR FREE 100MG/10ML UDC PO SCH (08:16)
[2019-03-22] MEDS: ENOXAPARIN 40MG/0.4ML SYR SUBCUT SCH (08:16)
[2019-03-22] MEDS: QUETIAPINE FUMARATE 50MG TABLET PO SCH ×2 (08:17→20:10)
[2019-03-22] MEDS: AMLODIPINE 5MG TABLET PO SCH ×2 (08:21→20:44)
[2019-03-22] MEDS: METOPROLOL TARTRATE 100MG TABLET PO SCH ×2 (08:22→20:44)
[2019-03-22 20:00] VITALS: BP 136/78
[2019-03-23] MEDS: IPRATROPIUM/ALBUTEROL 0.5-3(2.5)MG/3ML NEB HHN SCH ×3 (04:10→12:00)
[2019-03-23] MEDS: HALOPERIDOL LACTATE 5MG/ML VIAL IM PRN ×3 (05:16→23:25)
[2019-03-23] MEDS: HYDRALAZINE HCL 100MG TABLET PO SCH ×3 (06:00→22:38)
[2019-03-23] MEDS: DOCUSATE SODIUM SUGAR FREE 100MG/10ML UDC PO SCH (08:28)
[2019-03-23] MEDS: QUETIAPINE FUMARATE 50MG TABLET PO SCH (08:29)
[2019-03-23] MEDS: ENOXAPARIN 40MG/0.4ML SYR SUBCUT SCH (08:29)
[2019-03-23] MEDS: LORAZEPAM 2MG/ML CPJ IV PRN (08:30)
[2019-03-23] MEDS: METOPROLOL TARTRATE 100MG TABLET PO SCH ×2 (08:30→20:42)
[2019-03-23] MEDS: AMLODIPINE 5MG TABLET PO SCH ×2 (08:30→20:42)
[2019-03-23 12:00] VITALS: BP 107/62
[2019-03-23] MEDS: DIVALPROEX SODIUM 500MG ER TABLET PO SCH ×2 (13:09→20:43)
[2019-03-23] MEDS: QUETIAPINE FUMARATE 100MG TABLET PO SCH ×2 (13:10→20:43)
[2019-03-23 16:00] VITALS: BP 107/65
[2019-03-23 20:00] VITALS: BP 137/73
[2019-03-24] VITALS: BP 118/66
[2019-03-24 04:00] VITALS: BP 110/68
[2019-03-24] MEDS: HYDRALAZINE HCL 100MG TABLET PO SCH ×2 (06:38→20:17)
[2019-03-24] MEDS: HALOPERIDOL LACTATE 5MG/ML VIAL IM PRN ×3 (06:38→21:16)
[2019-03-24 08:00] VITALS: BP 121/77
[2019-03-24] MEDS: METOPROLOL TARTRATE 100MG TABLET PO SCH ×2 (08:45→20:18)
[2019-03-24] MEDS: DIVALPROEX SODIUM 500MG ER TABLET PO SCH ×2 (08:45→20:11)
[2019-03-24] MEDS: QUETIAPINE FUMARATE 100MG TABLET PO SCH ×2 (08:45→20:13)
[2019-03-24] MEDS: AMLODIPINE 5MG TABLET PO SCH ×2 (08:45→20:12)
[2019-03-24] MEDS: DOCUSATE SODIUM SUGAR FREE 100MG/10ML UDC PO SCH (08:46)
[2019-03-24] MEDS: ENOXAPARIN 40MG/0.4ML SYR SUBCUT SCH (08:47)
[2019-03-24 11:37] VITALS: BP 107/64
[2019-03-24 16:00] VITALS: BP 113/56
[2019-03-24 20:00] VITALS: BP 112/48
[2019-03-25] MEDS: DOCUSATE SODIUM SUGAR FREE 100MG/10ML UDC PO SCH (08:38)
[2019-03-25] MEDS: ENOXAPARIN 40MG/0.4ML SYR SUBCUT SCH (08:38)
[2019-03-25] MEDS: DIVALPROEX SODIUM 500MG ER TABLET PO SCH ×2 (08:39→20:16)
[2019-03-25] MEDS: QUETIAPINE FUMARATE 100MG TABLET PO SCH ×2 (08:39→20:17)
[2019-03-25] MEDS: METOPROLOL TARTRATE 100MG TABLET PO SCH ×2 (08:39→20:20)
[2019-03-25] MEDS: AMLODIPINE 5MG TABLET PO SCH ×2 (08:39→20:16)
[2019-03-25] MEDS: HALOPERIDOL LACTATE 5MG/ML VIAL IM PRN ×2 (08:40→15:43)
[2019-03-25] MEDS: HYDRALAZINE HCL 100MG TABLET PO SCH ×2 (08:40→20:20)
[2019-03-25 20:00] VITALS: BP 116/56
[2019-03-26 08:00] VITALS: BP 132/80
[2019-03-26] MEDS: ENOXAPARIN 40MG/0.4ML SYR SUBCUT SCH (08:36)
[2019-03-26] MEDS: DIVALPROEX SODIUM 500MG ER TABLET PO SCH (08:36)
[2019-03-26] MEDS: HYDRALAZINE HCL 100MG TABLET PO SCH ×2 (08:37→21:13)
[2019-03-26] MEDS: METOPROLOL TARTRATE 100MG TABLET PO SCH ×2 (08:37→21:15)
[2019-03-26] MEDS: DOCUSATE SODIUM SUGAR FREE 100MG/10ML UDC PO SCH (08:38)
[2019-03-26] MEDS: AMLODIPINE 5MG TABLET PO SCH ×2 (08:38→21:13)
[2019-03-26] MEDS: HALOPERIDOL LACTATE 5MG/ML VIAL IM PRN ×2 (08:42→23:06)
[2019-03-26] MEDS: QUETIAPINE FUMARATE 100MG TABLET PO SCH (08:42)
[2019-03-26] MEDS ORDERED: LORAZEPAM 2MG/ML CPJ IM PRN (08:45)
[2019-03-26 12:00] VITALS: BP 126/64
[2019-03-26 16:00] VITALS: BP 123/61
[2019-03-26 20:00] VITALS: BP 109/52
[2019-03-26] MEDS: DIVALPROEX SODIUM 250MG ER TABLET PO SCH (21:14)
[2019-03-26] MEDS: QUETIAPINE FUMARATE 50MG TABLET PO SCH (21:16)
[2019-03-27] VITALS: BP 129/65
[2019-03-27 04:00] VITALS: BP 141/67
[2019-03-27] MEDS: HALOPERIDOL LACTATE 5MG/ML VIAL IM PRN ×2 (05:25→12:26)
[2019-03-27 08:00] VITALS: BP 130/66
[2019-03-27] MEDS: METOPROLOL TARTRATE 100MG TABLET PO SCH ×2 (08:28→21:00)
[2019-03-27] MEDS: AMLODIPINE 5MG TABLET PO SCH ×2 (08:28→21:00)
[2019-03-27] MEDS: DIVALPROEX SODIUM 250MG ER TABLET PO SCH ×2 (08:28→23:58)
[2019-03-27] MEDS: QUETIAPINE FUMARATE 50MG TABLET PO SCH ×2 (08:28→23:58)
[2019-03-27] MEDS: HYDRALAZINE HCL 100MG TABLET PO SCH ×2 (08:28→21:00)
[2019-03-27] MEDS: ENOXAPARIN 40MG/0.4ML SYR SUBCUT SCH (08:29)
[2019-03-27 12:00] VITALS: BP 129/61
[2019-03-27 16:00] VITALS: BP 115/55
[2019-03-27 20:00] VITALS: BP 131/60
[2019-03-28] VITALS: BP 106/65
[2019-03-28 04:00] VITALS: BP 135/85
[2019-03-28 08:00] VITALS: BP 123/76
[2019-03-28] MEDS: DIVALPROEX SODIUM 250MG ER TABLET PO SCH ×2 (09:57→23:30)
[2019-03-28] MEDS: QUETIAPINE FUMARATE 50MG TABLET PO SCH ×2 (09:58→23:30)
[2019-03-28] MEDS: AMLODIPINE 5MG TABLET PO SCH ×2 (09:58→23:30)
[2019-03-28] MEDS: METOPROLOL TARTRATE 100MG TABLET PO SCH ×2 (09:58→21:00)
[2019-03-28] MEDS: ENOXAPARIN 40MG/0.4ML SYR SUBCUT SCH (09:59)
[2019-03-28] MEDS: HYDRALAZINE HCL 100MG TABLET PO SCH ×2 (09:59→21:00)
[2019-03-28 10:02] LABS: BASOPHILS % 0.9 % (0.0-2.0); EOSINOPHILS % 1.7 % (0.0-5.0); HEMATOCRIT. 33.9 % (42.0-52.0); HEMOGLOBIN. 11.1 g/dL (14.0-18.0); LYMPHOCYTES % 29.7 % (20.0-50.0); MEAN CORPUSCULAR HEMOGLOBIN 28.6 pg (28.0-32.0); MEAN CORPUSCULAR VOLUME 87.2 fL (80.0-94.0); MEAN PLATELET VOLUME 9.4 fl (7.4-10.4); MONOCYTES % 8.7 % (2.0-8.0); PLATELET 262 x1000/uL (130-400); RED BLOOD CELL COUNT 3.89 mill/uL (4.7-6.1); RED CELL DISTRIBUTION WIDTH 15.8 % (11.6-14.6)
[2019-03-28 10:08] LABS: CHLORIDE 105 mEq/L (98-107)
[2019-03-28 12:00] VITALS: BP 131/76
[2019-03-28] MEDS: CLONIDINE HCL 0.3MG/24HR PATCH TD SCH (12:19)
[2019-03-28] MEDS: HALOPERIDOL LACTATE 5MG/ML VIAL IM PRN ×2 (17:52→23:47)
[2019-03-28 20:00] VITALS: BP 119/64
[2019-03-29] VITALS: BP 119/74
[2019-03-29 04:00] VITALS: BP 150/80
[2019-03-29] MEDS: HYDRALAZINE HCL 100MG TABLET PO SCH ×2 (09:00→20:00)
[2019-03-29] MEDS: METOPROLOL TARTRATE 100MG TABLET PO SCH ×2 (09:00→19:55)
[2019-03-29] MEDS: AMLODIPINE 5MG TABLET PO SCH ×2 (09:00→19:55)
[2019-03-29] MEDS: HALOPERIDOL LACTATE 5MG/ML VIAL IM PRN ×2 (09:52→19:10)
[2019-03-29] MEDS: DIVALPROEX SODIUM 250MG ER TABLET PO SCH ×2 (09:56→19:56)
[2019-03-29] MEDS: QUETIAPINE FUMARATE 50MG TABLET PO SCH ×2 (09:56→19:56)
[2019-03-29] MEDS: ENOXAPARIN 40MG/0.4ML SYR SUBCUT SCH (09:57)
[2019-03-29 20:00] VITALS: BP 130/90
[2019-03-30] MEDS: HALOPERIDOL LACTATE 5MG/ML VIAL IM PRN ×2 (05:05→23:56)
[2019-03-30 08:00] VITALS: BP 128/87
[2019-03-30] MEDS: DIVALPROEX SODIUM 250MG ER TABLET PO SCH ×2 (08:33→21:31)
[2019-03-30] MEDS: ENOXAPARIN 40MG/0.4ML SYR SUBCUT SCH (08:33)
[2019-03-30] MEDS: HYDRALAZINE HCL 100MG TABLET PO SCH ×2 (08:43→21:00)
[2019-03-30] MEDS: METOPROLOL TARTRATE 100MG TABLET PO SCH ×2 (08:49→21:00)
[2019-03-30] MEDS: AMLODIPINE 5MG TABLET PO SCH ×2 (08:50→21:00)
[2019-03-30] MEDS: QUETIAPINE FUMARATE 50MG TABLET PO SCH ×2 (11:25→21:31)
[2019-03-30 12:00] VITALS: BP 102/63
[2019-03-30 20:00] VITALS: BP 105/50
[2019-03-31] MEDS: ENOXAPARIN 40MG/0.4ML SYR SUBCUT SCH (09:00)
[2019-03-31] MEDS: HYDRALAZINE HCL 100MG TABLET PO SCH ×2 (09:00→20:12)
[2019-03-31] MEDS: DIVALPROEX SODIUM 250MG ER TABLET PO SCH ×2 (09:38→20:13)
[2019-03-31] MEDS: QUETIAPINE FUMARATE 50MG TABLET PO SCH ×2 (09:39→20:12)
[2019-03-31 16:00] VITALS: BP 142/86
[2019-03-31] MEDS ORDERED: HALOPERIDOL 5MG TABLET PO PRN (17:15)
[2019-03-31 19:51] LABS: BASOPHILS % 0.6 % (0.0-2.0); EOSINOPHILS % 2.8 % (0.0-5.0); HEMATOCRIT. 33.3 % (42.0-52.0); HEMOGLOBIN. 11.1 g/dL (14.0-18.0); LYMPHOCYTES % 29.4 % (20.0-50.0); MEAN CORPUSCULAR HEMOGLOBIN 29.2 pg (28.0-32.0); MEAN CORPUSCULAR VOLUME 87.9 fL (80.0-94.0); MEAN PLATELET VOLUME 9.9 fl (7.4-10.4); MONOCYTES % 10.1 % (2.0-8.0); NEUTROPHILS % 57.1 % (40.0-76.0); PLATELET 199 x1000/uL (130-400); RED BLOOD CELL COUNT 3.78 mill/uL (4.7-6.1); RED CELL DISTRIBUTION WIDTH 16.1 % (11.6-14.6)
[2019-03-31 20:00] LABS: CHLORIDE 107 mEq/L (98-107)
[2019-04-01 08:00] VITALS: BP 161/86
[2019-04-01] MEDS: QUETIAPINE FUMARATE 50MG TABLET PO SCH ×2 (09:06→21:00)
[2019-04-01] MEDS: HYDRALAZINE HCL 100MG TABLET PO SCH ×2 (09:06→21:00)
[2019-04-01] MEDS: DIVALPROEX SODIUM 250MG ER TABLET PO SCH ×3 (09:06→22:48)
[2019-04-01] MEDS: ENOXAPARIN 40MG/0.4ML SYR SUBCUT SCH (09:07)
[2019-04-01] MEDS ORDERED: ONDANSETRON HCL 4MG/2ML INJ IV PRN (10:45)
[2019-04-01] MEDS ORDERED: CLONIDINE 0.1MG TABLET PO PRN (10:45)
[2019-04-01 12:00] VITALS: BP 152/83
[2019-04-01] MEDS ORDERED: LORAZEPAM 2MG/ML CPJ IV ONE (13:45)
[2019-04-01] MEDS ORDERED: LEVETIRACETAM 1,000 MG in SODIUM CHLORIDE 0.9% 100 ML IV ONE (13:45)
[2019-04-01 16:00] VITALS: BP 144/87
[2019-04-01] MEDS: HALOPERIDOL LACTATE 5MG/ML VIAL IM PRN (16:57)
[2019-04-01 20:00] VITALS: BP 128/80
[2019-04-01] MEDS: IPRATROPIUM/ALBUTEROL 0.5-3(2.5)MG/3ML NEB HHN SCH (20:29)
[2019-04-01] MEDS: AMLODIPINE 5MG TABLET PO SCH (20:58)
[2019-04-01] MEDS: LEVETIRACETAM 500MG TABLET PO SCH (22:48)
[2019-04-02] VITALS: BP 130/82
[2019-04-02] MEDS: IPRATROPIUM/ALBUTEROL 0.5-3(2.5)MG/3ML NEB HHN SCH ×4 (00:18→21:38)
[2019-04-02 04:00] VITALS: BP 133/84
[2019-04-02 08:00] VITALS: BP 159/70
[2019-04-02] MEDS: QUETIAPINE FUMARATE 50MG TABLET PO SCH ×2 (10:03→22:00)
[2019-04-02] MEDS: LEVETIRACETAM 500MG TABLET PO SCH ×2 (10:04→20:59)
[2019-04-02] MEDS: HYDRALAZINE HCL 100MG TABLET PO SCH ×2 (10:04→20:59)
[2019-04-02] MEDS: AMLODIPINE 5MG TABLET PO SCH ×2 (10:05→20:59)
[2019-04-02] MEDS: DIVALPROEX SODIUM 250MG ER TABLET PO SCH ×2 (10:05→20:58)
[2019-04-02] MEDS: ENOXAPARIN 40MG/0.4ML SYR SUBCUT SCH (10:06)
[2019-04-02 13:53] VITALS: BP 159/70
[2019-04-02 16:00] VITALS: BP 112/79
[2019-04-02 20:00] VITALS: BP 156/83
[2019-04-03] VITALS: BP 149/72
[2019-04-03] MEDS: IPRATROPIUM/ALBUTEROL 0.5-3(2.5)MG/3ML NEB HHN SCH ×4 (02:00→22:00)
[2019-04-03 04:00] VITALS: BP 140/79
[2019-04-03] MEDS: DIVALPROEX SODIUM 250MG ER TABLET PO SCH ×2 (09:07→20:38)
[2019-04-03] MEDS: AMLODIPINE 5MG TABLET PO SCH ×2 (09:07→20:39)
[2019-04-03] MEDS: LEVETIRACETAM 500MG TABLET PO SCH ×2 (09:07→20:38)
[2019-04-03] MEDS: HYDRALAZINE HCL 100MG TABLET PO SCH ×2 (09:07→20:38)
[2019-04-03] MEDS: ENOXAPARIN 40MG/0.4ML SYR SUBCUT SCH (09:11)
[2019-04-03 11:48] VITALS: BP 129/62
[2019-04-03] MEDS: QUETIAPINE FUMARATE 50MG TABLET PO SCH ×2 (12:45→20:37)
[2019-04-03 15:38] VITALS: BP 123/54
[2019-04-03 20:00] VITALS: BP 145/56
[2019-04-04] MEDS: IPRATROPIUM/ALBUTEROL 0.5-3(2.5)MG/3ML NEB HHN SCH ×4 (03:00→21:55)
[2019-04-04 04:00] VITALS: BP 129/71
[2019-04-04] MEDS: HALOPERIDOL LACTATE 5MG/ML VIAL IM PRN (04:37)
[2019-04-04 08:00] VITALS: BP 138/69
[2019-04-04] MEDS: THIAMINE HCL 100MG TABLET PO SCH (09:00)
[2019-04-04] MEDS: LEVETIRACETAM 500MG TABLET PO SCH ×2 (09:28→21:50)
[2019-04-04] MEDS: QUETIAPINE FUMARATE 50MG TABLET PO SCH ×2 (09:28→21:50)
[2019-04-04] MEDS: MULTIVITAMINS,THER W-MINERALS TABLET PO SCH (09:28)
[2019-04-04] MEDS: FOLIC ACID 1MG TABLET PO SCH (09:29)
[2019-04-04] MEDS: HYDRALAZINE HCL 100MG TABLET PO SCH ×2 (09:29→21:51)
[2019-04-04] MEDS: AMLODIPINE 5MG TABLET PO SCH ×2 (09:30→21:51)
[2019-04-04] MEDS: DIVALPROEX SODIUM 250MG ER TABLET PO SCH ×2 (09:30→21:50)
[2019-04-04] MEDS: CLONIDINE HCL 0.3MG/24HR PATCH TD SCH (09:39)
[2019-04-04] MEDS: ENOXAPARIN 40MG/0.4ML SYR SUBCUT SCH (09:59)
[2019-04-04 12:00] VITALS: BP 118/65
[2019-04-04 16:00] VITALS: BP 107/52
[2019-04-04] MEDS ORDERED: SODIUM CHLORIDE 0.9% 250 ML IV NR (20:00)
[2019-04-05] VITALS: BP 134/68
[2019-04-05] MEDS: IPRATROPIUM/ALBUTEROL 0.5-3(2.5)MG/3ML NEB HHN SCH ×4 (02:50→21:14)
[2019-04-05 04:00] VITALS: BP 128/64
[2019-04-05 08:00] VITALS: BP 148/78
[2019-04-05] MEDS: AMLODIPINE 5MG TABLET PO SCH ×2 (09:10→21:07)
[2019-04-05] MEDS: FOLIC ACID 1MG TABLET PO SCH (09:10)
[2019-04-05] MEDS: DIVALPROEX SODIUM 250MG ER TABLET PO SCH ×2 (09:10→21:07)
[2019-04-05] MEDS: MULTIVITAMINS,THER W-MINERALS TABLET PO SCH (09:10)
[2019-04-05] MEDS: THIAMINE HCL 100MG TABLET PO SCH (09:11)
[2019-04-05] MEDS: QUETIAPINE FUMARATE 50MG TABLET PO SCH ×2 (09:11→21:07)
[2019-04-05] MEDS: HYDRALAZINE HCL 100MG TABLET PO SCH ×2 (09:12→21:07)
[2019-04-05] MEDS: LEVETIRACETAM 500MG TABLET PO SCH ×2 (09:12→21:07)
[2019-04-05] MEDS: ENOXAPARIN 40MG/0.4ML SYR SUBCUT SCH (09:12)
[2019-04-05 12:00] VITALS: BP 138/78
[2019-04-05 16:00] VITALS: BP 136/69
[2019-04-05 20:00] VITALS: BP 139/75
[2019-04-06] VITALS: BP 109/61
[2019-04-06] MEDS: IPRATROPIUM/ALBUTEROL 0.5-3(2.5)MG/3ML NEB HHN SCH ×4 (01:15→20:06)
[2019-04-06 04:00] VITALS: BP 116/61
[2019-04-06 08:00] VITALS: BP 136/79
[2019-04-06 08:49] LABS: BASOPHILS % 0.5 % (0.0-2.0); EOSINOPHILS % 4.9 % (0.0-5.0); HEMATOCRIT. 32.7 % (42.0-52.0); HEMOGLOBIN. 10.5 g/dL (14.0-18.0); LYMPHOCYTES % 23.3 % (20.0-50.0); MEAN CORPUSCULAR HEMOGLOBIN 29.4 pg (28.0-32.0); MONOCYTES % 5.7 % (2.0-8.0); NEUTROPHILS % 65.6 % (40.0-76.0); RED BLOOD CELL COUNT 3.59 mill/uL (4.7-6.1); RED CELL DISTRIBUTION WIDTH 16.5 % (11.6-14.6)
[2019-04-06 09:03] LABS: CHLORIDE 103 mEq/L (98-107)
[2019-04-06 10:23] LABS: PLATELET ESTIMATE NORMAL
[2019-04-06] MEDS: DIVALPROEX SODIUM 250MG ER TABLET PO SCH ×2 (11:12→21:32)
[2019-04-06] MEDS: THIAMINE HCL 100MG TABLET PO SCH (11:13)
[2019-04-06] MEDS: QUETIAPINE FUMARATE 50MG TABLET PO SCH ×2 (11:13→22:02)
[2019-04-06] MEDS: FOLIC ACID 1MG TABLET PO SCH (11:14)
[2019-04-06] MEDS: AMLODIPINE 5MG TABLET PO SCH ×2 (11:14→21:32)
[2019-04-06] MEDS: LEVETIRACETAM 500MG TABLET PO SCH ×2 (11:14→21:33)
[2019-04-06] MEDS: HYDRALAZINE HCL 100MG TABLET PO SCH ×2 (11:14→21:33)
[2019-04-06] MEDS: MULTIVITAMINS,THER W-MINERALS TABLET PO SCH (11:14)
[2019-04-06 12:00] VITALS: BP 138/76
[2019-04-06 16:00] VITALS: BP 109/57
[2019-04-06 20:00] VITALS: BP 143/74
[2019-04-07] VITALS: BP 134/64
[2019-04-07] MEDS: IPRATROPIUM/ALBUTEROL 0.5-3(2.5)MG/3ML NEB HHN SCH ×4 (01:26→20:01)
[2019-04-07 04:00] VITALS: BP 131/78
[2019-04-07 08:00] VITALS: BP 148/76
[2019-04-07 10:04] LABS: CHLORIDE 102 mEq/L (98-107)
[2019-04-07] MEDS: DIVALPROEX SODIUM 250MG ER TABLET PO SCH ×2 (10:53→21:19)
[2019-04-07] MEDS: AMLODIPINE 5MG TABLET PO SCH ×2 (10:54→21:19)
[2019-04-07] MEDS: LEVETIRACETAM 500MG TABLET PO SCH ×2 (10:54→21:18)
[2019-04-07] MEDS: THIAMINE HCL 100MG TABLET PO SCH (10:54)
[2019-04-07] MEDS: QUETIAPINE FUMARATE 50MG TABLET PO SCH ×2 (10:54→21:20)
[2019-04-07] MEDS: MULTIVITAMINS,THER W-MINERALS TABLET PO SCH (10:54)
[2019-04-07] MEDS: FOLIC ACID 1MG TABLET PO SCH (10:54)
[2019-04-07] MEDS: HYDRALAZINE HCL 100MG TABLET PO SCH ×3 (11:10→21:19)
[2019-04-07] MEDS: ENOXAPARIN 40MG/0.4ML SYR SUBCUT SCH (11:17)
[2019-04-07 12:00] VITALS: BP 136/73
[2019-04-07 12:53] LABS: EOSINOPHILS % 4.5 % (0.0-5.0); HEMATOCRIT. 32.8 % (42.0-52.0); HEMOGLOBIN. 11.1 g/dL (14.0-18.0); LYMPHOCYTES % 20.3 % (20.0-50.0); MEAN CORPUSCULAR HEMOGLOBIN 29.9 pg (28.0-32.0); MEAN CORPUSCULAR VOLUME 88.7 fL (80.0-94.0); MONOCYTES % 6.1 % (2.0-8.0); NEUTROPHILS % 68.1 % (40.0-76.0); RED CELL DISTRIBUTION WIDTH 16.7 % (11.6-14.6)
[2019-04-07 16:00] VITALS: BP 122/60
[2019-04-07 20:00] VITALS: BP 126/69
[2019-04-08] VITALS: BP 133/71
[2019-04-08] MEDS: IPRATROPIUM/ALBUTEROL 0.5-3(2.5)MG/3ML NEB HHN SCH ×4 (03:58→20:35)
[2019-04-08 04:00] VITALS: BP 118/56
[2019-04-08 08:00] VITALS: BP 134/65
[2019-04-08] MEDS: MULTIVITAMINS,THER W-MINERALS TABLET PO SCH (09:34)
[2019-04-08] MEDS: ENOXAPARIN 40MG/0.4ML SYR SUBCUT SCH (09:34)
[2019-04-08] MEDS: AMLODIPINE 5MG TABLET PO SCH ×2 (09:35→20:38)
[2019-04-08] MEDS: FOLIC ACID 1MG TABLET PO SCH (09:35)
[2019-04-08] MEDS: THIAMINE HCL 100MG TABLET PO SCH (09:35)
[2019-04-08] MEDS: LEVETIRACETAM 500MG TABLET PO SCH ×2 (09:35→20:37)
[2019-04-08] MEDS: HYDRALAZINE HCL 100MG TABLET PO SCH ×2 (09:36→20:37)
[2019-04-08] MEDS: DIVALPROEX SODIUM 250MG ER TABLET PO SCH ×2 (11:16→20:37)
[2019-04-08] MEDS: QUETIAPINE FUMARATE 50MG TABLET PO SCH ×2 (11:17→20:38)
[2019-04-08 12:00] VITALS: BP 134/69
[2019-04-08 16:00] VITALS: BP 122/52
[2019-04-08] MEDS: DOCUSATE SODIUM 100MG CAPSULE PO SCH (17:37)
[2019-04-08 20:00] VITALS: BP 142/83
[2019-04-09] VITALS: BP 131/69
[2019-04-09 04:00] VITALS: BP 145/82
[2019-04-09] MEDS: IPRATROPIUM/ALBUTEROL 0.5-3(2.5)MG/3ML NEB HHN SCH ×4 (04:25→20:11)
[2019-04-09 08:00] VITALS: BP 138/70
[2019-04-09] MEDS: ENOXAPARIN 40MG/0.4ML SYR SUBCUT SCH (09:00)
[2019-04-09] MEDS: DIVALPROEX SODIUM 250MG ER TABLET PO SCH ×2 (10:09→21:37)
[2019-04-09] MEDS: DOCUSATE SODIUM 100MG CAPSULE PO SCH ×2 (10:09→19:04)
[2019-04-09] MEDS: THIAMINE HCL 100MG TABLET PO SCH (10:10)
[2019-04-09] MEDS: MULTIVITAMINS,THER W-MINERALS TABLET PO SCH (10:10)
[2019-04-09] MEDS: QUETIAPINE FUMARATE 50MG TABLET PO SCH ×2 (10:10→21:37)
[2019-04-09] MEDS: LEVETIRACETAM 500MG TABLET PO SCH ×2 (10:10→21:37)
[2019-04-09] MEDS: FOLIC ACID 1MG TABLET PO SCH (10:10)
[2019-04-09] MEDS: HYDRALAZINE HCL 100MG TABLET PO SCH ×2 (10:11→21:38)
[2019-04-09] MEDS: AMLODIPINE 5MG TABLET PO SCH ×2 (10:11→21:38)
[2019-04-09 12:00] VITALS: BP 146/67
[2019-04-09 12:52] LABS: BASOPHILS % 0.4 % (0.0-2.0); EOSINOPHILS % 3.4 % (0.0-5.0); HEMATOCRIT. 32.2 % (42.0-52.0); HEMOGLOBIN. 10.7 g/dL (14.0-18.0); LYMPHOCYTES % 19.6 % (20.0-50.0); MEAN CORPUSCULAR HEMOGLOBIN 29.6 pg (28.0-32.0); MEAN CORPUSCULAR VOLUME 88.8 fL (80.0-94.0); MEAN PLATELET VOLUME 10.2 fl (7.4-10.4); MONOCYTES % 11.9 % (2.0-8.0); NEUTROPHILS % 64.7 % (40.0-76.0); PLATELET 191 x1000/uL (130-400); RED BLOOD CELL COUNT 3.62 mill/uL (4.7-6.1); RED CELL DISTRIBUTION WIDTH 17.1 % (11.6-14.6)
[2019-04-09 16:00] VITALS: BP 141/71
[2019-04-09 20:00] VITALS: BP 126/65
[2019-04-10] VITALS: BP 143/60
[2019-04-10] MEDS: IPRATROPIUM/ALBUTEROL 0.5-3(2.5)MG/3ML NEB HHN SCH ×4 (01:01→20:51)
[2019-04-10 08:22] VITALS: BP 143/81
[2019-04-10] MEDS: DOCUSATE SODIUM 100MG CAPSULE PO SCH ×2 (09:56→18:35)
[2019-04-10] MEDS: THIAMINE HCL 100MG TABLET PO SCH (09:56)
[2019-04-10] MEDS: ENOXAPARIN 40MG/0.4ML SYR SUBCUT SCH (09:56)
[2019-04-10] MEDS: DIVALPROEX SODIUM 250MG ER TABLET PO SCH ×2 (09:56→21:05)
[2019-04-10] MEDS: LEVETIRACETAM 500MG TABLET PO SCH ×2 (09:57→21:05)
[2019-04-10] MEDS: AMLODIPINE 5MG TABLET PO SCH ×2 (09:57→21:05)
[2019-04-10] MEDS: FOLIC ACID 1MG TABLET PO SCH (09:57)
[2019-04-10] MEDS: MULTIVITAMINS,THER W-MINERALS TABLET PO SCH (09:57)
[2019-04-10] MEDS: HYDRALAZINE HCL 100MG TABLET PO SCH ×2 (09:58→21:00)
[2019-04-10] MEDS: QUETIAPINE FUMARATE 50MG TABLET PO SCH ×2 (11:57→21:04)
[2019-04-10 12:00] VITALS: BP 128/58
[2019-04-10 16:00] VITALS: BP 123/66
[2019-04-10 20:00] VITALS: BP 124/72
[2019-04-11] VITALS: BP 108/66
[2019-04-11] MEDS: IPRATROPIUM/ALBUTEROL 0.5-3(2.5)MG/3ML NEB HHN SCH ×4 (01:49→21:24)
[2019-04-11 04:00] VITALS: BP_SYST 132; BP_SYST 136; BP_DIAS 67; BP_DIAS 81
[2019-04-11 07:41] LABS: BASOPHILS % 0.4 % (0.0-2.0); EOSINOPHILS % 5.6 % (0.0-5.0); HEMATOCRIT. 30.6 % (42.0-52.0); HEMOGLOBIN. 10.3 g/dL (14.0-18.0); LYMPHOCYTES % 23.4 % (20.0-50.0); MEAN CORPUSCULAR HEMOGLOBIN 30.1 pg (28.0-32.0); MEAN CORPUSCULAR VOLUME 89.6 fL (80.0-94.0); MEAN PLATELET VOLUME 10.1 fl (7.4-10.4); MONOCYTES % 13.3 % (2.0-8.0); NEUTROPHILS % 57.3 % (40.0-76.0); PLATELET 202 x1000/uL (130-400); RED BLOOD CELL COUNT 3.42 mill/uL (4.7-6.1); RED CELL DISTRIBUTION WIDTH 16.8 % (11.6-14.6)
[2019-04-11 07:43] LABS: CHLORIDE 103 mEq/L (98-107)
[2019-04-11 08:00] VITALS: BP 130/72
[2019-04-11] MEDS: ENOXAPARIN 40MG/0.4ML SYR SUBCUT SCH (08:46)
[2019-04-11] MEDS: LEVETIRACETAM 500MG TABLET PO SCH (08:46)
[2019-04-11] MEDS: QUETIAPINE FUMARATE 50MG TABLET PO SCH (08:46)
[2019-04-11] MEDS: DOCUSATE SODIUM 100MG CAPSULE PO SCH ×2 (08:47→17:36)
[2019-04-11] MEDS: THIAMINE HCL 100MG TABLET PO SCH (08:47)
[2019-04-11] MEDS: FOLIC ACID 1MG TABLET PO SCH (08:47)
[2019-04-11] MEDS: AMLODIPINE 5MG TABLET PO SCH (08:48)
[2019-04-11] MEDS: MULTIVITAMINS,THER W-MINERALS TABLET PO SCH (08:48)
[2019-04-11] MEDS: HYDRALAZINE HCL 100MG TABLET PO SCH (08:49)
[2019-04-11] MEDS: DIVALPROEX SODIUM 250MG ER TABLET PO SCH (10:29)
[2019-04-11 12:00] VITALS: BP 126/71
[2019-04-11 16:00] VITALS: BP 133/64
[2019-04-11 20:00] VITALS: BP 146/70
[2019-04-12] VITALS: BP 139/64
[2019-04-12] MEDS: LEVETIRACETAM 500MG TABLET PO SCH ×3 (00:01→21:31)
[2019-04-12] MEDS: QUETIAPINE FUMARATE 50MG TABLET PO SCH ×3 (00:01→21:26)
[2019-04-12] MEDS: DIVALPROEX SODIUM 250MG ER TABLET PO SCH ×3 (00:02→21:30)
[2019-04-12] MEDS: AMLODIPINE 5MG TABLET PO SCH ×3 (00:03→21:31)
[2019-04-12] MEDS: IPRATROPIUM/ALBUTEROL 0.5-3(2.5)MG/3ML NEB HHN SCH ×4 (01:31→20:55)
[2019-04-12 04:00] VITALS: BP 130/67
[2019-04-12 08:00] VITALS: BP 119/66
[2019-04-12] MEDS: HYDRALAZINE HCL 100MG TABLET PO SCH ×3 (09:00→21:32)
[2019-04-12] MEDS: ENOXAPARIN 40MG/0.4ML SYR SUBCUT SCH (09:27)
[2019-04-12] MEDS: THIAMINE HCL 100MG TABLET PO SCH (09:28)
[2019-04-12] MEDS: MULTIVITAMINS,THER W-MINERALS TABLET PO SCH (09:28)
[2019-04-12] MEDS: FOLIC ACID 1MG TABLET PO SCH (09:28)
[2019-04-12] MEDS: DOCUSATE SODIUM 100MG CAPSULE PO SCH ×2 (09:30→17:28)
[2019-04-12 12:23] VITALS: BP 128/66
[2019-04-12 16:00] VITALS: BP 131/69
[2019-04-12 20:00] VITALS: BP 136/93
[2019-04-13] VITALS: BP 124/73
[2019-04-13] MEDS: IPRATROPIUM/ALBUTEROL 0.5-3(2.5)MG/3ML NEB HHN SCH ×4 (01:17→21:53)
[2019-04-13 04:00] VITALS: BP 114/66
[2019-04-13 08:00] VITALS: BP 137/71
[2019-04-13] MEDS: DOCUSATE SODIUM 100MG CAPSULE PO SCH ×2 (08:46→17:44)
[2019-04-13] MEDS: HYDRALAZINE HCL 100MG TABLET PO SCH ×2 (08:46→21:00)
[2019-04-13] MEDS: LEVETIRACETAM 500MG TABLET PO SCH ×2 (08:47→21:14)
[2019-04-13] MEDS: DIVALPROEX SODIUM 250MG ER TABLET PO SCH ×2 (08:47→21:14)
[2019-04-13] MEDS: FOLIC ACID 1MG TABLET PO SCH (08:47)
[2019-04-13] MEDS: AMLODIPINE 5MG TABLET PO SCH ×2 (08:48→21:14)
[2019-04-13] MEDS: QUETIAPINE FUMARATE 50MG TABLET PO SCH ×2 (08:48→21:10)
[2019-04-13] MEDS: MULTIVITAMINS,THER W-MINERALS TABLET PO SCH (08:48)
[2019-04-13] MEDS: THIAMINE HCL 100MG TABLET PO SCH (08:48)
[2019-04-13] MEDS: ENOXAPARIN 40MG/0.4ML SYR SUBCUT SCH (08:49)
[2019-04-13 12:00] VITALS: BP 130/60
[2019-04-13 16:43] VITALS: BP 136/74
[2019-04-13 20:00] VITALS: BP 123/67
[2019-04-14] VITALS: BP 131/73
[2019-04-14] MEDS: IPRATROPIUM/ALBUTEROL 0.5-3(2.5)MG/3ML NEB HHN SCH ×3 (02:52→13:00)
[2019-04-14 04:00] VITALS: BP 130/73
[2019-04-14 08:00] VITALS: BP 150/76
[2019-04-14] MEDS: DOCUSATE SODIUM 100MG CAPSULE PO SCH ×2 (09:12→16:28)
[2019-04-14] MEDS: THIAMINE HCL 100MG TABLET PO SCH (09:12)
[2019-04-14] MEDS: FOLIC ACID 1MG TABLET PO SCH (09:12)
[2019-04-14] MEDS: MULTIVITAMINS,THER W-MINERALS TABLET PO SCH (09:12)
[2019-04-14] MEDS: LEVETIRACETAM 500MG TABLET PO SCH (09:12)
[2019-04-14] MEDS: DIVALPROEX SODIUM 250MG ER TABLET PO SCH (09:13)
[2019-04-14] MEDS: HYDRALAZINE HCL 100MG TABLET PO SCH (09:13)
[2019-04-14] MEDS: AMLODIPINE 5MG TABLET PO SCH (09:13)
[2019-04-14] MEDS: QUETIAPINE FUMARATE 50MG TABLET PO SCH (09:14)
[2019-04-14] MEDS: ENOXAPARIN 40MG/0.4ML SYR SUBCUT SCH (09:14)
[2019-04-14] MEDS ORDERED: QUET50TA PO (11:37)
[2019-04-14] MEDS ORDERED: KEPP500 PO (11:37)
[2019-04-14] MEDS ORDERED: THIA100T72 PO (11:37)
[2019-04-14] MEDS ORDERED: DIVAL250 PO (11:37)
[2019-04-14] MEDS ORDERED: HYDR100T26 PO (11:37)
[2019-04-14] MEDS ORDERED: AMLO5TAB88 PO (11:37)
[2019-04-14 12:00] VITALS: BP 121/61
[2019-04-14 16:00] VITALS: BP 145/79
== END 2019-04-14 18:21 | disposition left against medical advice (07) | DRG 710 ==
LOC: ER 19:12 → 3WST 02-21 02:50 → EDBEDREQTM 02-21 02:54 → EDBEDREQ 02-21 02:54 → EDBEDREQDT 02-21 02:54 → ENRESERV 02-21 03:22 → CVICU 02-21 11:09 → 3WST 03-05 22:45 → 7WST 03-08 16:13 → 6EST 03-22 11:08 → 8WST 04-01 17:36 → 6EST 04-02 23:48 → 5WST 04-04 21:31 → 6EST 04-12 16:36
PROVIDERS: ADMIT Internal Medicine; ATTEND Internal Medicine
PROC: 0W9B30Z Drainage of Left Pleural Cavity with Drainage Device, Percutaneous Approach (ICD-10-PCS; 2019-02-20)
PROC: 02HV33Z Insertion of Infusion Device into Superior Vena Cava, Percutaneous Approach (ICD-10-PCS; 2019-02-21)
PROC: B548ZZA Ultrasonography of Superior Vena Cava, Guidance (ICD-10-PCS; 2019-02-21)
PROC: 5A1955Z Respiratory Ventilation, Greater than 96 Consecutive Hours (ICD-10-PCS; principal; 2019-02-22)
PROC: 0BH17EZ Insertion of Endotracheal Airway into Trachea, Via Natural or Artificial Opening (ICD-10-PCS; 2019-02-22)
PROC: 0BNG4ZZ Release Left Upper Lung Lobe, Percutaneous Endoscopic Approach (ICD-10-PCS; 2019-02-22)
PROC: 0BNJ4ZZ Release Left Lower Lung Lobe, Percutaneous Endoscopic Approach (ICD-10-PCS; 2019-02-22)
PROC: 0W9B40Z Drainage of Left Pleural Cavity with Drainage Device, Percutaneous Endoscopic Approach (ICD-10-PCS; 2019-02-22)
PROC: 30233N1 Transfusion of Nonautologous Red Blood Cells into Peripheral Vein, Percutaneous Approach (ICD-10-PCS; 2019-02-22)
PROC: 0BNL4ZZ Release Left Lung, Percutaneous Endoscopic Approach (ICD-10-PCS; 2019-02-22)
PROC: 0BJ08ZZ Inspection of Tracheobronchial Tree, Via Natural or Artificial Opening Endoscopic (ICD-10-PCS; 2019-02-22)
PROC: 4A10X4Z Monitoring of Central Nervous Electrical Activity, External Approach (ICD-10-PCS; 2019-02-23)
PROC: 02HV33Z Insertion of Infusion Device into Superior Vena Cava, Percutaneous Approach (ICD-10-PCS; 2019-02-26)
PROC: B548ZZA Ultrasonography of Superior Vena Cava, Guidance (ICD-10-PCS; 2019-02-26)
PROC: 5A1D70Z Performance of Urinary Filtration, Intermittent, Less than 6 Hours Per Day (ICD-10-PCS; 2019-02-26)
PROC: 5A1D70Z Performance of Urinary Filtration, Intermittent, Less than 6 Hours Per Day (ICD-10-PCS; 2019-02-27)
PROC: 5A1D70Z Performance of Urinary Filtration, Intermittent, Less than 6 Hours Per Day (ICD-10-PCS; 2019-02-28)
PROC: 5A1D70Z Performance of Urinary Filtration, Intermittent, Less than 6 Hours Per Day (ICD-10-PCS; 2019-03-02)
PROC: 5A1D70Z Performance of Urinary Filtration, Intermittent, Less than 6 Hours Per Day (ICD-10-PCS; 2019-03-04)
PROC: 5A1D70Z Performance of Urinary Filtration, Intermittent, Less than 6 Hours Per Day (ICD-10-PCS; 2019-03-06)
PROC: 5A1D70Z Performance of Urinary Filtration, Intermittent, Less than 6 Hours Per Day (ICD-10-PCS; 2019-03-08)
PROC: 5A1D70Z Performance of Urinary Filtration, Intermittent, Less than 6 Hours Per Day (ICD-10-PCS; 2019-03-10)
DX: A41.9 Sepsis, unspecified organism (principal); J96.00 Acute respiratory failure, unspecified whether with hypoxia or hypercapnia; N17.0 Acute kidney failure with tubular necrosis; R57.9 Shock, unspecified; J86.9 Pyothorax without fistula; G92 Toxic encephalopathy; E43 Unspecified severe protein-calorie malnutrition; J18.1 Lobar pneumonia, unspecified organism; S27.1XXA Traumatic hemothorax, initial encounter; E87.2 Acidosis; D72.821 Monocytosis (symptomatic); E78.5 Hyperlipidemia, unspecified; R74.0 Nonspecific elevation of levels of transaminase and lactic acid dehydrogenase [LDH]; D47.3 Essential (hemorrhagic) thrombocythemia; F09 Unspecified mental disorder due to known physiological condition; D50.0 Iron deficiency anemia secondary to blood loss (chronic); E83.42 Hypomagnesemia; F12.90 Cannabis use, unspecified, uncomplicated; E11.22 Type 2 diabetes mellitus with diabetic chronic kidney disease; E87.1 Hypo-osmolality and hyponatremia; Z53.21 Procedure and treatment not carried out due to patient leaving prior to being seen by health care provider; E87.6 Hypokalemia; S22.42XA Multiple fractures of ribs, left side, initial encounter for closed fracture; G40.909 Epilepsy, unspecified, not intractable, without status epilepticus; I12.9 Hypertensive chronic kidney disease with stage 1 through stage 4 chronic kidney disease, or unspecified chronic kidney disease; N18.9 Chronic kidney disease, unspecified; X58.XXXA Exposure to other specified factors, initial encounter; Y93.89 Activity, other specified; Y92.89 Other specified places as the place of occurrence of the external cause; Y99.8 Other external cause status; Z78.1 Physical restraint status; Z87.820 Personal history of traumatic brain injury; Z68.29 Body mass index [BMI] 29.0-29.9, adult; Z91.011 Allergy to milk products; Z91.018 Allergy to other foods; Z79.899 Other long term (current) drug therapy
CPT/HCPCS: 36415; 36569; 36600; 71045; 71250; 73590; 76937; 80048; 80061; 80165; 80202; 80305; 80320; 82140; 82375; 82550; 82553; 82570; 82805; 82962; 83605; 83735; 84100; 84145; 84300; 84443; 84478; 84484; 85049; 86850; 86900; 86920; 87070; 87075; 88108; 88305; 88312; 92610; 93005; 93306; 93970; 93971; 94002; 94003; 94640; 96365; 96375; 97161; 97164; 97165; 97530; 99291; C1725; C1751; C1752; C1769; C1893; J0171; J0360; J0885; J1200; J1630; J1644; J1650; J1940; J1953; J2060; J2250; J2270; J2405; J2543; J2704; J3010; J3370; J3475; J3480; J3490; J7030; J7040; J7042; J7050; J7060; J7070; J7608; J7611; J7620; P9016; P9021; A4315; G0480

== ENCOUNTER 2019-04-16 15:19 | Emergency (ER) | payer MEDICAID ==
[~2019-04-16] VITALS: Ht 182.9 cm; Wt 100.0 kg
[~2019-04-16 15:19] MED LIST changes: +AMLO2.5T45 MT; +AMLO5TAB88 PO; +DIVAL250 PO; +FAMO20TA8 PO; +FLUC100T42 PO; +FOLI-43 MT; +HYDR100T26 PO; +KEPP500 PO; +LISI10TA5 MT; +QUET50TA PO; +THIA100T72 PO
[2019-04-16] MEDS ORDERED: SODIUM CHLORIDE 0.9% 1,000 ML IV ONE (16:12)
[2019-04-16] MEDS ORDERED: ACETAMINOPHEN 325MG TABLET PO ONE (16:15)
[2019-04-16 16:56] LABS: HEMATOCRIT. 33.5 % (42.0-52.0); HEMOGLOBIN. 11.1 g/dL (14.0-18.0); MEAN CORPUSCULAR HEMOGLOBIN 29.8 pg (28.0-32.0); MEAN CORPUSCULAR VOLUME 90.1 fL (80.0-94.0); MEAN PLATELET VOLUME 9.9 fl (7.4-10.4); PLATELET 242 x1000/uL (130-400); RED BLOOD CELL COUNT 3.72 mill/uL (4.7-6.1)
[2019-04-16 17:00] LABS: CHLORIDE 107 mEq/L (98-107)
[2019-04-16 17:05] LABS: ETHANOL BLOOD < 10 mg/dL
[2019-04-16 17:09] LABS: CARBAMAZEPINE < 0.5 ug/mL (4-12)
[2019-04-16] MEDS ORDERED: LEVETIRACETAM 500MG PREMIX 100 ML IV ONE (17:30)
[2019-04-16] MEDS ORDERED: DIVALPROEX SODIUM 250MG DR TABLET PO ONE (17:30)
[2019-04-16 17:40] LABS: PHENOBARBITAL < 2.1 ug/mL (15.0-40.0)
[2019-04-16 17:57] LABS: PLATELET ESTIMATE NORMAL
[2019-04-16 21:35] VITALS: BP 125/75
== END 2019-04-16 22:22 | disposition home or self-care (01) ==
LOC: ER 15:19
DX: G40.909 Epilepsy, unspecified, not intractable, without status epilepticus (principal); E86.0 Dehydration; M25.552 Pain in left hip; M25.551 Pain in right hip; W05.0XXA Fall from non-moving wheelchair, initial encounter; Y93.89 Activity, other specified; Y92.89 Other specified places as the place of occurrence of the external cause; I10 Essential (primary) hypertension; E11.9 Type 2 diabetes mellitus without complications; G81.94 Hemiplegia, unspecified affecting left nondominant side; Z87.820 Personal history of traumatic brain injury; Z98.890 Other specified postprocedural states; Z99.3 Dependence on wheelchair; Z79.899 Other long term (current) drug therapy
CPT/HCPCS: 36415; 80053; 80156; 80165; 80184; 80185; 80320; 85025; 96361; 96365; 99283; J1953; J7030; Z7610; G0480

== ENCOUNTER 2020-02-15 17:44 | Emergency (ER) | payer MEDICAID ==
[~2020-02-15] VITALS: Ht 177.8 cm; Wt 75.0 kg
[2020-02-15 18:04] VITALS: BP 141/70
== END 2020-02-15 19:47 | disposition left against medical advice (07) ==
LOC: ER 17:44
DX: R68.89 Other general symptoms and signs (principal); Z53.21 Procedure and treatment not carried out due to patient leaving prior to being seen by health care provider

== ENCOUNTER 2020-02-17 05:18 | Emergency (ER) | payer MEDICAID ==
[~2020-02-17] VITALS: Ht 193 cm; Wt 109.0 kg
[2020-02-17] MEDS ORDERED: LOPERAMIDE 2MG/15ML UDC PO PRN (06:30)
[2020-02-17 06:50] VITALS: BP 131/62
== END 2020-02-17 07:07 | disposition home or self-care (01) ==
LOC: ER 05:18
DX: R19.7 Diarrhea, unspecified (principal); R56.9 Unspecified convulsions; Z98.890 Other specified postprocedural states; Z79.899 Other long term (current) drug therapy; Z88.8 Allergy status to other drugs, medicaments and biological substances
CPT/HCPCS: 99283

== ENCOUNTER 2020-03-03 04:26 | Emergency (ER) | payer MEDICAID ==
[~2020-03-03] VITALS: Ht 182.9 cm; Wt 101.0 kg
[2020-03-03 05:14] VITALS: BP 124/74
== END 2020-03-03 05:14 | disposition home or self-care (01) ==
LOC: ER 04:36
DX: Z76.0 Encounter for issue of repeat prescription (principal); I10 Essential (primary) hypertension; Z87.820 Personal history of traumatic brain injury; Z98.890 Other specified postprocedural states
CPT/HCPCS: 99283

== ENCOUNTER 2020-03-07 02:06 | Emergency (ER) | payer MEDICAID ==
[~2020-03-07] VITALS: Ht 195.6 cm; Wt 96.0 kg
[2020-03-07 02:39] VITALS: BP 114/69
[2020-03-07] MEDS ORDERED: MAGNESIUM CITRATE 300ML SOLUTION PO ONE (03:15)
== END 2020-03-07 03:28 | disposition home or self-care (01) ==
LOC: ER 02:06
DX: K59.00 Constipation, unspecified (principal); I10 Essential (primary) hypertension; Z88.8 Allergy status to other drugs, medicaments and biological substances; Z79.899 Other long term (current) drug therapy
CPT/HCPCS: 99282

== ENCOUNTER 2020-03-16 17:19 | Inpatient (IN) | payer MEDICAID ==
[~2020-03-16] VITALS: Ht 195.6 cm; Wt 95.3 kg
[2020-03-16 21:54] LABS: BASOPHILS % 0.4 % (0.0-2.0); EOSINOPHILS % 0.2 % (0.0-5.0); HEMATOCRIT. 44.6 % (42.0-52.0); HEMOGLOBIN. 15.2 g/dL (14.0-18.0); LYMPHOCYTES % 9.6 % (20.0-50.0); MEAN CORPUSCULAR HEMOGLOBIN 31.2 pg (28.0-32.0); MEAN CORPUSCULAR VOLUME 91.5 fL (80.0-94.0); MEAN PLATELET VOLUME 11.3 fl (7.4-10.4); NEUTROPHILS % 85.8 % (40.0-76.0); PLATELET 171 x1000/uL (130-400); RED BLOOD CELL COUNT 4.87 mill/uL (4.7-6.1)
[2020-03-16 22:05] LABS: CHLORIDE 105 mEq/L (98-107)
[2020-03-16 22:07] LABS: INR 1.1; PROTHROMBIN TIME 11.1 sec (9.6-11.0)
[2020-03-16 22:17] LABS: ETHANOL BLOOD < 10 mg/dL
[2020-03-16 22:22] LABS: VALPROIC ACID < 3.0 ug/mL (50-100)
[2020-03-17] MEDS ORDERED: DIVALPROEX SODIUM 250MG DR TABLET PO SCH (08:00)
[2020-03-17] MEDS ORDERED: LEVE1000 MT (08:13)
[2020-03-17] MEDS ORDERED: DIVA250T4 MT (08:13)
[2020-03-17] MEDS ORDERED: VALP250C3 MT (08:13)
[2020-03-17] MEDS ORDERED: KEPP500 PO (08:13)
[2020-03-17 09:00] VITALS: BP 140/74
[2020-03-17] MEDS ORDERED: LEVETIRACETAM 500MG TABLET PO SCH (09:00)
[2020-03-17 09:55] VITALS: BP 140/74
[2020-03-17] MEDS ORDERED: PHENYTOIN SODIUM EXTENDED 100MG CAPSULE PO SCH (21:00)
== END 2020-03-17 17:34 | disposition home or self-care (01) | DRG 53 ==
LOC: ER 17:19 → 8WST 23:52 → EDBEDREQSVC 23:57 → EDBEDREQTM 23:57 → EDBEDREQ 23:57 → ENRESERV 03-17 07:29
PROVIDERS: ADMIT Internal Medicine; ATTEND Internal Medicine
DX: G40.909 Epilepsy, unspecified, not intractable, without status epilepticus (principal); F17.200 Nicotine dependence, unspecified, uncomplicated; I10 Essential (primary) hypertension; Z88.8 Allergy status to other drugs, medicaments and biological substances; Z79.899 Other long term (current) drug therapy; F12.90 Cannabis use, unspecified, uncomplicated; E87.6 Hypokalemia
CPT/HCPCS: 36415; 71045; 80053; 80165; 80185; 80320; 83605; 85025; 99285; G0480

== ENCOUNTER 2020-03-28 01:25 | Emergency (ER) | payer MEDICAID ==
[~2020-03-28] VITALS: Ht 193 cm; Wt 101.3 kg
[~2020-03-28 01:25] MED LIST changes: +DIVA250T4 MT; +LEVE1000 MT; +VALP250C3 MT
[2020-03-28 01:50] VITALS: BP 159/78
[2020-03-28] MEDS ORDERED: TETANUS, DIPHTHERIA, PERTUSSIS VAC/PF 0.5ML (>7YR OLD) IM ONE (02:15)
== END 2020-03-28 02:30 | disposition home or self-care (01) ==
LOC: ER 01:25
DX: S00.412A Abrasion of left ear, initial encounter (principal); Z88.8 Allergy status to other drugs, medicaments and biological substances; Z79.899 Other long term (current) drug therapy; X58.XXXA Exposure to other specified factors, initial encounter; Y93.89 Activity, other specified; Y92.89 Other specified places as the place of occurrence of the external cause; Y99.8 Other external cause status
CPT/HCPCS: 90471; 90715; 99283

== ENCOUNTER 2020-04-03 02:30 | Emergency (ER) | payer MEDICAID ==
[~2020-04-03] VITALS: Ht 190.5 cm; Wt 92.0 kg
[2020-04-03 03:32] VITALS: BP 112/64
== END 2020-04-03 04:20 | disposition home or self-care (01) ==
LOC: ER 02:30
DX: Z76.0 Encounter for issue of repeat prescription (principal); G40.909 Epilepsy, unspecified, not intractable, without status epilepticus; I10 Essential (primary) hypertension; Z87.828 Personal history of other (healed) physical injury and trauma; Z88.8 Allergy status to other drugs, medicaments and biological substances; Z91.018 Allergy to other foods
CPT/HCPCS: 99283

== ENCOUNTER 2020-04-18 01:59 | Emergency (ER) | payer MEDICAID ==
[~2020-04-18] VITALS: Ht 188 cm; Wt 98.2 kg
[2020-04-18 02:01] VITALS: BP 119/63
== END 2020-04-18 03:03 | disposition home or self-care (01) ==
LOC: ER 01:59
DX: G40.909 Epilepsy, unspecified, not intractable, without status epilepticus (principal); I10 Essential (primary) hypertension; Z76.0 Encounter for issue of repeat prescription; Z88.8 Allergy status to other drugs, medicaments and biological substances; Z79.899 Other long term (current) drug therapy; Z98.890 Other specified postprocedural states
CPT/HCPCS: 99283

== ENCOUNTER 2020-05-06 01:12 | Emergency (ER) | payer MEDICAID ==
[~2020-05-06] VITALS: Ht 195.6 cm; Wt 97.0 kg
[2020-05-06 02:14] VITALS: BP 120/60
[2020-05-06] MEDS ORDERED: ACETAMINOPHEN 325MG TABLET PO ONE (02:30)
[2020-05-06] MEDS ORDERED: BACITRACIN ZINC OINT UDPKT TOP ONE (02:45)
== END 2020-05-06 05:09 | disposition home or self-care (01) ==
LOC: ER 01:12
DX: S80.821A Blister (nonthermal), right lower leg, initial encounter (principal); Z98.890 Other specified postprocedural states; Z79.899 Other long term (current) drug therapy; Z88.6 Allergy status to analgesic agent; Z88.8 Allergy status to other drugs, medicaments and biological substances; X58.XXXA Exposure to other specified factors, initial encounter; Y93.89 Activity, other specified; Y92.89 Other specified places as the place of occurrence of the external cause; Y99.8 Other external cause status
CPT/HCPCS: 20610; 99283

== ENCOUNTER 2020-05-11 07:54 | Emergency (ER) | payer MEDICAID ==
[~2020-05-11] VITALS: Ht 170.2 cm; Wt 56.0 kg
[2020-05-11 08:40] VITALS: BP 129/72
== END 2020-05-11 09:55 | disposition home or self-care (01) ==
LOC: ER 07:54
DX: K59.00 Constipation, unspecified (principal); Z79.899 Other long term (current) drug therapy
CPT/HCPCS: 99282

== ENCOUNTER 2020-07-01 03:03 | Emergency (ER) | payer MEDICAID ==
[~2020-07-01] VITALS: Ht 195.6 cm; Wt 98.0 kg
[2020-07-01 03:47] VITALS: BP 131/74
== END 2020-07-01 04:01 | disposition home or self-care (01) ==
LOC: ER 03:03
DX: Z76.0 Encounter for issue of repeat prescription (principal); I10 Essential (primary) hypertension; Z79.899 Other long term (current) drug therapy; Z98.890 Other specified postprocedural states
CPT/HCPCS: 99283

== ENCOUNTER 2020-07-10 06:59 | Emergency (ER) | payer MEDICAID ==
[~2020-07-10] VITALS: Ht 195.6 cm; Wt 98.0 kg
[2020-07-10 07:00] VITALS: BP 142/70
== END 2020-07-10 07:34 | disposition home or self-care (01) ==
LOC: ER 06:59
DX: Z76.0 Encounter for issue of repeat prescription (principal); M62.838 Other muscle spasm; G40.909 Epilepsy, unspecified, not intractable, without status epilepticus; I10 Essential (primary) hypertension; Z86.718 Personal history of other venous thrombosis and embolism; Z79.01 Long term (current) use of anticoagulants; Z88.8 Allergy status to other drugs, medicaments and biological substances; Z91.018 Allergy to other foods
CPT/HCPCS: 99283

== ENCOUNTER 2020-08-02 03:58 | Emergency (ER) | payer MEDICAID ==
[~2020-08-02] VITALS: Ht 193 cm; Wt 98.0 kg
[2020-08-02 04:25] VITALS: BP 155/84
== END 2020-08-02 06:20 | disposition home or self-care (01) ==
LOC: ER 03:58
DX: R60.0 Localized edema (principal); I10 Essential (primary) hypertension; Z86.718 Personal history of other venous thrombosis and embolism
CPT/HCPCS: 93970; 99285

== ENCOUNTER 2020-09-18 20:26 | Emergency (ER) | payer MEDICAID ==
[~2020-09-18] VITALS: Ht 195.6 cm; Wt 98.0 kg
[2020-09-19 00:21] LABS: BASOPHILS % 0.7 % (0.0-2.0); EOSINOPHILS % 5.9 % (0.0-5.0); HEMATOCRIT. 44.1 % (42.0-52.0); HEMOGLOBIN. 14.7 g/dL (14.0-18.0); LYMPHOCYTES % 32.9 % (20.0-50.0); MEAN CORPUSCULAR HEMOGLOBIN 30.7 pg (28.0-32.0); MEAN CORPUSCULAR VOLUME 92.2 fL (80.0-94.0); MEAN PLATELET VOLUME 10.3 fl (7.4-10.4); MONOCYTES % 10.4 % (2.0-8.0); NEUTROPHILS % 50.1 % (40.0-76.0); PLATELET 222 x1000/uL (130-400); RED BLOOD CELL COUNT 4.79 mill/uL (4.7-6.1); RED CELL DISTRIBUTION WIDTH 13.8 % (11.6-14.6)
[2020-09-19 00:22] LABS: CHLORIDE 108 mEq/L (98-107)
[2020-09-19 01:53] VITALS: BP 140/79
== END 2020-09-19 02:18 | disposition home or self-care (01) ==
LOC: ER 20:26
DX: I87.8 Other specified disorders of veins (principal); I10 Essential (primary) hypertension; Z88.8 Allergy status to other drugs, medicaments and biological substances; Z79.899 Other long term (current) drug therapy
CPT/HCPCS: 36415; 80053; 85025; 93971; 99284

== ENCOUNTER 2020-09-22 02:15 | Emergency (ER) | payer MEDICAID ==
[~2020-09-22] VITALS: Ht 180.3 cm; Wt 86.0 kg
[~2020-09-22 02:15] MED LIST changes: +LISI10TA26 MT; -LISI10TA5 MT
[2020-09-22 02:47] VITALS: BP 153/95
== END 2020-09-22 02:51 | disposition home or self-care (01) ==
LOC: ER 02:15
DX: I87.8 Other specified disorders of veins (principal); Z59.0 Homelessness
CPT/HCPCS: 99281

== ENCOUNTER 2020-10-07 03:57 | Emergency (ER) | payer MEDICAID ==
[~2020-10-07] VITALS: Ht 195.6 cm; Wt 98.0 kg
[~2020-10-07 03:57] MED LIST changes: -LISI10TA26 MT; +LISI10TA5 MT
[2020-10-07 04:26] VITALS: BP 141/84
== END 2020-10-07 04:28 | disposition home or self-care (01) ==
LOC: ER 03:57
DX: I10 Essential (primary) hypertension (principal); Z79.899 Other long term (current) drug therapy; Z48.01 Encounter for change or removal of surgical wound dressing; R56.9 Unspecified convulsions
CPT/HCPCS: 99281

== ENCOUNTER 2020-10-21 05:48 | Emergency (ER) | payer MEDICAID ==
[~2020-10-21] VITALS: Ht 195.6 cm; Wt 99.0 kg
[2020-10-21] MEDS ORDERED: HYDROCODONE/ACETAMINOPHEN 5/325MG TABLET PO ONE (07:00)
[2020-10-21 07:10] VITALS: BP 156/87
[2020-10-21] MEDS ORDERED: BACITRACIN 15GM TUBE TOP ONE (08:45)
== END 2020-10-21 09:59 | disposition home or self-care (01) ==
LOC: ER 05:48
DX: T14.8XXA Other injury of unspecified body region, initial encounter (principal); X58.XXXA Exposure to other specified factors, initial encounter; Y93.89 Activity, other specified; Y92.89 Other specified places as the place of occurrence of the external cause; Y99.8 Other external cause status; Z86.73 Personal history of transient ischemic attack (TIA), and cerebral infarction without residual deficits; Z79.899 Other long term (current) drug therapy
CPT/HCPCS: 73590; 73610; 99284

== ENCOUNTER 2020-10-21 22:14 | Emergency (ER) | payer MEDICAID ==
[~2020-10-21] VITALS: Ht 195.6 cm; Wt 98.0 kg
[2020-10-22] MEDS ORDERED: HYDROCODONE/ACETAMINOPHEN 5/325MG TABLET PO ONE
[2020-10-22] MEDS ORDERED: TETANUS, DIPHTHERIA, PERTUSSIS VAC/PF 0.5ML (>7YR OLD) IM ONE
[2020-10-22] MEDS ORDERED: CLINDAMYCIN HCL 150MG CAPSULE PO SCH
[2020-10-22 00:09] VITALS: BP 159/91
== END 2020-10-22 00:52 | disposition home or self-care (01) ==
LOC: ER 22:14
DX: L03.116 Cellulitis of left lower limb (principal); R03.0 Elevated blood-pressure reading, without diagnosis of hypertension; Z91.81 History of falling; I73.9 Peripheral vascular disease, unspecified; I69.954 Hemiplegia and hemiparesis following unspecified cerebrovascular disease affecting left non-dominant side; G40.909 Epilepsy, unspecified, not intractable, without status epilepticus; Z99.3 Dependence on wheelchair; Z87.820 Personal history of traumatic brain injury; Z23 Encounter for immunization; Z79.899 Other long term (current) drug therapy
CPT/HCPCS: 90471; 90715; 99283; Z7610

== ENCOUNTER 2020-10-23 03:27 | Emergency (ER) | payer MEDICAID ==
[~2020-10-23] VITALS: Ht 195.6 cm; Wt 99.0 kg
[2020-10-23 03:49] VITALS: BP 157/83
[2020-10-23] MEDS ORDERED: ACETAMINOPHEN 325MG TABLET PO ONE (04:00)
== END 2020-10-23 05:13 | disposition home or self-care (01) ==
LOC: ER 03:27
DX: Z48.00 Encounter for change or removal of nonsurgical wound dressing (principal); I87.2 Venous insufficiency (chronic) (peripheral); I69.354 Hemiplegia and hemiparesis following cerebral infarction affecting left non-dominant side; Z99.3 Dependence on wheelchair; G40.909 Epilepsy, unspecified, not intractable, without status epilepticus
CPT/HCPCS: 99281

== ENCOUNTER 2020-10-25 01:56 | Emergency (ER) | payer MEDICAID ==
[~2020-10-25] VITALS: Ht 177.8 cm; Wt 91.0 kg
[2020-10-25 02:30] VITALS: BP 157/91
[2020-10-25] MEDS ORDERED: ACETAMINOPHEN WITH CODEINE 300/30MG TABLET PO ONE (02:30)
== END 2020-10-25 04:38 | disposition home or self-care (01) ==
LOC: ER 01:56
DX: I87.8 Other specified disorders of veins (principal); I10 Essential (primary) hypertension; I69.954 Hemiplegia and hemiparesis following unspecified cerebrovascular disease affecting left non-dominant side; Z79.899 Other long term (current) drug therapy; Z88.8 Allergy status to other drugs, medicaments and biological substances
CPT/HCPCS: 93970; 99284

== ENCOUNTER 2020-10-25 23:28 | Emergency (ER) | payer MEDICAID ==
[~2020-10-25] VITALS: Ht 182.9 cm; Wt 95.0 kg
[2020-10-26] MEDS ORDERED: ACETAMINOPHEN 325MG TABLET PO ONE (01:30)
[2020-10-26 02:45] VITALS: BP 159/94
== END 2020-10-26 02:51 | disposition home or self-care (01) ==
LOC: ER 23:28
DX: I87.2 Venous insufficiency (chronic) (peripheral) (principal); F17.200 Nicotine dependence, unspecified, uncomplicated; I10 Essential (primary) hypertension; Z88.8 Allergy status to other drugs, medicaments and biological substances; Z79.899 Other long term (current) drug therapy
CPT/HCPCS: 99282

== ENCOUNTER 2020-11-07 15:41 | Emergency (ER) | payer MEDICAID ==
[~2020-11-07] VITALS: Ht 182.9 cm; Wt 109.0 kg
[2020-11-07] MEDS ORDERED: LEVETIRACETAM 1000MG PREMIX 100 ML IV ONE (16:00)
[2020-11-07 16:41] LABS: BASOPHILS % 0.5 % (0.0-2.0); EOSINOPHILS % 1.7 % (0.0-5.0); HEMATOCRIT. 48.9 % (42.0-52.0); HEMOGLOBIN. 16.1 g/dL (14.0-18.0); LYMPHOCYTES % 16.8 % (20.0-50.0); MEAN CORPUSCULAR HEMOGLOBIN 30.5 pg (28.0-32.0); MEAN CORPUSCULAR VOLUME 92.6 fL (80.0-94.0); MEAN PLATELET VOLUME 10.7 fl (7.4-10.4); MONOCYTES % 5.1 % (2.0-8.0); NEUTROPHILS % 75.9 % (40.0-76.0); PLATELET 166 x1000/uL (130-400); RED BLOOD CELL COUNT 5.28 mill/uL (4.7-6.1); RED CELL DISTRIBUTION WIDTH 13.9 % (11.6-14.6)
[2020-11-07 17:04] LABS: CHLORIDE 106 mEq/L (98-107)
[2020-11-07 17:08] LABS: ETHANOL BLOOD < 10 mg/dL
[2020-11-07] MEDS ORDERED: LORAZEPAM 2MG/ML CPJ IV ONE (18:15)
[2020-11-07 19:30] VITALS: BP 111/57
[2020-11-07] MEDS ORDERED: KEPP500 MT (20:31)
== END 2020-11-07 20:10 | disposition home or self-care (01) ==
LOC: ER 15:41
DX: R56.9 Unspecified convulsions (principal); M79.18 Myalgia, other site; R42 Dizziness and giddiness; I10 Essential (primary) hypertension; Z79.899 Other long term (current) drug therapy
CPT/HCPCS: 36415; 80053; 80320; 85025; 93005; 96365; 96375; 99284; J1953; J2060; Z7610; G0480

== ENCOUNTER 2020-11-13 03:58 | Emergency (ER) | payer MEDICAID ==
[~2020-11-13] VITALS: Ht 193 cm; Wt 94.0 kg
[~2020-11-13 03:58] MED LIST changes: +KEPP500 MT; +LISI10TA26 MT; -LISI10TA5 MT
[2020-11-13 04:08] VITALS: BP 144/97
== END 2020-11-13 04:35 | disposition home or self-care (01) ==
LOC: ER 03:58
DX: Z76.0 Encounter for issue of repeat prescription (principal); G40.909 Epilepsy, unspecified, not intractable, without status epilepticus; Z98.890 Other specified postprocedural states; Z79.899 Other long term (current) drug therapy; Z88.8 Allergy status to other drugs, medicaments and biological substances
CPT/HCPCS: 99281; 99283

== ENCOUNTER 2020-11-22 03:00 | Emergency (ER) | payer MEDICAID ==
[~2020-11-22] VITALS: Ht 193 cm; Wt 98.0 kg
[2020-11-22 03:03] VITALS: BP 149/84
[2020-11-22] MEDS ORDERED: IBUPROFEN 600MG TABLET PO ONE (03:45)
== END 2020-11-22 03:50 | disposition home or self-care (01) ==
LOC: ER 03:00
DX: Z48.00 Encounter for change or removal of nonsurgical wound dressing (principal); M79.604 Pain in right leg; I87.8 Other specified disorders of veins; R03.0 Elevated blood-pressure reading, without diagnosis of hypertension; G40.909 Epilepsy, unspecified, not intractable, without status epilepticus; Z79.899 Other long term (current) drug therapy
CPT/HCPCS: 99282

== ENCOUNTER 2021-01-23 04:38 | Emergency (ER) | payer MEDICAID, OTHER ==
[~2021-01-23] VITALS: Ht 193 cm; Wt 85.0 kg
[2021-01-23 05:32] VITALS: BP 154/89
== END 2021-01-23 05:50 | disposition left against medical advice (07) ==
LOC: ER 04:38
DX: M79.89 Other specified soft tissue disorders (principal); Z53.21 Procedure and treatment not carried out due to patient leaving prior to being seen by health care provider

== ENCOUNTER 2021-02-12 20:45 | Emergency (ER) | payer MEDICAID ==
[~2021-02-12] VITALS: Ht 188 cm; Wt 91.0 kg
[2021-02-13] MEDS ORDERED: PHEN100C4 PO (02:25)
[2021-02-13 02:30] VITALS: BP 147/82
== END 2021-02-13 02:42 | disposition home or self-care (01) ==
LOC: ER 20:45
DX: Z76.0 Encounter for issue of repeat prescription (principal); E11.9 Type 2 diabetes mellitus without complications; I10 Essential (primary) hypertension; Z79.899 Other long term (current) drug therapy; Z88.8 Allergy status to other drugs, medicaments and biological substances; Z86.59 Personal history of other mental and behavioral disorders
CPT/HCPCS: 99283

== ENCOUNTER 2021-02-19 04:29 | Emergency (ER) | payer MEDICAID ==
[~2021-02-19] VITALS: Ht 193 cm; Wt 105.0 kg
[2021-02-19 04:36] VITALS: BP 164/66
== END 2021-02-19 07:23 | disposition home or self-care (01) ==
LOC: ER 04:29
DX: R00.2 Palpitations (principal); F41.0 Panic disorder [episodic paroxysmal anxiety]; F12.10 Cannabis abuse, uncomplicated; G40.909 Epilepsy, unspecified, not intractable, without status epilepticus; I69.354 Hemiplegia and hemiparesis following cerebral infarction affecting left non-dominant side; Z91.018 Allergy to other foods; Z88.5 Allergy status to narcotic agent
CPT/HCPCS: 93005; 99283

== ENCOUNTER 2021-04-27 07:55 | Inpatient (IN) | payer MEDICAID ==
[~2021-04-27] VITALS: Ht 193 cm; Wt 100.2 kg
[2021-04-27] VITALS (19 sets, daily range): BP systolic 99–134; BP diastolic 62–85
[2021-04-27 08:45] LABS: BG BASE EXCESS -11.9 mmol/L (-2.0-2.0); BG CARBOXYHEMOGLOBIN 1.5 % (0.5-1.5); BG DEOXYHEMOGLOBIN 25.9 % (0.0-5.0); BG FRACTION INSPIRED OXYGEN 100; BG HCO3 ACT 16.5 mmol/L (22.0-26.0); BG METHEMOGLOBIN 0.2 % (0.0-1.5); BG OXYGEN SATURATION 73.7 % (92.0-98.5); BG OXYHEMOGLOBIN 72.4 % (94.0-97.0); BG PCO2 46.2 mmHg (35.0-45.0); BG PH 7.171 (7.350-7.450); BG PO2 47.6 mmHg (75.0-100.0); BG SAMPLE SITE RIGHT BRACHIAL; BG TOTAL HEMOGLOBIN 17.7 g/dL (12.0-18.0); BG VENT MODE MASK - NRB
[2021-04-27] MEDS ORDERED: LEVETIRACETAM 1000MG PREMIX 100 ML IV ONE (08:45)
[2021-04-27] MEDS ORDERED: ACETAMINOPHEN 650MG SUPP PR ONE (08:45)
[2021-04-27] MEDS ORDERED: ADENOSINE 3 MG/ML 2ML VIAL IV ONE (08:45)
[2021-04-27] MEDS ORDERED: LORAZEPAM 2MG/ML CPJ IV ONE (08:45)
[2021-04-27 08:59] LABS: CHLORIDE 107 mEq/L (98-107)
[2021-04-27 09:00] LABS: BASOPHILS % 0.2 % (0.0-2.0); EOSINOPHILS % 0.4 % (0.0-5.0); HEMATOCRIT. 48.3 % (42.0-52.0); HEMOGLOBIN. 16.4 g/dL (14.0-18.0); LYMPHOCYTES % 8.6 % (20.0-50.0); MEAN CORPUSCULAR HEMOGLOBIN 31.8 pg (28.0-32.0); MEAN CORPUSCULAR VOLUME 93.7 fL (80.0-94.0); MEAN PLATELET VOLUME 11.5 fl (7.4-10.4); MONOCYTES % 8.6 % (2.0-8.0); NEUTROPHILS % 82.2 % (40.0-76.0); PLATELET 202 x1000/uL (130-400); RED BLOOD CELL COUNT 5.16 mill/uL (4.7-6.1); RED CELL DISTRIBUTION WIDTH 13.1 % (11.6-14.6)
[2021-04-27] MEDS ORDERED: MIDAZOLAM HCL 100 MG in DEXT 5% WATER 80 ML IV ONE (09:00)
[2021-04-27] MEDS ORDERED: SUCCINYLCHOLINE CHLORIDE 200MG/10ML IV ONE (09:00)
[2021-04-27] MEDS ORDERED: ETOMIDATE 2MG/ML 10ML VIAL IV ONE (09:00)
[2021-04-27 09:03] LABS: D-DIMER 1.23 mg/L FEU (<0.50); ETHANOL BLOOD < 10 mg/dL
[2021-04-27 09:05] LABS: C REACTIVE PROTEIN QUANT 9.2 mg/L (0.0-3.0)
[2021-04-27 09:08] LABS: CREATINE KINASE 289 IU/L (39-308)
[2021-04-27] MEDS ORDERED: MIDAZOLAM HCL 100 MG in SODIUM CHLORIDE 0.9% 100 ML IV PRN (09:15)
[2021-04-27] MEDS ORDERED: FENTANYL CITRATE 2,500 MCG in SODIUM CHLORIDE 0.9% 200 ML IV PRN (09:15)
[2021-04-27 09:23] LABS: CARBAMAZEPINE < 0.5 ug/mL (4-12); PHENOBARBITAL < 2.1 ug/mL (15.0-40.0)
[2021-04-27] MEDS ORDERED: FENTANYL CITRATE/PF 2,500 MCG in SODIUM CHLORIDE 0.9% 200 ML IV STA (09:39)
[2021-04-27] MEDS ORDERED: FENTANYL CITRATE/PF 2,500 MCG in SODIUM CHLORIDE 0.9% 200 ML IV SCH (10:00)
[2021-04-27 10:43] LABS: BG BASE EXCESS 0.9 mmol/L (-2.0-2.0); BG CARBOXYHEMOGLOBIN 0.6 % (0.5-1.5); BG DEOXYHEMOGLOBIN 3.1 % (0.0-5.0); BG FRACTION INSPIRED OXYGEN 100; BG HCO3 ACT 26.5 mmol/L (22.0-26.0); BG METHEMOGLOBIN 0.6 % (0.0-1.5); BG OXYGEN SATURATION 96.9 % (92.0-98.5); BG OXYHEMOGLOBIN 95.7 % (94.0-97.0); BG PCO2 45.4 mmHg (35.0-45.0); BG PH 7.384 (7.350-7.450); BG PO2 92.6 mmHg (75.0-100.0); BG SAMPLE SITE RIGHT RADIAL; BG TOTAL HEMOGLOBIN 16.1 g/dL (12.0-18.0); BG VENT MODE VENT - AC
[2021-04-27] MEDS: ENOXAPARIN 40MG/0.4ML SYR SUBCUT SCH (12:30)
[2021-04-27] MEDS ORDERED: ACETAMINOPHEN 650MG SUPP PR PRN (12:30)
[2021-04-27] MEDS: PANTOPRAZOLE SODIUM 40 MG/VIAL IV SCH (12:30)
[2021-04-27] MEDS ORDERED: ONDANSETRON HCL 4MG/2ML INJ IV PRN (12:30)
[2021-04-27] MEDS ORDERED: PIPERACILLIN/TAZOBACTAM 3.375 G in DEXTROSE 5% WATER 50 ML IV SCH (12:30)
[2021-04-27] MEDS ORDERED: PIPERACILLIN/TAZ 3.375G PREMIX 50 ML IV SCH (13:00)
[2021-04-27] MEDS ORDERED: VANCOMYCIN 1,500 MG in DEXT 5% WATER 250 ML IV SCH (14:00)
[2021-04-27] MEDS ORDERED: PHENYTOIN SODIUM 1,000 MG in SODIUM CHLORIDE 0.9% 100 ML IV ONE (14:30)
[2021-04-27] MEDS ORDERED: IPRATROPIUM/ALBUTEROL 0.5-3(2.5)MG/3ML NEB HHN PRN (16:30)
[2021-04-27] MEDS: MIDAZOLAM HCL 100 MG in SODIUM CHLORIDE 0.9% 80 ML IV PRN (16:49)
[2021-04-27] MEDS: DEXT 5%/0.45% NACL 1000ML 1,000 ML IV SCH (17:33)
[2021-04-27] MEDS: FENTANYL CITRATE/PF 2,500 MCG in SODIUM CHLORIDE 0.9% 200 ML IV PRN (18:46)
[2021-04-27 19:21] LABS: CLARITY URINE TURBID (CLEAR); COLOR URINE ORANGE (YELLOW); KETONES URINE TRACE (NEGATIVE); LEUKOCYTE ESTERASE URINE 1+ (NEGATIVE); NITRITE URINE NEGATIVE (NEGATIVE); OCCULT BLOOD URINE 3+ (NEGATIVE); PROTEIN URINE 2+ (NEGATIVE); SPECIFIC GRAVITY URINE 1.008 (1.005-1.030); UROBILINOGEN URINE 0.2 E.U./dL (0.2-1.0)
[2021-04-27] MEDS ORDERED: VANCOMYCIN 1250MG in DEXTROSE 5% WATER 250ML IV SCH (21:00)
[2021-04-27] MEDS: IPRATROPIUM/ALBUTEROL 0.5-3(2.5)MG/3ML NEB HHN SCH (21:01)
[2021-04-27 21:41] LABS: *BARBITURATES SCREEN URINE NEGATIVE (NEGATIVE)
[2021-04-27 21:42] LABS: *AMPHETAMINES SCREEN URINE NEGATIVE (NEGATIVE); *BENZODIAZEPINES SCREEN URINE PRESUMTIVE POSITIVE (NEGATIVE); *COCAINE SCREEN URINE NEGATIVE (NEGATIVE); CANNABINOID URINE SCREEN PRESUMTIVE POSITIVE (NEGATIVE); METHADONE URINE SCREEN NEGATIVE (NEGATIVE); OPIATES URINE SCREEN NEGATIVE (NEGATIVE); PHENCYCLIDINE URINE SCREEN NEGATIVE (NEGATIVE)
[2021-04-27] MEDS: VANCOMYCIN 1250MG in DEXTROSE 5% WATER 250ML IV SCH (21:42)
[2021-04-27] MEDS: PIPERACILLIN/TAZOBACTAM 3.375G in DEXT 5% WATER 50ML IV SCH (21:42)
[2021-04-27] MEDS ORDERED: VANCOMYCIN 1 G PREMIX 200 ML IV SCH (22:00)
[2021-04-28] VITALS (42 sets, daily range): BP systolic 99–145; BP diastolic 60–107
[2021-04-28] MEDS: IPRATROPIUM/ALBUTEROL 0.5-3(2.5)MG/3ML NEB HHN SCH ×4 (01:29→20:44)
[2021-04-28] MEDS: DEXT 5%/0.45% NACL 1000ML 1,000 ML IV SCH ×2 (03:19→17:58)
[2021-04-28] MEDS: MIDAZOLAM HCL 100 MG in SODIUM CHLORIDE 0.9% 80 ML IV PRN ×2 (03:31→16:59)
[2021-04-28] MEDS: PIPERACILLIN/TAZOBACTAM 3.375G in DEXT 5% WATER 50ML IV SCH ×4 (05:43→23:04)
[2021-04-28] MEDS: FENTANYL CITRATE/PF 2,500 MCG in SODIUM CHLORIDE 0.9% 200 ML IV PRN ×2 (06:47→16:59)
[2021-04-28 06:56] LABS: HEMATOCRIT. 42.9 % (42.0-52.0); HEMOGLOBIN. 14.4 g/dL (14.0-18.0); MEAN CORPUSCULAR HEMOGLOBIN 31.2 pg (28.0-32.0); MEAN CORPUSCULAR VOLUME 92.8 fL (80.0-94.0); MEAN PLATELET VOLUME 10.5 fl (7.4-10.4); PLATELET 152 x1000/uL (130-400); RED BLOOD CELL COUNT 4.63 mill/uL (4.7-6.1); RED CELL DISTRIBUTION WIDTH 13.3 % (11.6-14.6)
[2021-04-28 07:14] LABS: CHLORIDE 109 mEq/L (98-107)
[2021-04-28 08:51] LABS: BG CARBOXYHEMOGLOBIN 0.5 % (0.5-1.5); BG DEOXYHEMOGLOBIN 0.4 % (0.0-5.0); BG FRACTION INSPIRED OXYGEN 90; BG HCO3 ACT 27.6 mmol/L (22.0-26.0); BG METHEMOGLOBIN 0.4 % (0.0-1.5); BG OXYGEN SATURATION 99.6 % (92.0-98.5); BG OXYHEMOGLOBIN 98.7 % (94.0-97.0); BG PCO2 51.2 mmHg (35.0-45.0); BG PH 7.349 (7.350-7.450); BG SAMPLE SITE RIGHT BRACHIAL; BG TOTAL HEMOGLOBIN 15.3 g/dL (12.0-18.0); BG VENT MODE VENT - SIMV
[2021-04-28] MEDS: PANTOPRAZOLE SODIUM 40 MG/VIAL IV SCH (09:40)
[2021-04-28] MEDS: VANCOMYCIN 1250MG in DEXTROSE 5% WATER 250ML IV SCH (10:09)
[2021-04-28] MEDS: LEVETIRACETAM 500MG PREMIX 100 ML IV SCH ×2 (11:40→21:10)
[2021-04-28] MEDS: ENOXAPARIN 40MG/0.4ML SYR SUBCUT SCH (12:00)
[2021-04-28] MEDS ORDERED: LIDOCAINE HCL 1% 20ML VIAL (Pyxis) INJ ONE (14:03)
[2021-04-28 15:25] LABS: PLATELET ESTIMATE NORMAL
[2021-04-29] VITALS (35 sets, daily range): BP systolic 104–139; BP diastolic 64–86
[2021-04-29] MEDS: IPRATROPIUM/ALBUTEROL 0.5-3(2.5)MG/3ML NEB HHN SCH ×4 (01:50→20:25)
[2021-04-29] MEDS: FENTANYL CITRATE/PF 2,500 MCG in SODIUM CHLORIDE 0.9% 200 ML IV PRN ×2 (04:04→15:21)
[2021-04-29] MEDS: DEXT 5%/0.45% NACL 1000ML 1,000 ML IV SCH ×2 (04:05→18:04)
[2021-04-29] MEDS: PIPERACILLIN/TAZOBACTAM 3.375G in DEXT 5% WATER 50ML IV SCH ×2 (05:00→12:19)
[2021-04-29] MEDS: MIDAZOLAM HCL 100 MG in SODIUM CHLORIDE 0.9% 80 ML IV PRN ×2 (06:28→19:00)
[2021-04-29 07:19] LABS: BASOPHILS % 0.4 % (0.0-2.0); EOSINOPHILS % 2.8 % (0.0-5.0); HEMOGLOBIN. 13.9 g/dL (14.0-18.0); LYMPHOCYTES % 7.5 % (20.0-50.0); MEAN CORPUSCULAR HEMOGLOBIN 31.4 pg (28.0-32.0); MEAN CORPUSCULAR VOLUME 92.8 fL (80.0-94.0); MEAN PLATELET VOLUME 10.6 fl (7.4-10.4); MONOCYTES % 10.8 % (2.0-8.0); NEUTROPHILS % 78.5 % (40.0-76.0); PLATELET 116 x1000/uL (130-400); RED BLOOD CELL COUNT 4.41 mill/uL (4.7-6.1); RED CELL DISTRIBUTION WIDTH 13.2 % (11.6-14.6)
[2021-04-29] MEDS: PANTOPRAZOLE SODIUM 40 MG/VIAL IV SCH (08:00)
[2021-04-29] MEDS: LEVETIRACETAM 500MG PREMIX 100 ML IV SCH ×2 (08:00→19:54)
[2021-04-29 08:30] LABS: BG CARBOXYHEMOGLOBIN 0.5 % (0.5-1.5); BG DEOXYHEMOGLOBIN 7.1 % (0.0-5.0); BG FRACTION INSPIRED OXYGEN 50; BG HCO3 ACT 27.6 mmol/L (22.0-26.0); BG METHEMOGLOBIN 0.3 % (0.0-1.5); BG OXYGEN SATURATION 92.8 % (92.0-98.5); BG OXYHEMOGLOBIN 92.1 % (94.0-97.0); BG PH 7.303 (7.350-7.450); BG PO2 67.4 mmHg (75.0-100.0); BG SAMPLE SITE RIGHT RADIAL; BG TOTAL HEMOGLOBIN 14.9 g/dL (12.0-18.0); BG TOTAL RESPIRATORY RATE 14 b/min; BG VENT MODE VENT - AC
[2021-04-29] MEDS ORDERED: VANCOMYCIN 1 G PREMIX 200 ML IV NR (12:00)
[2021-04-29] MEDS: ENOXAPARIN 40MG/0.4ML SYR SUBCUT SCH (12:19)
[2021-04-29] MEDS: METOCLOPRAMIDE HCL 10MG/2ML VIAL IV SCH ×2 (12:19→18:09)
[2021-04-29] MEDS ORDERED: PIPERACILLIN/TAZOBACTAM 2.25 G in DEXTROSE 5% WATER 50 ML IV SCH (14:00)
[2021-04-29] MEDS: PIPERACILLIN/TAZOBACTAM 2.25G in DEXTROSE 5% WATER 50ML IV SCH (15:41)
[2021-04-30] VITALS (36 sets, daily range): BP systolic 115–160; BP diastolic 64–99
[2021-04-30] MEDS: METOCLOPRAMIDE HCL 10MG/2ML VIAL IV SCH ×5 (00:05→23:22)
[2021-04-30] MEDS: PIPERACILLIN/TAZOBACTAM 2.25G in DEXTROSE 5% WATER 50ML IV SCH ×5 (00:06→23:21)
[2021-04-30] MEDS: MIDAZOLAM HCL 100 MG in SODIUM CHLORIDE 0.9% 80 ML IV PRN ×4 (01:27→23:23)
[2021-04-30] MEDS: FENTANYL CITRATE/PF 2,500 MCG in SODIUM CHLORIDE 0.9% 200 ML IV PRN ×3 (01:31→19:05)
[2021-04-30] MEDS: IPRATROPIUM/ALBUTEROL 0.5-3(2.5)MG/3ML NEB HHN SCH ×4 (02:07→20:16)
[2021-04-30 07:24] LABS: BG BASE EXCESS -0.6 mmol/L (-2.0-2.0); BG CARBOXYHEMOGLOBIN 0.3 % (0.5-1.5); BG DEOXYHEMOGLOBIN 1.6 % (0.0-5.0); BG FRACTION INSPIRED OXYGEN 50; BG METHEMOGLOBIN 0.3 % (0.0-1.5); BG OXYGEN SATURATION 98.4 % (92.0-98.5); BG OXYHEMOGLOBIN 97.8 % (94.0-97.0); BG PH 7.326 (7.350-7.450); BG SAMPLE SITE RIGHT RADIAL; BG VENT MODE VENT - AC
[2021-04-30 07:42] LABS: HEMATOCRIT. 38.3 % (42.0-52.0); MEAN CORPUSCULAR HEMOGLOBIN 31.3 pg (28.0-32.0); RED BLOOD CELL COUNT 4.16 mill/uL (4.7-6.1); RED CELL DISTRIBUTION WIDTH 12.9 % (11.6-14.6)
[2021-04-30 07:46] LABS: CHLORIDE 115 mEq/L (98-107)
[2021-04-30] MEDS: DEXT 5%/0.45% NACL 1000ML 1,000 ML IV SCH ×2 (07:56→16:00)
[2021-04-30] MEDS: LEVETIRACETAM 500MG PREMIX 100 ML IV SCH ×2 (09:00→21:07)
[2021-04-30 09:48] LABS: PLATELET 138 x1000/uL (130-400)
[2021-04-30 09:53] LABS: PLATELET ESTIMATE NORMAL
[2021-04-30 12:20] LABS: CREATINE KINASE 1281 IU/L (39-308)
[2021-04-30] MEDS: PANTOPRAZOLE SODIUM 40 MG/VIAL IV SCH (12:33)
[2021-04-30] MEDS: ENOXAPARIN 40MG/0.4ML SYR SUBCUT SCH (12:34)
[2021-04-30] MEDS: LAMOTRIGINE 100MG TABLET PO SCH (21:08)
[2021-05-01] VITALS (42 sets, daily range): BP systolic 124–210; BP diastolic 69–148
[2021-05-01] MEDS: IPRATROPIUM/ALBUTEROL 0.5-3(2.5)MG/3ML NEB HHN SCH ×3 (02:11→20:08)
[2021-05-01] MEDS: DEXT 5%/0.45% NACL 1000ML 1,000 ML IV SCH ×2 (04:11→08:20)
[2021-05-01] MEDS: FENTANYL CITRATE/PF 2,500 MCG in SODIUM CHLORIDE 0.9% 200 ML IV PRN (04:11)
[2021-05-01] MEDS: MIDAZOLAM HCL 100 MG in SODIUM CHLORIDE 0.9% 80 ML IV PRN (04:41)
[2021-05-01] MEDS: PIPERACILLIN/TAZOBACTAM 2.25G in DEXTROSE 5% WATER 50ML IV SCH ×4 (05:05→23:26)
[2021-05-01] MEDS: METOCLOPRAMIDE HCL 10MG/2ML VIAL IV SCH ×4 (05:05→23:26)
[2021-05-01 06:52] LABS: BASOPHILS % 0.2 % (0.0-2.0); EOSINOPHILS % 5.9 % (0.0-5.0); HEMATOCRIT. 39.3 % (42.0-52.0); HEMOGLOBIN. 13.3 g/dL (14.0-18.0); LYMPHOCYTES % 12.4 % (20.0-50.0); MEAN CORPUSCULAR HEMOGLOBIN 31.3 pg (28.0-32.0); MEAN CORPUSCULAR VOLUME 92.3 fL (80.0-94.0); MEAN PLATELET VOLUME 9.8 fl (7.4-10.4); MONOCYTES % 13.2 % (2.0-8.0); NEUTROPHILS % 68.3 % (40.0-76.0); PLATELET 145 x1000/uL (130-400); RED BLOOD CELL COUNT 4.26 mill/uL (4.7-6.1)
[2021-05-01 07:05] LABS: PHOSPHORUS 3.7 mg/dL (2.5-4.9)
[2021-05-01 08:02] LABS: BG BASE EXCESS 1.6 mmol/L (-2.0-2.0); BG CARBOXYHEMOGLOBIN 0.2 % (0.5-1.5); BG DEOXYHEMOGLOBIN 1.1 % (0.0-5.0); BG FRACTION INSPIRED OXYGEN 50; BG HCO3 ACT 28.1 mmol/L (22.0-26.0); BG METHEMOGLOBIN 0.5 % (0.0-1.5); BG OXYGEN SATURATION 98.9 % (92.0-98.5); BG OXYHEMOGLOBIN 98.2 % (94.0-97.0); BG PCO2 51.9 mmHg (35.0-45.0); BG PH 7.351 (7.350-7.450); BG PO2 162.4 mmHg (75.0-100.0); BG SAMPLE SITE RIGHT RADIAL; BG TOTAL HEMOGLOBIN 13.3 g/dL (12.0-18.0); BG VENT MODE VENT - AC
[2021-05-01] MEDS ORDERED: POTASSIUM CHLORIDE 20MEQ/PACKET PO NR (08:30)
[2021-05-01] MEDS: LAMOTRIGINE 100MG TABLET PO SCH ×2 (08:38→20:53)
[2021-05-01] MEDS: PANTOPRAZOLE SODIUM 40 MG/VIAL IV SCH (08:38)
[2021-05-01] MEDS: LEVETIRACETAM 500MG PREMIX 100 ML IV SCH ×2 (08:39→20:39)
[2021-05-01] MEDS: RISPERIDONE 0.5MG TABLET PO SCH (08:39)
[2021-05-01] MEDS: DEXTROSE 5% WATER 1,000 ML IV SCH ×2 (09:03→16:30)
[2021-05-01 09:11] LABS: ANTI-NUCLEAR ANTIBODIES DIRECT Negative (Negative)
[2021-05-01 11:13] LABS: BG BASE EXCESS 0.7 mmol/L (-2.0-2.0); BG CARBOXYHEMOGLOBIN 0.3 % (0.5-1.5); BG DEOXYHEMOGLOBIN 3.6 % (0.0-5.0); BG FRACTION INSPIRED OXYGEN 40; BG HCO3 ACT 27.1 mmol/L (22.0-26.0); BG METHEMOGLOBIN 0.3 % (0.0-1.5); BG OXYGEN SATURATION 96.4 % (92.0-98.5); BG OXYHEMOGLOBIN 95.8 % (94.0-97.0); BG PCO2 50.4 mmHg (35.0-45.0); BG PH 7.348 (7.350-7.450); BG PO2 84.6 mmHg (75.0-100.0); BG SAMPLE SITE RIGHT RADIAL; BG TOTAL HEMOGLOBIN 14.1 g/dL (12.0-18.0); BG VENT MODE VENT - CPAP
[2021-05-01] MEDS: ENOXAPARIN 40MG/0.4ML SYR SUBCUT SCH (12:55)
[2021-05-01] MEDS: LORAZEPAM 2MG/ML CPJ IV PRN ×2 (12:55→17:35)
[2021-05-01] MEDS ORDERED: MORPHINE SULFATE 2 MG/ML CPJ (NOT FOR IM USE) IV PRN (18:45)
[2021-05-02] VITALS (30 sets, daily range): BP systolic 134–207; BP diastolic 61–153
[2021-05-02] MEDS: IPRATROPIUM/ALBUTEROL 0.5-3(2.5)MG/3ML NEB HHN SCH ×4 (01:50→20:46)
[2021-05-02] MEDS: DEXTROSE 5% WATER 1,000 ML IV SCH ×3 (03:21→17:11)
[2021-05-02] MEDS: METOCLOPRAMIDE HCL 10MG/2ML VIAL IV SCH ×4 (05:55→23:41)
[2021-05-02] MEDS: PIPERACILLIN/TAZOBACTAM 2.25G in DEXTROSE 5% WATER 50ML IV SCH ×4 (05:55→23:42)
[2021-05-02 06:19] LABS: BASOPHILS % 0.5 % (0.0-2.0); EOSINOPHILS % 4.4 % (0.0-5.0); HEMATOCRIT. 37.9 % (42.0-52.0); LYMPHOCYTES % 11.9 % (20.0-50.0); MEAN CORPUSCULAR HEMOGLOBIN 31.3 pg (28.0-32.0); MEAN CORPUSCULAR VOLUME 91.2 fL (80.0-94.0); MEAN PLATELET VOLUME 10.2 fl (7.4-10.4); MONOCYTES % 13.8 % (2.0-8.0); NEUTROPHILS % 69.4 % (40.0-76.0); PLATELET 170 x1000/uL (130-400); RED BLOOD CELL COUNT 4.16 mill/uL (4.7-6.1); RED CELL DISTRIBUTION WIDTH 12.8 % (11.6-14.6)
[2021-05-02] MEDS: PANTOPRAZOLE SODIUM 40 MG/VIAL IV SCH (08:58)
[2021-05-02] MEDS: LAMOTRIGINE 100MG TABLET PO SCH ×2 (08:58→20:29)
[2021-05-02] MEDS: RISPERIDONE 0.5MG TABLET PO SCH (08:58)
[2021-05-02] MEDS: LEVETIRACETAM 500MG PREMIX 100 ML IV SCH ×2 (08:59→20:29)
[2021-05-02] MEDS ORDERED: POTASSIUM CHLORIDE 20MEQ/PACKET PO NR (10:00)
[2021-05-02] MEDS ORDERED: NALOXONE HCL 0.4MG/ML VIAL IV PRN (10:45)
[2021-05-02] MEDS: ENOXAPARIN 40MG/0.4ML SYR SUBCUT SCH (12:15)
[2021-05-03] VITALS (36 sets, daily range): BP systolic 114–171; BP diastolic 44–109
[2021-05-03] MEDS: DEXTROSE 5% WATER 1,000 ML IV SCH ×2 (01:21→09:17)
[2021-05-03] MEDS: IPRATROPIUM/ALBUTEROL 0.5-3(2.5)MG/3ML NEB HHN SCH ×4 (02:34→21:10)
[2021-05-03] MEDS: PIPERACILLIN/TAZOBACTAM 2.25G in DEXTROSE 5% WATER 50ML IV SCH ×3 (06:06→17:02)
[2021-05-03] MEDS: METOCLOPRAMIDE HCL 10MG/2ML VIAL IV SCH ×3 (06:07→17:02)
[2021-05-03 08:58] LABS: BASOPHILS % 0.5 % (0.0-2.0); EOSINOPHILS % 6.3 % (0.0-5.0); HEMATOCRIT. 43.3 % (42.0-52.0); HEMOGLOBIN. 14.7 g/dL (14.0-18.0); LYMPHOCYTES % 12.8 % (20.0-50.0); MEAN CORPUSCULAR HEMOGLOBIN 31.1 pg (28.0-32.0); MEAN PLATELET VOLUME 9.4 fl (7.4-10.4); MONOCYTES % 11.9 % (2.0-8.0); NEUTROPHILS % 68.5 % (40.0-76.0); PLATELET 234 x1000/uL (130-400); RED BLOOD CELL COUNT 4.71 mill/uL (4.7-6.1); RED CELL DISTRIBUTION WIDTH 12.9 % (11.6-14.6)
[2021-05-03] MEDS: PANTOPRAZOLE SODIUM 40 MG/VIAL IV SCH (09:17)
[2021-05-03] MEDS: LAMOTRIGINE 100MG TABLET PO SCH ×2 (09:17→21:31)
[2021-05-03] MEDS: LEVETIRACETAM 500MG PREMIX 100 ML IV SCH ×2 (09:17→21:31)
[2021-05-03] MEDS: RISPERIDONE 0.5MG TABLET PO SCH (09:17)
[2021-05-03] MEDS: ENOXAPARIN 40MG/0.4ML SYR SUBCUT SCH (11:21)
[2021-05-03] MEDS: HYDRALAZINE 20MG/ML VIAL IV PRN ×2 (17:02→22:49)
[2021-05-04] VITALS (22 sets, daily range): BP systolic 116–176; BP diastolic 66–107
[2021-05-04] MEDS: METOCLOPRAMIDE HCL 10MG/2ML VIAL IV SCH ×3 (00:16→12:20)
[2021-05-04] MEDS: PIPERACILLIN/TAZOBACTAM 2.25G in DEXTROSE 5% WATER 50ML IV SCH ×4 (00:16→18:02)
[2021-05-04] MEDS: IPRATROPIUM/ALBUTEROL 0.5-3(2.5)MG/3ML NEB HHN SCH ×4 (01:46→21:02)
[2021-05-04 05:53] LABS: CHLORIDE 112 mEq/L (98-107)
[2021-05-04 06:09] LABS: CREATINE KINASE 745 IU/L (39-308)
[2021-05-04] MEDS: LAMOTRIGINE 100MG TABLET PO SCH ×2 (08:15→21:57)
[2021-05-04] MEDS: PANTOPRAZOLE SODIUM 40 MG/VIAL IV SCH (08:15)
[2021-05-04] MEDS: RISPERIDONE 0.5MG TABLET PO SCH (08:15)
[2021-05-04] MEDS: LEVETIRACETAM 500MG PREMIX 100 ML IV SCH (08:16)
[2021-05-04] MEDS ORDERED: POTASSIUM CHLORIDE 20MEQ TABLET SR PO NR (09:00)
[2021-05-04] MEDS: ENOXAPARIN 40MG/0.4ML SYR SUBCUT SCH (12:20)
[2021-05-04] MEDS: LEVETIRACETAM 500MG TABLET PO SCH (21:57)
[2021-05-05] VITALS: BP 125/66
[2021-05-05] MEDS: METOCLOPRAMIDE HCL 10MG/2ML VIAL IV SCH ×4 (00:36→17:15)
[2021-05-05] MEDS: IPRATROPIUM/ALBUTEROL 0.5-3(2.5)MG/3ML NEB HHN SCH ×4 (02:34→18:00)
[2021-05-05 04:00] VITALS: BP 138/77
[2021-05-05 08:00] VITALS: BP 134/90
[2021-05-05] MEDS: FAMOTIDINE 20MG TABLET PO SCH ×2 (08:00→22:24)
[2021-05-05] MEDS: LEVETIRACETAM 500MG TABLET PO SCH ×2 (08:00→22:24)
[2021-05-05] MEDS: RISPERIDONE 0.5MG TABLET PO SCH (08:01)
[2021-05-05] MEDS: LAMOTRIGINE 100MG TABLET PO SCH ×2 (08:01→22:24)
[2021-05-05] MEDS ORDERED: ACETAMINOPHEN 325MG TABLET PO PRN (08:15)
[2021-05-05] MEDS ORDERED: POTASSIUM CHLORIDE 20MEQ TABLET SR PO NR (08:15)
[2021-05-05] MEDS: ENOXAPARIN 40MG/0.4ML SYR SUBCUT SCH (11:18)
[2021-05-05 12:00] VITALS: BP 166/81
[2021-05-05 16:00] VITALS: BP 164/87
[2021-05-05 20:00] VITALS: BP 144/92
[2021-05-06] MEDS: METOCLOPRAMIDE HCL 10MG/2ML VIAL IV SCH ×2 (00:39→06:00)
[2021-05-06 04:00] VITALS: BP 163/72
[2021-05-06 08:14] LABS: BASOPHILS % 0.9 % (0.0-2.0); EOSINOPHILS % 7.2 % (0.0-5.0); HEMATOCRIT. 38.7 % (42.0-52.0); HEMOGLOBIN. 13.4 g/dL (14.0-18.0); LYMPHOCYTES % 20.2 % (20.0-50.0); MEAN CORPUSCULAR HEMOGLOBIN 31.1 pg (28.0-32.0); MEAN CORPUSCULAR VOLUME 89.9 fL (80.0-94.0); MEAN PLATELET VOLUME 8.8 fl (7.4-10.4); MONOCYTES % 10.4 % (2.0-8.0); NEUTROPHILS % 61.3 % (40.0-76.0); PLATELET 256 x1000/uL (130-400); RED CELL DISTRIBUTION WIDTH 12.8 % (11.6-14.6)
[2021-05-06 08:37] LABS: CHLORIDE 110 mEq/L (98-107)
[2021-05-06 08:42] LABS: PHOSPHORUS 3.4 mg/dL (2.5-4.9)
[2021-05-06] MEDS: IPRATROPIUM/ALBUTEROL 0.5-3(2.5)MG/3ML NEB HHN SCH ×2 (08:46)
[2021-05-06] MEDS: FAMOTIDINE 20MG TABLET PO SCH (09:25)
[2021-05-06] MEDS: LAMOTRIGINE 100MG TABLET PO SCH (09:25)
[2021-05-06] MEDS: LEVETIRACETAM 500MG TABLET PO SCH (09:25)
[2021-05-06] MEDS: RISPERIDONE 0.5MG TABLET PO SCH (09:25)
[2021-05-06] MEDS ORDERED: METOCLOPRAMIDE HCL 5MG TABLET PO SCH (12:00)
[2021-05-06] MEDS: ENOXAPARIN 40MG/0.4ML SYR SUBCUT SCH (12:00)
== END 2021-05-06 12:28 | disposition left against medical advice (07) | DRG 720 ==
LOC: EDBD 07:55 → ER 07:55 → CVICU 10:21 → EDUNIT# 10:21 → ENRESERV 13:40 → 8WST 05-04 09:02
PROVIDERS: ADMIT Hospitalist; ATTEND Hospitalist
PROC: 5A1955Z Respiratory Ventilation, Greater than 96 Consecutive Hours (ICD-10-PCS; principal; 2021-04-27)
PROC: 0BH17EZ Insertion of Endotracheal Airway into Trachea, Via Natural or Artificial Opening (ICD-10-PCS; 2021-04-27)
PROC: 02HV33Z Insertion of Infusion Device into Superior Vena Cava, Percutaneous Approach (ICD-10-PCS; 2021-04-28)
PROC: B548ZZA Ultrasonography of Superior Vena Cava, Guidance (ICD-10-PCS; 2021-04-28)
PROC: 4A10X4Z Monitoring of Central Nervous Electrical Activity, External Approach (ICD-10-PCS; 2021-04-30)
DX: A41.9 Sepsis, unspecified organism (principal); J96.01 Acute respiratory failure with hypoxia; J69.0 Pneumonitis due to inhalation of food and vomit; E87.2 Acidosis; G40.901 Epilepsy, unspecified, not intractable, with status epilepticus; I10 Essential (primary) hypertension; N17.9 Acute kidney failure, unspecified; E87.0 Hyperosmolality and hypernatremia; F12.10 Cannabis abuse, uncomplicated; F14.10 Cocaine abuse, uncomplicated; M62.82 Rhabdomyolysis; Z20.822 Contact with and (suspected) exposure to COVID-19; Z60.2 Problems related to living alone; Z79.899 Other long term (current) drug therapy; F99 Mental disorder, not otherwise specified; Z98.890 Other specified postprocedural states
CPT/HCPCS: 36415; 36600; 71045; 76770; 76937; 80048; 80053; 80156; 80165; 80184; 80185; 80202; 80305; 80320; 81003; 82375; 82550; 82728; 82805; 83615; 83735; 84100; 85025; 85379; 85384; 86038; 86140; 86160; 87070; 87426; 92610; 93005; 93970; 94003; 94640; 95816; 97162; 97166; 97535; 99291; C1725; C9113; J0153; J0360; J1165; J1650; J1953; J2060; J2250; J2270; J2543; J2765; J3010; J3370; J3490; J7050; J7060; J7070; A4315; G0480

== ENCOUNTER 2021-05-18 04:26 | Emergency (ER) | payer MEDICAID ==
[~2021-05-18] VITALS: Ht 195.6 cm; Wt 98.0 kg
[2021-05-18 04:29] VITALS: BP 145/87
== END 2021-05-18 06:08 | disposition home or self-care (01) ==
LOC: ER 05:14
DX: Z48.00 Encounter for change or removal of nonsurgical wound dressing (principal); I87.8 Other specified disorders of veins; I10 Essential (primary) hypertension; G40.909 Epilepsy, unspecified, not intractable, without status epilepticus; Z87.820 Personal history of traumatic brain injury; Z88.8 Allergy status to other drugs, medicaments and biological substances; Z91.018 Allergy to other foods
CPT/HCPCS: 99281

== ENCOUNTER 2021-06-08 15:00 | Inpatient (IN) | payer MEDICAID ==
[~2021-06-08] VITALS: Ht 182.9 cm; Wt 103.1 kg
[~2021-06-08 15:00] MED LIST changes: +ETOMIDATE 2MG/ML 10ML VIAL IV ONE; +VECURONIUM BROMIDE 10 MG/VIAL IV ONE
[2021-06-08] MEDS ORDERED: SODIUM CHLORIDE 0.9% 1,000 ML IV ONE (15:45)
[2021-06-08] MEDS ORDERED: LEVETIRACETAM 1000MG PREMIX 100 ML IV ONE (15:45)
[2021-06-08] MEDS ORDERED: DIAZEPAM 5 MG/ML 2ML CPJ IV ONE (16:00)
[2021-06-08 16:40] LABS: BASOPHILS % 0.4 % (0.0-2.0); EOSINOPHILS % 0.3 % (0.0-5.0); HEMATOCRIT. 41.6 % (42.0-52.0); HEMOGLOBIN. 14.3 g/dL (14.0-18.0); LYMPHOCYTES % 10.6 % (20.0-50.0); MEAN CORPUSCULAR VOLUME 93.3 fL (80.0-94.0); MEAN PLATELET VOLUME 9.8 fl (7.4-10.4); MONOCYTES % 3.2 % (2.0-8.0); NEUTROPHILS % 85.5 % (40.0-76.0); PLATELET 167 x1000/uL (130-400); RED BLOOD CELL COUNT 4.46 mill/uL (4.7-6.1); RED CELL DISTRIBUTION WIDTH 13.9 % (11.6-14.6)
[2021-06-08 16:43] LABS: CHLORIDE 110 mEq/L (98-107)
[2021-06-08] MEDS: PROPOFOL 10MG/ML 100ML 100 ML IV SCH ×2 (16:48→17:51)
[2021-06-08 16:50] LABS: ETHANOL BLOOD < 10 mg/dL
[2021-06-08 16:52] LABS: CREATINE KINASE 361 IU/L (39-308)
[2021-06-08 16:55] LABS: PHENOBARBITAL 2.6 ug/mL (15.0-40.0)
[2021-06-08] MEDS ORDERED: ETOMIDATE 2MG/ML 10ML VIAL IV ONE (17:00)
[2021-06-08] MEDS ORDERED: SODIUM CHLORIDE 0.9% 1000ML BAG (SEPSIS BOLUS) IV ONE (17:00)
[2021-06-08] MEDS ORDERED: LEVOFLOXACIN 500MG PREMIX 100 ML IV ONE (17:00)
[2021-06-08] MEDS ORDERED: PIPERACILLIN/TAZ 3.375G PREMIX 50 ML IV ONE (17:00)
[2021-06-08] MEDS ORDERED: VECURONIUM BROMIDE 10 MG/VIAL IV ONE (17:00)
[2021-06-08] MEDS ORDERED: SUCCINYLCHOLINE CHLORIDE 200MG/10ML IV ONE (17:00)
[2021-06-08 17:06] LABS: BG BASE EXCESS -4.6 mmol/L (-2.0-2.0); BG FRACTION INSPIRED OXYGEN 100; BG HCO3 ACT 19.5 mmol/L (22.0-26.0); BG METHEMOGLOBIN 0.4 % (0.0-1.5); BG OXYHEMOGLOBIN 97.6 % (94.0-97.0); BG PCO2 33.6 mmHg (35.0-45.0); BG PH 7.382 (7.350-7.450); BG PO2 206.5 mmHg (75.0-100.0); BG SAMPLE SITE RIGHT RADIAL; BG TOTAL HEMOGLOBIN 14.7 g/dL (12.0-18.0); BG VENT MODE VENT - AC
[2021-06-08 17:09] LABS: CARBAMAZEPINE < 0.5 ug/mL (4-12)
[2021-06-08] MEDS ORDERED: IPRATROPIUM/ALBUTEROL 0.5-3(2.5)MG/3ML NEB HHN PRN ×2 (17:45→18:45)
[2021-06-08] MEDS ORDERED: DIPHENHYDRAMINE 50MG/ML VIAL IV PRN (18:45)
[2021-06-08] MEDS ORDERED: AZITHROMYCIN 500 MG in DEXT 5% WATER 250 ML IV SCH (18:45)
[2021-06-08] MEDS ORDERED: ONDANSETRON HCL 4MG/2ML INJ IV PRN (18:45)
[2021-06-08] MEDS ORDERED: ACETAMINOPHEN 650MG SUPP PR PRN (18:45)
[2021-06-08] MEDS ORDERED: DIAZEPAM 5 MG/ML 2ML CPJ IV PRN (18:45)
[2021-06-08] MEDS ORDERED: MORPHINE SULFATE 250 MG in DEXT 5% WATER 225 ML IV PRN (18:45)
[2021-06-08] MEDS ORDERED: LEVETIRACETAM 500 MG in SODIUM CHLORIDE 0.9% 100 ML IV SCH (18:45)
[2021-06-08] MEDS ORDERED: CEFTRIAXONE 1 G PREMIX 50 ML IV SCH (18:45)
[2021-06-08] MEDS ORDERED: MIDAZOLAM 100MG/100ML PMX 100 ML IV PRN (19:00)
[2021-06-08] MEDS: PANTOPRAZOLE SODIUM 40 MG/VIAL IV SCH (19:00)
[2021-06-08] MEDS ORDERED: FENTANYL CITRATE/PF 2,500 MCG in SODIUM CHLORIDE 0.9% 200 ML IV PRN (19:00)
[2021-06-08] MEDS ORDERED: CEFTRIAXONE 1,000 MG in DEXTROSE 5% WATER 50 ML IV SCH (19:00)
[2021-06-08] MEDS ORDERED: FENTANYL CITRATE/PF 1,000 MCG in SODIUM CHLORIDE 0.9% 80 ML IV STA (19:33)
[2021-06-08] MEDS ORDERED: FENTANYL CITRATE/PF 50MCG/ML 2ML VIAL IV ONE (19:45)
[2021-06-08] MEDS ORDERED: MIDAZOLAM HCL 2 MG/2 ML VIAL IV ONE (19:45)
[2021-06-08] MEDS ORDERED: MIDAZOLAM HCL 100 MG in DEXT 5% WATER 80 ML IV ONE (19:45)
[2021-06-08] MEDS: IPRATROPIUM/ALBUTEROL 0.5-3(2.5)MG/3ML NEB HHN SCH ×2 (19:53→23:36)
[2021-06-08] MEDS ORDERED: AZITHROMYCIN 500MG in DEXTROSE 5% WATER 250ML IV SCH (20:00)
[2021-06-08] MEDS: MIDAZOLAM HCL 100 MG in SODIUM CHLORIDE 0.9% 100 ML IV PRN (20:12)
[2021-06-08] MEDS: LEVETIRACETAM 500MG PREMIX 100 ML IV SCH (21:28)
[2021-06-08] MEDS: SODIUM CHLORIDE 0.9% 1,000 ML IV SCH (21:29)
[2021-06-09] VITALS (51 sets, daily range): BP systolic 103–166; BP diastolic 58–110
[2021-06-09 06:18] LABS: BASOPHILS % 0.3 % (0.0-2.0); HEMATOCRIT. 42.5 % (42.0-52.0); HEMOGLOBIN. 14.1 g/dL (14.0-18.0); LYMPHOCYTES % 11.1 % (20.0-50.0); MEAN CORPUSCULAR VOLUME 93.6 fL (80.0-94.0); MEAN PLATELET VOLUME 10.1 fl (7.4-10.4); MONOCYTES % 7.8 % (2.0-8.0); NEUTROPHILS % 78.8 % (40.0-76.0); PLATELET 135 x1000/uL (130-400); RED BLOOD CELL COUNT 4.55 mill/uL (4.7-6.1)
[2021-06-09 06:21] LABS: CHLORIDE 118 mEq/L (98-107)
[2021-06-09 06:29] LABS: HDL CHOLESTEROL 66 mg/dL (40-59)
[2021-06-09 06:30] LABS: LDL CHOLESTEROL 94 mg/dL (5-100)
[2021-06-09] MEDS: LEVETIRACETAM 500MG PREMIX 100 ML IV SCH (07:10)
[2021-06-09] MEDS: IPRATROPIUM/ALBUTEROL 0.5-3(2.5)MG/3ML NEB HHN SCH ×3 (08:00→20:15)
[2021-06-09] MEDS: SODIUM CHLORIDE 0.9% 1,000 ML IV SCH (08:30)
[2021-06-09 10:11] LABS: CLARITY URINE CLEAR (CLEAR); COLOR URINE YELLOW (YELLOW); KETONES URINE NEGATIVE (NEGATIVE); LEUKOCYTE ESTERASE URINE 1+ (NEGATIVE); NITRITE URINE NEGATIVE (NEGATIVE); OCCULT BLOOD URINE 1+ (NEGATIVE); PROTEIN URINE NEGATIVE (NEGATIVE); SPECIFIC GRAVITY URINE 1.009 (1.005-1.030); UROBILINOGEN URINE 0.2 E.U./dL (0.2-1.0)
[2021-06-09] MEDS ORDERED: PROPOFOL 10MG/ML 100ML 100 ML IV PRN (10:30)
[2021-06-09] MEDS: PROPOFOL 10MG/ML 100ML 100 ML IV PRN ×3 (10:48→20:54)
[2021-06-09 11:10] LABS: *AMPHETAMINES SCREEN URINE NEGATIVE (NEGATIVE); *BARBITURATES SCREEN URINE NEGATIVE (NEGATIVE)
[2021-06-09 11:11] LABS: *BENZODIAZEPINES SCREEN URINE PRESUMTIVE POSITIVE (NEGATIVE); *COCAINE SCREEN URINE NEGATIVE (NEGATIVE); CANNABINOID URINE SCREEN PRESUMTIVE POSITIVE (NEGATIVE); METHADONE URINE SCREEN NEGATIVE (NEGATIVE); OPIATES URINE SCREEN NEGATIVE (NEGATIVE); PHENCYCLIDINE URINE SCREEN NEGATIVE (NEGATIVE)
[2021-06-09] MEDS: FENTANYL CITRATE/PF 2,500 MCG in SODIUM CHLORIDE 0.9% 200 ML IV PRN (11:32)
[2021-06-09] MEDS: FAMOTIDINE 20MG/2ML VIAL IV SCH (11:39)
[2021-06-09] MEDS: PANTOPRAZOLE SODIUM 40 MG/VIAL IV SCH (11:39)
[2021-06-09] MEDS ORDERED: NOREPINEPHRINE 8 MG in DEXT 5% WATER 242 ML IV PRN (12:00)
[2021-06-09] MEDS ORDERED: POTASSIUM CHLORIDE 20MEQ/PACKET PO SCH (12:15)
[2021-06-09] MEDS: ENOXAPARIN 40MG/0.4ML SYR SUBCUT SCH (12:25)
[2021-06-09] MEDS: SODIUM CHLORIDE 0.45% 1,000 ML IV SCH (12:26)
[2021-06-09] MEDS: MIDAZOLAM HCL 100 MG in SODIUM CHLORIDE 0.9% 100 ML IV PRN (15:04)
[2021-06-09] MEDS ORDERED: LEVETIRACETAM 1000MG PREMIX 1,000 ML IV SCH (20:00)
[2021-06-09] MEDS: LEVOFLOXACIN 750MG PREMIX 150 ML IV SCH (20:53)
[2021-06-09] MEDS: METRONIDAZOLE 500MG TABLET PO SCH (21:01)
[2021-06-10] VITALS (94 sets, daily range): BP systolic 94–184; BP diastolic 53–115
[2021-06-10] MEDS: IPRATROPIUM/ALBUTEROL 0.5-3(2.5)MG/3ML NEB HHN SCH ×4 (00:24→20:22)
[2021-06-10] MEDS: SODIUM CHLORIDE 0.45% 1,000 ML IV SCH (01:47)
[2021-06-10] MEDS: PROPOFOL 10MG/ML 100ML 100 ML IV PRN ×7 (01:48→22:51)
[2021-06-10] MEDS: METRONIDAZOLE 500MG TABLET PO SCH ×3 (05:03→22:51)
[2021-06-10 05:32] LABS: BASOPHILS % 0.4 % (0.0-2.0); HEMATOCRIT. 34.8 % (42.0-52.0); HEMOGLOBIN. 12.2 g/dL (14.0-18.0); LYMPHOCYTES % 21.1 % (20.0-50.0); MEAN CORPUSCULAR VOLUME 91.5 fL (80.0-94.0); MEAN PLATELET VOLUME 10.2 fl (7.4-10.4); MONOCYTES % 10.9 % (2.0-8.0); NEUTROPHILS % 59.6 % (40.0-76.0); PLATELET 109 x1000/uL (130-400); RED CELL DISTRIBUTION WIDTH 13.9 % (11.6-14.6)
[2021-06-10] MEDS: FENTANYL CITRATE/PF 2,500 MCG in SODIUM CHLORIDE 0.9% 200 ML IV PRN (05:36)
[2021-06-10 05:39] LABS: CHLORIDE 116 mEq/L (98-107)
[2021-06-10] MEDS: LEVETIRACETAM 1000MG PREMIX 100 ML IV SCH ×2 (09:38→21:36)
[2021-06-10] MEDS: FAMOTIDINE 20MG/2ML VIAL IV SCH (09:38)
[2021-06-10] MEDS ORDERED: POTASSIUM CHLORIDE INJ 40 MEQ in DEXT 5% WATER 250 ML IV NR (10:30)
[2021-06-10 11:20] LABS: BG BASE EXCESS -4.6 mmol/L (-2.0-2.0); BG CARBOXYHEMOGLOBIN 0.3 % (0.5-1.5); BG DEOXYHEMOGLOBIN 12.5 % (0.0-5.0); BG FRACTION INSPIRED OXYGEN 40; BG HCO3 ACT 21.9 mmol/L (22.0-26.0); BG METHEMOGLOBIN 0.2 % (0.0-1.5); BG OXYGEN SATURATION 87.4 % (92.0-98.5); BG PCO2 45.8 mmHg (35.0-45.0); BG PH 7.297 (7.350-7.450); BG PO2 58.9 mmHg (75.0-100.0); BG SAMPLE SITE LEFT BRACHIAL; BG TOTAL HEMOGLOBIN 13.9 g/dL (12.0-18.0); BG TOTAL RESPIRATORY RATE 43 b/min; BG VENT MODE VENT - CPAP
[2021-06-10] MEDS: ENOXAPARIN 40MG/0.4ML SYR SUBCUT SCH (13:17)
[2021-06-10] MEDS: LEVOFLOXACIN 750MG PREMIX 150 ML IV SCH (18:42)
[2021-06-11] VITALS (82 sets, daily range): BP systolic 90–183; BP diastolic 47–115
[2021-06-11] MEDS: IPRATROPIUM/ALBUTEROL 0.5-3(2.5)MG/3ML NEB HHN SCH ×4 (00:38→21:05)
[2021-06-11] MEDS: SODIUM CHLORIDE 0.45% 1,000 ML IV SCH ×2 (01:51→15:17)
[2021-06-11] MEDS: PROPOFOL 10MG/ML 100ML 100 ML IV PRN ×3 (02:15→07:59)
[2021-06-11] MEDS: FENTANYL CITRATE/PF 2,500 MCG in SODIUM CHLORIDE 0.9% 200 ML IV PRN (03:31)
[2021-06-11 05:25] LABS: BASOPHILS % 0.4 % (0.0-2.0); EOSINOPHILS % 8.4 % (0.0-5.0); HEMATOCRIT. 35.2 % (42.0-52.0); HEMOGLOBIN. 12.2 g/dL (14.0-18.0); LYMPHOCYTES % 22.6 % (20.0-50.0); MEAN CORPUSCULAR HEMOGLOBIN 31.4 pg (28.0-32.0); MEAN CORPUSCULAR VOLUME 90.5 fL (80.0-94.0); MEAN PLATELET VOLUME 10.3 fl (7.4-10.4); NEUTROPHILS % 57.6 % (40.0-76.0); PLATELET 111 x1000/uL (130-400); RED BLOOD CELL COUNT 3.89 mill/uL (4.7-6.1); RED CELL DISTRIBUTION WIDTH 13.7 % (11.6-14.6)
[2021-06-11 05:28] LABS: CHLORIDE 118 mEq/L (98-107)
[2021-06-11] MEDS: METRONIDAZOLE 500MG TABLET PO SCH ×3 (06:13→22:45)
[2021-06-11] MEDS: FAMOTIDINE 20MG/2ML VIAL IV SCH (08:13)
[2021-06-11] MEDS: LEVETIRACETAM 1000MG PREMIX 100 ML IV SCH ×2 (08:13→21:35)
[2021-06-11] MEDS ORDERED: HALOPERIDOL LACTATE 5MG/ML VIAL IM SCH (08:45)
[2021-06-11] MEDS ORDERED: PROPOFOL 10MG/ML 100ML 100 ML IV PRN (08:45)
[2021-06-11] MEDS ORDERED: ENOXAPARIN 30MG/0.3ML SYR SUBCUT SCH (09:00)
[2021-06-11 09:47] LABS: BG BASE EXCESS -3.9 mmol/L (-2.0-2.0); BG CARBOXYHEMOGLOBIN 0.3 % (0.5-1.5); BG DEOXYHEMOGLOBIN 3.5 % (0.0-5.0); BG HCO3 ACT 22.1 mmol/L (22.0-26.0); BG METHEMOGLOBIN 0.5 % (0.0-1.5); BG OXYGEN SATURATION 96.5 % (92.0-98.5); BG OXYHEMOGLOBIN 95.7 % (94.0-97.0); BG PCO2 43.5 mmHg (35.0-45.0); BG PH 7.324 (7.350-7.450); BG PO2 95.7 mmHg (75.0-100.0); BG SAMPLE SITE LEFT RADIAL; BG TOTAL HEMOGLOBIN 14.1 g/dL (12.0-18.0); BG VENT MODE VENT - CPAP
[2021-06-11] MEDS ORDERED: HALOPERIDOL LACTATE 5MG/ML VIAL IM PRN (10:30)
[2021-06-11] MEDS: CLONIDINE 0.1MG TABLET PO PRN (13:40)
[2021-06-11] MEDS ORDERED: AMLODIPINE 5MG TABLET PO NR (19:00)
[2021-06-11] MEDS: LEVOFLOXACIN 750MG PREMIX 150 ML IV SCH (20:30)
[2021-06-12] VITALS (18 sets, daily range): BP systolic 136–168; BP diastolic 35–99
[2021-06-12] MEDS: IPRATROPIUM/ALBUTEROL 0.5-3(2.5)MG/3ML NEB HHN SCH ×4 (00:55→20:26)
[2021-06-12] MEDS: SODIUM CHLORIDE 0.45% 1,000 ML IV SCH (02:11)
[2021-06-12] MEDS: CLONIDINE 0.1MG TABLET PO PRN (02:11)
[2021-06-12 04:59] LABS: BASOPHILS % 0.7 % (0.0-2.0); EOSINOPHILS % 7.1 % (0.0-5.0); HEMATOCRIT. 37.5 % (42.0-52.0); HEMOGLOBIN. 12.7 g/dL (14.0-18.0); LYMPHOCYTES % 15.5 % (20.0-50.0); MEAN CORPUSCULAR HEMOGLOBIN 30.7 pg (28.0-32.0); MEAN CORPUSCULAR VOLUME 90.7 fL (80.0-94.0); MEAN PLATELET VOLUME 10.2 fl (7.4-10.4); MONOCYTES % 10.3 % (2.0-8.0); NEUTROPHILS % 66.4 % (40.0-76.0); PLATELET 133 x1000/uL (130-400); RED BLOOD CELL COUNT 4.14 mill/uL (4.7-6.1); RED CELL DISTRIBUTION WIDTH 13.6 % (11.6-14.6)
[2021-06-12 05:02] LABS: CHLORIDE 110 mEq/L (98-107)
[2021-06-12] MEDS: METRONIDAZOLE 500MG TABLET PO SCH ×3 (05:58→21:50)
[2021-06-12] MEDS ORDERED: AMLODIPINE 5MG TABLET PO SCH (09:00)
[2021-06-12] MEDS: FAMOTIDINE 20MG/2ML VIAL IV SCH ×2 (09:43→21:49)
[2021-06-12] MEDS: LEVETIRACETAM 1000MG PREMIX 100 ML IV SCH (09:46)
[2021-06-12] MEDS ORDERED: AMLODIPINE 5MG TABLET PO NR (11:00)
[2021-06-12] MEDS: LEVETIRACETAM 1,500 MG in SODIUM CHLORIDE 0.9% 100 ML IV SCH (21:49)
[2021-06-12] MEDS: LEVOFLOXACIN 750MG PREMIX 150 ML IV SCH (22:50)
[2021-06-13 00:16] VITALS: BP 142/67
[2021-06-13] MEDS: IPRATROPIUM/ALBUTEROL 0.5-3(2.5)MG/3ML NEB HHN SCH ×3 (02:51→14:42)
[2021-06-13 03:54] VITALS: BP 142/62
[2021-06-13] MEDS: METRONIDAZOLE 500MG TABLET PO SCH ×2 (05:46→14:19)
[2021-06-13 06:19] LABS: CHLORIDE 106 mEq/L (98-107)
[2021-06-13 06:23] LABS: BASOPHILS % 0.5 % (0.0-2.0); HEMATOCRIT. 40.8 % (42.0-52.0); HEMOGLOBIN. 14.1 g/dL (14.0-18.0); LYMPHOCYTES % 21.3 % (20.0-50.0); MEAN CORPUSCULAR HEMOGLOBIN 31.6 pg (28.0-32.0); MEAN CORPUSCULAR VOLUME 91.2 fL (80.0-94.0); MONOCYTES % 10.2 % (2.0-8.0); RED BLOOD CELL COUNT 4.48 mill/uL (4.7-6.1); RED CELL DISTRIBUTION WIDTH 13.3 % (11.6-14.6)
[2021-06-13 08:24] VITALS: BP 136/67
[2021-06-13] MEDS ORDERED: AMLODIPINE 10MG TABLET PO SCH (09:00)
[2021-06-13] MEDS: FAMOTIDINE 20MG/2ML VIAL IV SCH (09:47)
[2021-06-13] MEDS: LEVETIRACETAM 1,500 MG in SODIUM CHLORIDE 0.9% 100 ML IV SCH (09:47)
[2021-06-13] MEDS ORDERED: LIDOCAINE HCL 1% 20ML VIAL (Pyxis) INJ ONE (10:27)
[2021-06-13 12:00] VITALS: BP 203/100
[2021-06-13] MEDS: CLONIDINE 0.1MG TABLET PO PRN (12:36)
[2021-06-13] MEDS ORDERED: METR500T MT (13:53)
[2021-06-13] MEDS ORDERED: LEVE1000 MT (13:53)
[2021-06-13] MEDS ORDERED: LAM25 PO (13:53)
[2021-06-13] MEDS ORDERED: LEVO750T46 MT (13:53)
[2021-06-13] MEDS ORDERED: KEPP500 MT (13:53)
[2021-06-13] MEDS ORDERED: AMLO5TAB88 PO (13:53)
[2021-06-13] MEDS ORDERED: HYDR100T26 PO (13:53)
[2021-06-13 14:51] VITALS: BP 138/75
[2021-06-13 17:18] VITALS: BP 139/78
== END 2021-06-13 18:23 | disposition home or self-care (01) | DRG 53 ==
LOC: ER 15:00 → MICUSO 16:49 → EDBEDREQSVC 16:53 → EDBEDREQ 16:53 → EDBEDREQTM 16:53 → 5EST 06-09 08:36 → MICUSO 06-09 17:55 → 6WST 06-12 15:33
PROVIDERS: ADMIT Internal Medicine; ATTEND Internal Medicine
PROC: 5A1945Z Respiratory Ventilation, 24-96 Consecutive Hours (ICD-10-PCS; principal; 2021-06-08)
PROC: 06HY33Z Insertion of Infusion Device into Lower Vein, Percutaneous Approach (ICD-10-PCS; 2021-06-08)
PROC: B54CZZA Ultrasonography of Left Lower Extremity Veins, Guidance (ICD-10-PCS; 2021-06-08)
PROC: 0BH17EZ Insertion of Endotracheal Airway into Trachea, Via Natural or Artificial Opening (ICD-10-PCS; 2021-06-08)
PROC: 05HY33Z Insertion of Infusion Device into Upper Vein, Percutaneous Approach (ICD-10-PCS; 2021-06-10)
PROC: 02HV33Z Insertion of Infusion Device into Superior Vena Cava, Percutaneous Approach (ICD-10-PCS; 2021-06-13)
PROC: B548ZZA Ultrasonography of Superior Vena Cava, Guidance (ICD-10-PCS; 2021-06-13)
PROC: B548ZZA Ultrasonography of Superior Vena Cava, Guidance (ICD-10-PCS; 2021-06-13)
DX: G40.911 Epilepsy, unspecified, intractable, with status epilepticus (principal); J96.00 Acute respiratory failure, unspecified whether with hypoxia or hypercapnia; J69.0 Pneumonitis due to inhalation of food and vomit; J94.2 Hemothorax; G93.89 Other specified disorders of brain; Z20.822 Contact with and (suspected) exposure to COVID-19; I10 Essential (primary) hypertension; E11.9 Type 2 diabetes mellitus without complications; F12.10 Cannabis abuse, uncomplicated; F14.10 Cocaine abuse, uncomplicated; R93.89 Abnormal findings on diagnostic imaging of other specified body structures; Z88.8 Allergy status to other drugs, medicaments and biological substances; Z79.899 Other long term (current) drug therapy; Z87.820 Personal history of traumatic brain injury; Z78.1 Physical restraint status
CPT/HCPCS: 31500; 36415; 36573; 36600; 70551; 71045; 76937; 80048; 80053; 80061; 80156; 80165; 80184; 80185; 80305; 80320; 81003; 82375; 82550; 82805; 83605; 84443; 84478; 85025; 87070; 87426; 92610; 93005; 93970; 94002; 94003; 94640; 95816; 97162; 99291; C1725; C1769; C9113; J0456; J0696; J1630; J1650; J1953; J1956; J2250; J2543; J2704; J3010; J3480; J3490; J7030; J7040; J7050; J7060; G0480

== ENCOUNTER 2021-08-18 05:58 | Emergency (ER) | payer MEDICAID ==
[~2021-08-18] VITALS: Ht 195.6 cm; Wt 98.0 kg
[~2021-08-18 05:58] MED LIST changes: -AMLO2.5T45 MT; -DEPAKOTE PO; -DIVA250T4 MT; -DIVAL250 PO; -ETOMIDATE 2MG/ML 10ML VIAL IV ONE; -FLUC100T42 PO; -KEPP500 PO; +LEVO750T46 MT; -LISI10TA26 MT; +METR500T MT; -PHEN100C4 PO; -VALP250C PO; -VECURONIUM BROMIDE 10 MG/VIAL IV ONE
[2021-08-18 06:03] VITALS: BP 173/98
== END 2021-08-18 06:48 | disposition left against medical advice (07) ==
LOC: ER 05:58
DX: Z53.21 Procedure and treatment not carried out due to patient leaving prior to being seen by health care provider (principal)

== ENCOUNTER 2021-09-10 02:49 | Emergency (ER) | payer MEDICAID ==
[~2021-09-10] VITALS: Ht 193 cm; Wt 98.0 kg
[2021-09-10 02:56] VITALS: BP 143/83
[2021-09-10] MEDS ORDERED: LEVE1000 PO (03:45)
[2021-09-10] MEDS ORDERED: LAMO25TA3 PO (03:45)
[2021-09-10] MEDS ORDERED: LEVETIRACETAM 500MG TABLET PO STA (03:54)
== END 2021-09-10 04:12 | disposition home or self-care (01) ==
LOC: ER 02:49
DX: G40.909 Epilepsy, unspecified, not intractable, without status epilepticus (principal); Z87.820 Personal history of traumatic brain injury; Z88.8 Allergy status to other drugs, medicaments and biological substances; Z91.018 Allergy to other foods
CPT/HCPCS: 99283

== ENCOUNTER 2021-09-23 02:05 | Emergency (ER) | payer MEDICAID ==
[~2021-09-23] VITALS: Ht 195.6 cm; Wt 98.0 kg
[~2021-09-23 02:05] MED LIST changes: +LAMO25TA3 PO; +LEVE1000 PO
[2021-09-23 02:42] VITALS: BP 186/94
[2021-09-23] MEDS ORDERED: LEVE1000 MT (03:08)
== END 2021-09-23 04:07 | disposition home or self-care (01) ==
LOC: ER 02:05
DX: Z76.0 Encounter for issue of repeat prescription (principal); G40.909 Epilepsy, unspecified, not intractable, without status epilepticus; Z87.828 Personal history of other (healed) physical injury and trauma
CPT/HCPCS: 99283

== ENCOUNTER 2021-09-30 22:29 | Emergency (ER) | payer MEDICAID ==
[~2021-09-30] VITALS: Ht 193 cm; Wt 99.0 kg
[2021-10-01] MEDS ORDERED: KETOROLAC 30MG/ML VIAL IV STA (02:40)
[2021-10-01 04:05] LABS: BASOPHILS % 0.8 % (0.0-2.0); EOSINOPHILS % 3.3 % (0.0-5.0); HEMATOCRIT. 43.7 % (42.0-52.0); HEMOGLOBIN. 14.6 g/dL (14.0-18.0); LYMPHOCYTES % 19.1 % (20.0-50.0); MEAN CORPUSCULAR HEMOGLOBIN 30.8 pg (28.0-32.0); MEAN CORPUSCULAR VOLUME 92.4 fL (80.0-94.0); MEAN PLATELET VOLUME 9.9 fl (7.4-10.4); MONOCYTES % 8.8 % (2.0-8.0); PLATELET 253 x1000/uL (130-400); RED BLOOD CELL COUNT 4.73 mill/uL (4.7-6.1); RED CELL DISTRIBUTION WIDTH 13.5 % (11.6-14.6)
[2021-10-01 04:12] LABS: CHLORIDE 107 mEq/L (98-107)
[2021-10-01 04:16] LABS: ETHANOL BLOOD < 10 mg/dL
[2021-10-01] MEDS ORDERED: FUROSEMIDE 100MG/10ML VIAL IVP NR (05:00)
[2021-10-01] MEDS ORDERED: NAPR-681 PO (05:03)
[2021-10-01] MEDS ORDERED: FURO-151 PO (05:03)
[2021-10-01] MEDS ORDERED: KETOROLAC 60MG/2ML VIAL IM STA (06:33)
[2021-10-01] MEDS ORDERED: FUROSEMIDE 100MG/10ML VIAL IM ONE (06:45)
[2021-10-01 07:10] VITALS: BP 150/87
== END 2021-10-01 07:27 | disposition home or self-care (01) ==
LOC: ER 22:29
DX: R60.0 Localized edema (principal); M79.604 Pain in right leg; M79.605 Pain in left leg; F14.10 Cocaine abuse, uncomplicated; F12.10 Cannabis abuse, uncomplicated; Z79.899 Other long term (current) drug therapy
CPT/HCPCS: 36415; 71045; 80053; 80320; 85025; 93970; 96372; 99285; J1885; J1940; G0480

== ENCOUNTER 2021-10-03 18:58 | Emergency (ER) | payer MEDICAID ==
[~2021-10-03] VITALS: Ht 182.9 cm; Wt 104.0 kg
[~2021-10-03 18:58] MED LIST changes: +NAPR-681 PO
[2021-10-03 19:01] VITALS: BP 138/96
[2021-10-04] MEDS ORDERED: AMOX-424 MT (02:08)
== END 2021-10-04 02:13 | disposition home or self-care (01) ==
LOC: ER 18:58
DX: L03.119 Cellulitis of unspecified part of limb (principal); E11.9 Type 2 diabetes mellitus without complications; I10 Essential (primary) hypertension; F14.10 Cocaine abuse, uncomplicated; F12.10 Cannabis abuse, uncomplicated; Z79.899 Other long term (current) drug therapy
CPT/HCPCS: 99283

== ENCOUNTER 2021-10-05 05:13 | Emergency (ER) | payer MEDICAID ==
[~2021-10-05] VITALS: Ht 195.6 cm; Wt 98.0 kg
[~2021-10-05 05:13] MED LIST changes: +AMOX-424 MT
[2021-10-05 05:58] VITALS: BP 153/100
== END 2021-10-05 06:42 | disposition home or self-care (01) ==
LOC: ER 06:08
DX: Z76.0 Encounter for issue of repeat prescription (principal); Z87.820 Personal history of traumatic brain injury; R03.0 Elevated blood-pressure reading, without diagnosis of hypertension; F14.90 Cocaine use, unspecified, uncomplicated; F12.90 Cannabis use, unspecified, uncomplicated; Z98.890 Other specified postprocedural states
CPT/HCPCS: 99281

== ENCOUNTER 2021-10-14 01:39 | Emergency (ER) | payer MEDICAID ==
[~2021-10-14] VITALS: Ht 195.6 cm; Wt 122.0 kg
[2021-10-14] MEDS ORDERED: ACETAMINOPHEN 325MG TABLET PO ONE (03:00)
[2021-10-14] MEDS ORDERED: DIPHENHYDRAMINE HCL/ZINC ACET 28 GM CREAM TOP ONE (03:15)
[2021-10-14 05:25] VITALS: BP 172/83
== END 2021-10-14 05:50 | disposition home or self-care (01) ==
LOC: ER 01:39
DX: L97.819 Non-pressure chronic ulcer of other part of right lower leg with unspecified severity (principal); S30.860A Insect bite (nonvenomous) of lower back and pelvis, initial encounter; S40.862A Insect bite (nonvenomous) of left upper arm, initial encounter; S40.861A Insect bite (nonvenomous) of right upper arm, initial encounter; Y93.89 Activity, other specified; W57.XXXA Bitten or stung by nonvenomous insect and other nonvenomous arthropods, initial encounter; Y92.89 Other specified places as the place of occurrence of the external cause; G40.909 Epilepsy, unspecified, not intractable, without status epilepticus; Z79.899 Other long term (current) drug therapy
CPT/HCPCS: 99283

== ENCOUNTER 2021-10-17 20:00 | Emergency (ER) | payer MEDICAID ==
[~2021-10-17] VITALS: Ht 193 cm; Wt 98.0 kg
[2021-10-18] MEDS ORDERED: DIVA250T4 MT (00:46)
[2021-10-18] MEDS ORDERED: LEVE1000 MT (00:46)
[2021-10-18 02:50] VITALS: BP 119/67
== END 2021-10-18 02:51 | disposition home or self-care (01) ==
LOC: ER 20:00
DX: Z76.0 Encounter for issue of repeat prescription (principal); F14.10 Cocaine abuse, uncomplicated; F12.10 Cannabis abuse, uncomplicated; I10 Essential (primary) hypertension; Z88.8 Allergy status to other drugs, medicaments and biological substances; Z79.899 Other long term (current) drug therapy; Z86.59 Personal history of other mental and behavioral disorders; Z98.890 Other specified postprocedural states
CPT/HCPCS: 99281

== ENCOUNTER 2022-01-07 02:26 | Emergency (ER) | payer MEDICAID ==
[~2022-01-07] VITALS: Ht 190.5 cm; Wt 96.0 kg
[~2022-01-07 02:26] MED LIST changes: +DIVA250T4 MT
[2022-01-07 02:37] VITALS: BP 110/76
[2022-01-07] MEDS ORDERED: LEVE1000 MT (02:46)
[2022-01-07] MEDS ORDERED: DIVA250T4 MT (02:46)
[2022-01-07] MEDS ORDERED: ZINC113C10 TP (03:02)
== END 2022-01-07 03:10 | disposition home or self-care (01) ==
LOC: ER 02:26
DX: Z76.0 Encounter for issue of repeat prescription (principal); G40.909 Epilepsy, unspecified, not intractable, without status epilepticus
CPT/HCPCS: 99283

== ENCOUNTER 2022-01-25 01:50 | Emergency (ER) | payer MEDICAID ==
[~2022-01-25] VITALS: Ht 195.6 cm; Wt 98.0 kg
[~2022-01-25 01:50] MED LIST changes: +ZINC113C10 TP
[2022-01-25 02:11] VITALS: BP 124/54
== END 2022-01-25 05:30 | disposition left against medical advice (07) ==
LOC: ER 01:50
DX: R60.0 Localized edema (principal); M79.605 Pain in left leg; M79.604 Pain in right leg
CPT/HCPCS: 99281; Z7610

== ENCOUNTER 2022-03-08 05:20 | Emergency (ER) | payer MEDICAID ==
[~2022-03-08] VITALS: Ht 195.6 cm; Wt 98.0 kg
[2022-03-08 07:50] VITALS: BP 132/76
== END 2022-03-08 07:50 | disposition home or self-care (01) ==
LOC: ER 06:06
DX: Z48.00 Encounter for change or removal of nonsurgical wound dressing (principal)
CPT/HCPCS: 99281

== ENCOUNTER 2022-04-04 01:29 | Emergency (ER) | payer MEDICAID ==
[~2022-04-04] VITALS: Ht 195.6 cm; Wt 97.7 kg
[2022-04-04] MEDS ORDERED: BACL-141 MT (03:21)
[2022-04-04 03:27] VITALS: BP 125/77
== END 2022-04-04 03:27 | disposition home or self-care (01) ==
LOC: ER 01:29
DX: M62.838 Other muscle spasm (principal); Z76.0 Encounter for issue of repeat prescription; I10 Essential (primary) hypertension; F14.10 Cocaine abuse, uncomplicated; F12.10 Cannabis abuse, uncomplicated; Z79.899 Other long term (current) drug therapy
CPT/HCPCS: 99283

== ENCOUNTER 2022-05-01 05:13 | Emergency (ER) | payer MEDICAID ==
[~2022-05-01] VITALS: Ht 188 cm; Wt 82.0 kg
[~2022-05-01 05:13] MED LIST changes: +BACL-141 MT
[2022-05-01 05:59] VITALS: BP 136/64
== END 2022-05-01 07:00 | disposition home or self-care (01) ==
LOC: ER 05:13
DX: Z48.00 Encounter for change or removal of nonsurgical wound dressing (principal); G82.20 Paraplegia, unspecified; I10 Essential (primary) hypertension; G40.909 Epilepsy, unspecified, not intractable, without status epilepticus
CPT/HCPCS: 99281

== ENCOUNTER 2022-05-18 05:58 | Emergency (ER) | payer MEDICAID ==
[~2022-05-18] VITALS: Ht 195.6 cm; Wt 121.0 kg
[2022-05-18 06:17] VITALS: BP 125/100
== END 2022-05-18 06:44 | disposition left against medical advice (07) ==
LOC: ER 05:58
DX: R60.0 Localized edema (principal); Z86.59 Personal history of other mental and behavioral disorders; Z79.899 Other long term (current) drug therapy; Z88.8 Allergy status to other drugs, medicaments and biological substances; Z13.9 Encounter for screening, unspecified; Z53.21 Procedure and treatment not carried out due to patient leaving prior to being seen by health care provider
CPT/HCPCS: 99283

== ENCOUNTER 2022-09-04 11:23 | Emergency (ER) | payer MEDICAID ==
[~2022-09-04] VITALS: Ht 182.9 cm; Wt 82.0 kg
[~2022-09-04 11:23] MED LIST changes: -LEVO750T46 MT; +LEVO750T68 MT
[2022-09-04] MEDS ORDERED: KETOROLAC 60MG/2ML VIAL IM ONE (13:15)
[2022-09-04] MEDS ORDERED: IBUP-2028 MT (13:55)
[2022-09-05] MEDS ORDERED: KEPP500 MT (23:32)
[2022-09-05] MEDS ORDERED: PHEN100C4 MT (23:32)
[2022-09-06 07:46] VITALS: BP 142/70
== END 2022-09-06 09:36 | disposition home or self-care (01) ==
LOC: ER 11:41
DX: M54.59 Other low back pain (principal); I10 Essential (primary) hypertension; S06.9XAS Unspecified intracranial injury with loss of consciousness status unknown, sequela; G81.94 Hemiplegia, unspecified affecting left nondominant side; G40.909 Epilepsy, unspecified, not intractable, without status epilepticus; X58.XXXS Exposure to other specified factors, sequela; Z99.3 Dependence on wheelchair
CPT/HCPCS: 72100; 96372; 99285; J1885

== ENCOUNTER 2022-09-07 04:08 | Emergency (ER) | payer MEDICAID ==
[~2022-09-07] VITALS: Ht 195.6 cm; Wt 121.0 kg
[~2022-09-07 04:08] MED LIST changes: +IBUP-2028 MT; +PHEN100C4 MT
[2022-09-07 04:24] VITALS: BP 160/82
== END 2022-09-07 08:12 | disposition left against medical advice (07) ==
LOC: ER 04:08
DX: Z53.21 Procedure and treatment not carried out due to patient leaving prior to being seen by health care provider (principal)

== ENCOUNTER 2022-12-06 03:00 | Emergency (ER) | payer MEDICAID ==
[~2022-12-06] VITALS: Ht 195.6 cm; Wt 105.0 kg
[2022-12-06 03:20] VITALS: BP 150/81
== END 2022-12-06 07:44 | disposition left against medical advice (07) ==
LOC: ER 03:00
DX: Z53.21 Procedure and treatment not carried out due to patient leaving prior to being seen by health care provider (principal); M25.561 Pain in right knee; M79.89 Other specified soft tissue disorders
CPT/HCPCS: 99281

== ENCOUNTER 2023-01-13 04:39 | Emergency (ER) | payer MEDICAID ==
[~2023-01-13] VITALS: Ht 195.6 cm; Wt 115.0 kg
[2023-01-13] MEDS ORDERED: NAPR500T7 PO (05:31)
[2023-01-13] MEDS ORDERED: DOXY100T28 PO (05:31)
[2023-01-13] MEDS ORDERED: CETI10TA6 PO (05:31)
[2023-01-13 06:11] VITALS: BP 122/72
== END 2023-01-13 06:16 | disposition home or self-care (01) ==
LOC: ER 04:39
DX: L03.312 Cellulitis of back [any part except buttock and flank] (principal); L25.9 Unspecified contact dermatitis, unspecified cause; I10 Essential (primary) hypertension; G40.909 Epilepsy, unspecified, not intractable, without status epilepticus; Z79.899 Other long term (current) drug therapy; Z88.8 Allergy status to other drugs, medicaments and biological substances
CPT/HCPCS: 99283

== ENCOUNTER 2024-01-12 19:20 | Emergency (ER) | payer MEDICAID ==
[~2024-01-12] VITALS: Ht 182.9 cm; Wt 100.0 kg
[~2024-01-12 19:20] MED LIST changes: +CETI10TA6 PO; +DOXY100T28 PO; +NAPR500T7 PO
[2024-01-12 19:29] VITALS: BP 152/88; PULSE 84; RESP 18; TEMP 98.8; O2SAT 97
[2024-01-12] MEDS: PHENYTOIN SODIUM EXTENDED 100MG CAPSULE PO ONE (19:45)
[2024-01-12] MEDS: LEVETIRACETAM 500MG TABLET PO ONE (19:45)
[2024-01-12] MEDS ORDERED: PHEN100C4 MT (20:23)
[2024-01-12] MEDS ORDERED: VALP250C3 MT (20:23)
[2024-01-12] MEDS ORDERED: LEVE1000 MT (20:23)
== END 2024-01-12 20:14 | disposition home or self-care (01) ==
LOC: ER 19:20
DX: R56.9 Unspecified convulsions (principal); Z79.899 Other long term (current) drug therapy
CPT/HCPCS: 82962; 99283